=== PATIENT | male | born 1955 | race Caucasian/White ===

== ENCOUNTER 2017-05-12 22:17 | Inpatient (IN) | payer OTHER ==
[2017-05-12] MEDS ORDERED: VANCOMYCIN IV PER PHARMACY 1 EACH MISC MISCELLANE PRN (22:24)
[2017-05-12] MEDS ORDERED: ACETAMINOPHEN TAB 325 MG TAB PO STA (22:25)
[2017-05-12] MEDS: SODIUM CHLORIDE 0.9% 1,000 ML IV SCH (22:32)
[2017-05-12] MEDS ORDERED: NALOXONE 0.4 MG/ML 1 ML VIAL IV PRN (22:40)
[2017-05-12] MEDS ORDERED: ACETAMINOPHEN TAB 325 MG TAB PO PRN (22:40)
--- NOTE | 2017-05-12 22:47 | ED ---
General Adult HPI - General Chief complaint: Extremity Problem,Nontraumatic Stated complaint: Foot ulcer Time Seen by Provider: 05/12/17 22:23 Source: patient, EMS, RN notes reviewed, old records reviewed Mode of arrival: ambulatory Limitations: no limitations - History of Present Illness Initial comments: 61-year-old male with history diabetes presents for evaluation of fever and left foot swelling and erythema. Patient presented to an outside emergency department with these complaints. He was transferred here for further evaluation and treatment. Patient was found to have left lower extremity cellulitis secondary to diabetic wound. He was given a dose of Zosyn prior to transfer. Patient states he had 3 days of fever chills generalized weakness. Noticed that his foot was swollen and erythematous. Patient has no sensation in the lower feet secondary to peripheral neuropathy. He also complained of some lower abdominal pain. No dysuria. No change in bowel habits. Patient did have some nausea without vomiting. No chest pain or shortness of breath. No URI symptoms. - Related Data Home Medications Medication Instructions Recorded Confirmed Aspirin 81 mg PO DAILY 05/08/17 05/12/17 Cholecalciferol [Vitamin D3] 5,000 unit PO DAILY 05/08/17 05/12/17 DULoxetine HCL [Cymbalta] 30 mg PO HS 05/08/17 05/12/17 DULoxetine HCL [Cymbalta] 60 mg PO QAM 05/08/17 05/12/17 Gabapentin [Neurontin] 300 mg PO TID 05/08/17 05/12/17 Insulin Glargine,Hum.rec.anlog 22 unit SQ HS 05/08/17 05/12/17 [Lantus Solostar] Magnesium Oxide [Mag-Ox] 400 mg PO BID 05/08/17 05/12/17 Pioglitazone [Actos] 30 mg PO DAILY 05/08/17 05/12/17 metFORMIN HCL 1,000 mg PO BID 05/08/17 05/12/17 rOPINIRole HCL [Requip] 0.5 mg PO HS 05/08/17 05/12/17 Allergies Allergy/AdvReac Type Severity Reaction Status Date / Time No Known Allergies Allergy Verified 05/12/17 22:39 Review of Systems ROS Statement: Those systems with pertinent positive or pertinent negative responses have been documented in the HPI. ROS Other: All systems not noted in ROS Statement are negative. Past Medical History Past Medical History: Diabetes Mellitus Additional Past Medical History / Comment(s): back and neck pain History of Any Multi-Drug Resistant Organisms: None Reported Additional Past Surgical History / Comment(s): cyst removed back Past Anesthesia/Blood Transfusion Reactions: No Reported Reaction Past Psychological History: Depression Smoking Status: Never smoker - Past Family History Mother Family Medical History: Cancer Father Family Medical History: Myocardial Infarction ([place]) General Exam Limitations: no limitations General appearance: alert, in no apparent distress Head exam: Present: atraumatic, normocephalic Eye exam: Present: normal appearance, PERRL ENT exam: Present: mucous membranes dry Neck exam: Present: normal inspection. Absent: tenderness, meningismus Respiratory exam: Present: normal lung sounds bilaterally. Absent: respiratory distress Cardiovascular Exam: Present: regular rate, normal rhythm GI/Abdominal exam: Present: soft. Absent: distended, tenderness exam: Present: normal inspection. Absent: testicular tenderness, urethral discharge, scrotal swelling Extremities exam: Present: pedal edema, other (Left foot is erythematous, swollen, no fluctuance to suggest focal abscess. No crepitus.). Absent: tenderness Neurological exam: Present: alert, oriented X3, CN II-XII intact. Absent: motor sensory deficit Psychiatric exam: Present: normal affect, normal mood Skin exam: Present: warm, dry, intact Course Vital Signs 05/12/17 22:19 Temperature 102.1 F H Pulse Rate 102 H Respiratory 20 Rate Blood Pressure 113/55 O2 Sat by Pulse 95 Oximetry Medical Decision Making - Medical Decision Making 61-year-old male transferred for evaluation treatment of left foot cellulitis with sepsis. Laboratory studies were obtained, white blood cell count 15.8, hemoglobin 12.8, lactic acid 1.6, creatinine 1.0, there was mild hyponatremia at 129. Blood cultures were obtained at outside institution and are pending. Sedimentation rate was elevated at 72. CT the abdomen was performed and interpreted as inflammation surrounding both the bladder and prostate consistent with cystitis and proctitis. Urinalysis is obtained at this institution as well as urine culture. Patient was given a dose antibiotics prior to this culture being obtained. There was also 11 mm liver lesion. X- ray of the foot shows soft tissue swelling, no subcutaneous gas or osteomyelitis. Patient given Zosyn prior to transfer. He is continued on Zosyn and started on vancomycin. He will be admitted for continued antibiotics. Urinalysis and urine culture pending. Repeat labs will be obtained in the morning. Disposition Clinical Impression: Cellulitis, Cellulitis of left foot, Sepsis Disposition: ADMITTED IP TO THIS HOSP Condition: Stable Referrals: Shashank Kumar MD [Primary Care Provider] - 1-2 days Decision to Admit Reason: Admit from EC Decision Date: 05/12/17 Decision Time: 22:47
[2017-05-12] MEDS ORDERED: VANCOMYCIN 1,500 MG in SODIUM CHLORIDE 0.9% 250 ML IVPB ONE (23:30)
[2017-05-12 23:35] LABS: Glucose,Whole Blood 211 mg/dL (75-99)
[2017-05-13] MEDS: SODIUM CHLORIDE 0.9% 1,000 ML IV SCH (00:17)
[2017-05-13] MEDS: INSULIN DETEMIR 100 UNIT/ML 10 ML VIAL SQ SCH ×2 (00:17→21:57)
[2017-05-13] MEDS: PIPERACILLIN-TAZOBACTAM 3.375 GM in DEXTROSE/WATER 1 50ML.BAG IVPB SCH ×4 (03:06→17:54)
[2017-05-13 07:07] LABS: Glucose,Whole Blood 251 mg/dL (75-99)
[2017-05-13 07:38] LABS: Basophils % (A) 0 %; Eosinophils % (A) 0 %; HCT 36.2 % (39.0-53.0); HGB 11.7 gm/dL (13.0-17.5); Lymphocytes # (A) 1.2 k/uL (1.0-4.8); Lymphocytes % (A) 10 %; MCH 29.8 pg (25.0-35.0); MCHC 32.4 g/dL (31.0-37.0); MCV 92.1 fL (80.0-100.0); Mean Platelet Volume 7.7; Monocytes # (A) 0.7 k/uL (0-1.0); Monocytes % (A) 6 %; Neutrophils # (A) 9.4 k/uL (1.3-7.7); Neutrophils % (A) 81 %; Platelet Count 199 k/uL (150-450); RBC 3.93 m/uL (4.30-5.90); RDW 12.7 % (11.5-15.5); WBC 11.6 k/uL (3.8-10.6)
[2017-05-13 08:01] LABS: ALT 67 U/L (21-72); AST 49 U/L (17-59); Albumin 3.3 g/dL (3.5-5.0); Alkaline Phosphatase 210 U/L (38-126); Anion Gap 9 mmol/L; Blood Urea Nitrogen 18 mg/dL (9-20); Carbon Dioxide 29 mmol/L (22-30); Chloride 97 mmol/L (98-107); Glucose 275 mg/dL (74-99); Magnesium 1.6 mg/dL (1.6-2.3); Potassium 4.5 mmol/L (3.5-5.1); Sodium 135 mmol/L (137-145); Total Bilirubin 0.8 mg/dL (0.2-1.3); Total Protein 5.9 g/dL (6.3-8.2)
[2017-05-13] MEDS: INSULIN ASPART 100 UNIT/ML 1 ML 10 ML VIAL SQ SCH ×4 (08:32→21:57)
[2017-05-13] MEDS: GABAPENTIN 300 MG CAP PO SCH ×3 (08:34→21:57)
[2017-05-13] MEDS: ASPIRIN 81 MG PO SCH (08:34)
[2017-05-13] MEDS: metFORMIN 500 MG TAB PO SCH ×3 (08:34→17:03)
[2017-05-13] MEDS: DULoxetine HCL 60 MG CAPSULE.DR PO SCH (08:34)
[2017-05-13] MEDS: VANCOMYCIN 1,500 MG in SODIUM CHLORIDE 0.9% 250 ML IVPB SCH ×2 (09:52→22:33)
[2017-05-13] MEDS ORDERED: PIPERACILLIN-TAZOBACTAM 3.375 GM in DEXTROSE/WATER 1 50ML.BAG IVPB SCH (11:00)
[2017-05-13 11:46] LABS: Glucose,Whole Blood 257 mg/dL (75-99)
[2017-05-13] MEDS ORDERED: VANCOMYCIN 1,500 MG in SODIUM CHLORIDE 0.9% 250 ML IVPB SCH (12:00)
[2017-05-13 12:23] LABS: Hemoglobin A1C 10.3 % (4.0-6.0)
--- NOTE | 2017-05-13 12:34 | P.HPIM ---
History of Present Illness 61-year-old male with history diabetes presents for evaluation of fever and left foot swelling and erythema. Patient presented to an outside emergency department with these complaints. He was transferred here for further evaluation and treatment. Patient was found to have left lower extremity cellulitis secondary to diabetic wound. He was given a dose of Zosyn prior to transfer. Patient states he had 3 days of fever chills generalized weakness. Noticed that his foot was swollen and erythematous. Patient has no sensation in the lower feet secondary to peripheral neuropathy. He also complained of some lower abdominal pain CAT scan of the abdomen his abdominal pain completely resolved now CAT scan of the abdomen did show proctitis CONTINUE his Zosyn and vancomycin, counseling infectious disease because of multiple antibiotic decisions in for his colitis and cellulitis although his cellulitis is not bad. Patient probably can be discharged tomorrow with antibiotics.. No dysuria. No change in bowel habits. Patient did have some nausea without vomiting. No chest pain or shortness of breath. No URI symptoms. Review of Systems REVIEW OF SYSTEMS: CONSTITUTIONAL: No fever, no malaise, no fatigue. HEENT: No recent visual problems or hearing problems. Denied any sore throat. CARDIOVASCULAR: No chest pain, orthopnea, PND, no palpitations, no syncope. PULMONARY: No shortness of breath, no cough, no hemoptysis. GASTROINTESTINAL: No diarrhea, no nausea, no vomiting, Normoactive bowel sounds. NEUROLOGICAL: No headaches, no weakness, no numbness. HEMATOLOGICAL: Denies any bleeding or petechiae. GENITOURINARY: Denies any burning micturition, frequency, or urgency. MUSCULOSKELETAL/RHEUMATOLOGICAL: Denies any joint pain, swelling, or any muscle pain. ENDOCRINE: Denies any polyuria or polydipsia. The rest of the 14-point review of systems is negative. Past Medical History Past Medical History: Diabetes Mellitus Additional Past Medical History / Comment(s): back and neck pain History of Any Multi-Drug Resistant Organisms: None Reported Additional Past Surgical History / Comment(s): upper back cyst removed Past Anesthesia/Blood Transfusion Reactions: No Reported Reaction Past Psychological History: Depression Smoking Status: Never smoker Past Alcohol Use History: Rare Past Drug Use History: None Reported - Past Family History Mother Family Medical History: Cancer Father Family Medical History: Myocardial Infarction ([place]) Medications and Allergies Home Medications Medication Instructions Recorded Confirmed Type Aspirin 81 mg PO DAILY 05/08/17 05/12/17 History Cholecalciferol [Vitamin D3] 5,000 unit PO DAILY 05/08/17 05/12/17 History DULoxetine HCL [Cymbalta] 30 mg PO HS 05/08/17 05/12/17 History DULoxetine HCL [Cymbalta] 60 mg PO QAM 05/08/17 05/12/17 History Gabapentin [Neurontin] 300 mg PO TID 05/08/17 05/12/17 History Insulin Glargine,Hum.rec.anlog 22 unit SQ HS 05/08/17 05/12/17 History [Lantus Solostar] Magnesium Oxide [Mag-Ox] 400 mg PO BID 05/08/17 05/12/17 History Pioglitazone [Actos] 30 mg PO DAILY 05/08/17 05/12/17 History metFORMIN HCL 1,000 mg PO BID 05/08/17 05/12/17 History rOPINIRole HCL [Requip] 0.5 mg PO HS 05/08/17 05/12/17 History Allergies Allergy/AdvReac Type Severity Reaction Status Date / Time No Known Allergies Allergy Verified 05/12/17 22:39 Physical Exam Vitals: Vital Signs Temp Pulse Pulse Resp BP BP Pulse Ox 05/13/17 07:00 98.9 F 97 16 163/96 94 L 05/12/17 23:37 98.0 F 97 16 117/69 97 05/12/17 22:19 102.1 F H 102 H 20 113/55 95 Intake and Output 05/12/17 05/13/17 05/13/17 22:59 06:59 14:59 Intake Total 50 Balance 50 Intake: Amount of Fluid Infused ( 50 ml) Other: Voiding Method Toilet Urinal # Voids 0 Weight 86.183 kg PHYSICAL EXAMINATION: GENERAL: The patient is alert and oriented x3, not in any acute distress. Well developed, well nourished. HEENT: Pupils are round and equally reacting to light. EOMI. No scleral icterus. No conjunctival pallor. Normocephalic, atraumatic. No pharyngeal erythema. No thyromegaly. CARDIOVASCULAR: S1 and S2 present. No murmurs, rubs, or gallops. PULMONARY: Chest is clear to auscultation, no wheezing or crackles. ABDOMEN: Soft, nontender, nondistended, normoactive bowel sounds. No palpable organomegaly. MUSCULOSKELETAL: No joint swelling or deformity. EXTREMITIES: No cyanosis, clubbing, left leg redness and cellulitis extending Adams meters about the ankle with local is of temperature. NEUROLOGICAL: Gross neurological examination did not reveal any focal deficits. SKIN: No rashes. Results CBC & Chem 7: 05/13/17 07:09 05/13/17 07:09 Labs: Abnormal Lab Results - Last 24 Hours (Table) 05/12/17 05/13/17 05/13/17 Range/Units 23:34 07:05 07:09 WBC 11.6 H (3.8-10.6) k/uL RBC 3.93 L (4.30-5.90) m/uL Hgb 11.7 L (13.0-17.5) gm/dL Hct 36.2 L (39.0-53.0) % Neutrophils # 9.4 H (1.3-7.7) k/uL Sodium (137-145) mmol/L Chloride (98-107) mmol/L Glucose (74-99) mg/dL POC Glucose (mg/dL) 211 H 251 H (75-99) mg/dL Alkaline Phosphatase (38-126) U/L Total Protein (6.3-8.2) g/dL Albumin (3.5-5.0) g/dL 05/13/17 05/13/17 Range/Units 07:09 11:44 WBC (3.8-10.6) k/uL RBC (4.30-5.90) m/uL Hgb (13.0-17.5) gm/dL Hct (39.0-53.0) % Neutrophils # (1.3-7.7) k/uL Sodium 135 L (137-145) mmol/L Chloride 97 L (98-107) mmol/L Glucose 275 H (74-99) mg/dL POC Glucose (mg/dL) 257 H (75-99) mg/dL Alkaline Phosphatase 210 H (38-126) U/L Total Protein 5.9 L (6.3-8.2) g/dL Albumin 3.3 L (3.5-5.0) g/dL Thrombosis Risk Factor Assmnt - Choose All That Apply Any of the Below Risk Factors Present?: Yes Each Factor Represents 1 point: Age 41-60 years, Obesity (BMI >25) Other Risk Factors: No Thrombosis Risk Factor Assessment Total Risk Factor Score: 2 Thrombosis Risk Factor Assessment Level: Low Risk Assessment and Plan Plan: -Left lower limb cellulitis: Continue vancomycin, consult infectious disease. -Possibly of proctitis of diverticulitis: Patient is on Zosyn which will be continued. -Type 2 diabetes mellitus well controlled blood sugars continue his home regimen with sliding scale insulin and titrated as needed -Chronic low back pain -Depression: Continue his home medications for that Plan is to continue Diovan emetics today possibly of discharge tomorrow patient probably can be discharged on Keflex and ciprofloxacin
[2017-05-13 16:26] LABS: Glucose,Whole Blood 198 mg/dL (75-99)
[2017-05-13] MEDS: AMPICILLIN-SULBACTAM 3 GM in SODIUM CHLORIDE 0.9% 100 ML IVPB SCH (17:03)
[2017-05-13 20:01] LABS: Glucose,Whole Blood 297 mg/dL (75-99)
[2017-05-13] MEDS: DULoxetine HCL 30 MG CAPSULE.DR PO SCH (21:57)
[2017-05-13 22:17] LABS: Appearance,Urine Clear (Clear); Bilirubin,Urine Negative (Negative); Blood,Urine Negative (Negative); Color,Urine Yellow; Glucose,Urine (UA) 4+ (Negative); Ketones,Urine Trace (Negative); Leukocyte Esterase,Urine Negative (Negative); Nitrite,Urine Negative (Negative); PH, Urine 5.5 (5.0-8.0); Protein,Urine Trace (Negative); Urobilinogen,Urine <2.0 mg/dL (<2.0)
[2017-05-14] MEDS: AMPICILLIN-SULBACTAM 3 GM in SODIUM CHLORIDE 0.9% 100 ML IVPB SCH ×2 (00:38→05:41)
[2017-05-14 06:59] LABS: HCT 32.3 % (39.0-53.0); MCH 31.2 pg (25.0-35.0); MCHC 34.1 g/dL (31.0-37.0); MCV 91.4 fL (80.0-100.0); Mean Platelet Volume 8.2; Platelet Count 200 k/uL (150-450); RBC 3.54 m/uL (4.30-5.90); RDW 13.5 % (11.5-15.5); WBC 12.5 k/uL (3.8-10.6)
[2017-05-14 07:09] LABS: Glucose,Whole Blood 257 mg/dL (75-99)
[2017-05-14 07:19] LABS: Anion Gap 9 mmol/L; Blood Urea Nitrogen 14 mg/dL (9-20); Calcium 8.9 mg/dL (8.4-10.2); Carbon Dioxide 28 mmol/L (22-30); Chloride 97 mmol/L (98-107); Glucose 239 mg/dL (74-99); Potassium 4.4 mmol/L (3.5-5.1); Sodium 134 mmol/L (137-145)
[2017-05-14] MEDS: INSULIN ASPART 100 UNIT/ML 1 ML 10 ML VIAL SQ SCH ×5 (09:03→21:08)
[2017-05-14] MEDS: GABAPENTIN 300 MG CAP PO SCH ×3 (09:04→21:08)
[2017-05-14] MEDS: PIOGLITAZONE 30 MG TAB PO SCH (09:04)
[2017-05-14] MEDS: DULoxetine HCL 60 MG CAPSULE.DR PO SCH (09:04)
[2017-05-14] MEDS: ASPIRIN 81 MG PO SCH (09:04)
[2017-05-14] MEDS: metFORMIN 500 MG TAB PO SCH ×2 (09:05→17:36)
[2017-05-14] MEDS: VANCOMYCIN 1,500 MG in SODIUM CHLORIDE 0.9% 250 ML IVPB SCH (09:05)
[2017-05-14] MEDS ORDERED: VANCOMYCIN 1,500 MG in SODIUM CHLORIDE 0.9% 250 ML IVPB SCH (10:57)
[2017-05-14 11:03] VITALS: BMI 30.7
[2017-05-14 11:36] LABS: Glucose,Whole Blood 303 mg/dL (75-99)
[2017-05-14] MEDS: SODIUM CHLORIDE 0.9% 1,000 ML IV SCH ×4 (12:50→23:36)
--- NOTE | 2017-05-14 16:24 | CONS ---
CONSULTATION DATE OF SERVICE: 05/14/17 REASON FOR CONSULTATION: Left foot cellulitis. HISTORY OF PRESENT ILLNESS: The patient is a 61-year-old male patient. The patient apparently started having a problem with his left foot mostly with swelling and redness. The patient did have a small superficial wound on the dorsum of the left foot. However, the patient thinks he may have injured it a few days ago. The area did become more swollen and red 2 days. The patient denies any pain as he did have underlying neuropathy. Apparently the patient started having a fever and chills and generalized weakness for which the patient went to an outside facility where the patient was evaluated. He was diagnosed with cellulitis. He did receive a dose of Zosyn and subsequently patient has been transferred to the [facility]. The patient was started on Unasyn and vancomycin and ID was consulted for further recommendations regarding antibiotic therapy. The patient currently denies having any chest pain or shortness of breath or cough. No abdominal pain and no diarrhea. REVIEW OF SYSTEMS: Constitutional: Positive for weakness along with the fever. Eyes: No complaint. ENT no complaint. Respiratory: No complaint. Cardiovascular: No complaint. Genitourinary no complaint. GASTROINTESTINAL: No complaint. Musculoskeletal as per HPI. Integumentary as per HPI. PSYCHOLOGICAL: No complaint. Endocrine no complaint. Neurologic no complaint. PAST MEDICAL HISTORY: Significant for diabetes mellitus, chronic back and neck pain, osteoarthritis, along with depression. PAST SURGICAL HISTORY: Cyst removed from the upper back. SOCIAL HISTORY: No history of smoking. Socially drinks. No drug use. FAMILY HISTORY: Father history of [place]. Mother history of cancer of unknown type. MEDICATION: Medications include the patient currently on Tylenol, aspirin, Cymbalta, Neurontin, NovoLog, Levemir, Glucophage, Narcan, Actos, Requip, Unasyn and vancomycin along with Silvadene cream. EXAMINATION: Blood pressure 117/56, pulse of 98, temperature of 99.1. He did have a fever of 102 on admission. He is 93% on room air. General description is a middle-aged male lying in bed in no distress. No tachypnea or accessory muscles of respiration use. HEENT: Shows slight pallor. No scleral icterus. Oral mucosal membranes dry. No pharyngeal erythema or thrush Neck trachea central. No thyromegaly. Lungs unlabored breathing. Clear to auscultation anteriorly. No wheeze or crackles. Heart S1, S2. Regular rate and rhythm. No murmur ABDOMEN: Soft, no tenderness. No guarding. No rigidity. no Organomegaly Extremities: No edema of the feet. Examination of the left foot with swelling, redness, slightly warm to touch. Did have evidence of athlete's foot. No fluctuation or induration. Neurological: Patient is awake, alert, oriented x3. Mood and affect normal. LABS: Hemoglobin is 11 with white count 12.5, BUN of 14, creatinine 0.84. No cultures done during this admission. DIAGNOSTIC IMPRESSION AND PLAN: Patient with left foot cellulitis with diffuse swelling and redness likely streptococcal disease. The patient also have a evidence of athlete's foot. Both his factor will point towards a streptococcal disease and Clinically doubt abscess or MRSA infection. PLAN: 1. We will switch antibiotic therapy to cefazolin 2 g q.8 hours and discontinue Unasyn and vancomycin. 2. Miconazole cream in between the toes twice a day. 3. Frantz wrap to keep some of the swelling down. 4. We will evaluate the patient tomorrow and if the patient did have overall improvement. He will be able to finish therapy with oral Keflex. Continue supportive care. MMODL / IJN: [id number] / ZEKE
[2017-05-14 17:00] LABS: Glucose,Whole Blood 285 mg/dL (75-99)
--- NOTE | 2017-05-14 17:22 | P.PN ---
Subjective Progress Note Date: 05/14/17 Progress note being dictated for Dr. Camacho. Interval history:61-year-old male with history diabetes presents for evaluation of fever and left foot swelling and erythema. Patient presented to an outside emergency department with these complaints. He was transferred here for further evaluation and treatment. Patient was found to have left lower extremity cellulitis secondary to diabetic wound. He was given a dose of Zosyn prior to transfer. Patient states he had 3 days of fever chills generalized weakness. Noticed that his foot was swollen and erythematous. Patient has no sensation in the lower feet secondary to peripheral neuropathy. He also complained of some lower abdominal pain CAT scan of the abdomen his abdominal pain completely resolved now CAT scan of the abdomen did show proctitis CONTINUE his Zosyn and vancomycin, counseling infectious disease because of multiple antibiotic decisions in for his colitis and cellulitis although his cellulitis is not bad. Patient probably can be discharged tomorrow with antibiotics.. No dysuria. No change in bowel habits. Patient did have some nausea without vomiting. No chest pain or shortness of breath. No URI symptoms. Review of Systems REVIEW OF SYSTEMS: CONSTITUTIONAL: No fever, no malaise, no fatigue. HEENT: No recent visual problems or hearing problems. Denied any sore throat. CARDIOVASCULAR: No chest pain, orthopnea, PND, no palpitations, no syncope. PULMONARY: No shortness of breath, no cough, no hemoptysis. GASTROINTESTINAL: No diarrhea, no nausea, no vomiting, Normoactive bowel sounds. NEUROLOGICAL: No headaches, no weakness, no numbness. HEMATOLOGICAL: Denies any bleeding or petechiae. GENITOURINARY: Denies any burning micturition, frequency, or urgency. MUSCULOSKELETAL/RHEUMATOLOGICAL: Denies any joint pain, swelling, or any muscle pain. ENDOCRINE: Denies any polyuria or polydipsia. The rest of the 14-point review of systems is negative. 05/14/2017. Persistent low-grade fevers, T-max 99.8. Complains of generalized weakness. Evaluated by infectious disease and antibiotics therapy adjusted to ceftezolin with Unasyn and vancomycin discontinued. Good diet intake denies nausea, vomiting, or diarrhea. Denies chest pain, palpitations or increased shortness of breath. Blood sugars elevated. Objective - Vital Signs Vital signs: Vital Signs Temp 99.1 F 05/14/17 14:29 Pulse 95 01/16/18 16:00 Resp 18 05/14/17 16:00 BP 109/56 05/14/17 14:29 Pulse Ox 93 L 05/14/17 14:29 Intake & Output 05/13/17 05/14/17 05/14/17 18:59 06:59 18:59 Intake Total 5579 307 7085 Balance 5536 196 8468 Weight 86.183 kg Intake: Intake, IV Titration 400 750 650 Amount Ampicillin-Sulbactam 3 gm 100 100 100 In Sodium Chloride 0.9% 100 ml @ 100 mls/hr IVPB Q6HR ROXI Rx#:[id number] Piperacillin-Tazobactam 3 50 .375 gm In Dextrose/Water 1 50ml.bag @ 12.5 mls/hr IVPB Q8H ROXI Rx#: [id number] Sodium Chloride 0.9% 1, 400 300 000 ml @ 50 mls/hr IV . Q20H ROXI Rx#:[id number] Vancomycin 1,500 mg In 250 250 Sodium Chloride 0.9% 250 ml @ 125 mls/hr IVPB BID@ 0900,2300 ROXI Rx#: [id number] Vancomycin 1,500 mg In 250 Sodium Chloride 0.9% 250 ml @ 125 mls/hr IVPB Q12HR ROXI Rx#:[id number] Oral [id number] Other: Voiding Method Toilet Toilet Toilet Urinal Urinal Urinal # Voids 3 1 3 - Exam GENERAL: The patient is alert and oriented x3, not in any acute distress. Well developed, well nourished. HEENT: Pupils are round and equally reacting to light. EOMI. No scleral icterus. No conjunctival pallor. Normocephalic, atraumatic. No pharyngeal erythema. No thyromegaly. CARDIOVASCULAR: S1 and S2 present. No murmurs, rubs, or gallops. PULMONARY: Chest is clear to auscultation, no wheezing or crackles. ABDOMEN: Soft, nontender, nondistended, normoactive bowel sounds. No palpable organomegaly. MUSCULOSKELETAL: No joint swelling or deformity. EXTREMITIES: No cyanosis, clubbing, left leg redness and cellulitis with Frantz wrap dressing clean dry and intact NEUROLOGICAL: Gross neurological examination did not reveal any focal deficits. SKIN: No rashes. - Labs CBC & Chem 7: 05/14/17 06:32 05/14/17 06:32 Labs: Abnormal Lab Results - Last 24 Hours (Table) 05/13/17 05/13/17 05/14/17 Range/Units 19:58 22:00 06:32 WBC 12.5 H (3.8-10.6) k/uL RBC 3.54 L (4.30-5.90) m/uL Hgb 11.0 L (13.0-17.5) gm/dL Hct 32.3 L (39.0-53.0) % Sodium (137-145) mmol/L Chloride (98-107) mmol/L Glucose (74-99) mg/dL POC Glucose (mg/dL) 297 H (75-99) mg/dL Urine Protein Trace H (Negative) Urine Glucose (UA) 4+ H (Negative) Urine Ketones Trace H (Negative) 05/14/17 05/14/17 05/14/17 Range/Units 06:32 07:07 11:30 WBC (3.8-10.6) k/uL RBC (4.30-5.90) m/uL Hgb (13.0-17.5) gm/dL Hct (39.0-53.0) % Sodium 134 L (137-145) mmol/L Chloride 97 L (98-107) mmol/L Glucose 239 H (74-99) mg/dL POC Glucose (mg/dL) 257 H 303 H (75-99) mg/dL Urine Protein (Negative) Urine Glucose (UA) (Negative) Urine Ketones (Negative) 05/14/17 Range/Units 16:58 WBC (3.8-10.6) k/uL RBC (4.30-5.90) m/uL Hgb (13.0-17.5) gm/dL Hct (39.0-53.0) % Sodium (137-145) mmol/L Chloride (98-107) mmol/L Glucose (74-99) mg/dL POC Glucose (mg/dL) 285 H (75-99) mg/dL Urine Protein (Negative) Urine Glucose (UA) (Negative) Urine Ketones (Negative) Microbiology - Last 24 Hours (Table) 05/13/17 22:00 Urine Culture - Preliminary Urine,Clean Catch Assessment and Plan Assessment: -Left lower limb cellulitis: Continue vancomycin, consult infectious disease. -Possibly of proctitis of diverticulitis: Patient is on Zosyn which will be continued. -Type 2 diabetes mellitus, HGBA1C 10.3 -Chronic low back pain -Depression: Continue his home medications for that Plan: Continue current medication regime ,monitoring. Antibiotics as per infectious disease. Increase IV fluids to 0.9 100 MLS per hour, persistent fevers. Close monitoring of Accu-Cheks, Levemir increased and pre-meal insulin added to med regime. Hemoglobin A1c 10.3 .informatics educator and dietitian consulted. Patient will also need outpatient diabetes education. Discharge planning in progress for tomorrow. The impression and plan of care has been dictated as directed. : I performed a history and examination of this patient, discussed the same with the dictator. I agree with the dictator's note ,documented as a scribe. Any additional findings or plans will be noted.
[2017-05-14] MEDS: ceFAZolin IN SWFI 2 GM/20 ML SYRINGE IVP SCH ×2 (17:36→23:36)
[2017-05-14 19:51] LABS: Glucose,Whole Blood 251 mg/dL (75-99)
[2017-05-14] MEDS ORDERED: INSULIN DETEMIR 100 UNIT/ML 10 ML VIAL SQ SCH (21:00)
[2017-05-14] MEDS: DULoxetine HCL 30 MG CAPSULE.DR PO SCH (21:08)
[2017-05-15 07:09] LABS: Basophils % (A) 0 %; Eosinophils # (A) 0.1 k/uL (0-0.7); Eosinophils % (A) 1 %; HCT 32.3 % (39.0-53.0); HGB 10.8 gm/dL (13.0-17.5); Lymphocytes # (A) 1.4 k/uL (1.0-4.8); Lymphocytes % (A) 12 %; MCH 30.5 pg (25.0-35.0); MCHC 33.5 g/dL (31.0-37.0); MCV 91.1 fL (80.0-100.0); Mean Platelet Volume 7.9; Monocytes # (A) 0.7 k/uL (0-1.0); Monocytes % (A) 6 %; Neutrophils % (A) 78 %; Platelet Count 230 k/uL (150-450); RBC 3.54 m/uL (4.30-5.90); RDW 13.1 % (11.5-15.5); WBC 11.5 k/uL (3.8-10.6)
[2017-05-15 07:20] LABS: Glucose,Whole Blood 112 mg/dL (75-99)
[2017-05-15] MEDS: INSULIN ASPART 100 UNIT/ML 1 ML 10 ML VIAL SQ SCH ×6 (07:25→20:42)
[2017-05-15] MEDS: ceFAZolin IN SWFI 2 GM/20 ML SYRINGE IVP SCH ×2 (07:25→16:29)
[2017-05-15] MEDS: GABAPENTIN 300 MG CAP PO SCH ×3 (07:26→21:00)
[2017-05-15] MEDS: metFORMIN 500 MG TAB PO SCH ×2 (07:26→18:21)
[2017-05-15] MEDS: DULoxetine HCL 60 MG CAPSULE.DR PO SCH (07:26)
[2017-05-15] MEDS: ASPIRIN 81 MG PO SCH (07:27)
[2017-05-15] MEDS: PIOGLITAZONE 30 MG TAB PO SCH (07:27)
[2017-05-15 07:34] LABS: Anion Gap 9 mmol/L; Blood Urea Nitrogen 14 mg/dL (9-20); Calcium 8.4 mg/dL (8.4-10.2); Carbon Dioxide 29 mmol/L (22-30); Chloride 99 mmol/L (98-107); Glucose 123 mg/dL (74-99); Sodium 137 mmol/L (137-145)
[2017-05-15] MEDS ORDERED: VANCOMYCIN TROUGH DUE 1 EACH MISC MISCELLANE ONE (08:00)
[2017-05-15 11:29] LABS: Glucose,Whole Blood 69 mg/dL (75-99)
[2017-05-15] MEDS: SODIUM CHLORIDE 0.9% 1,000 ML IV SCH ×3 (13:12→20:44)
[2017-05-15] MEDS: MICONAZOLE NITRATE 2% CREAM 14 GM TUBE TOPICAL SCH ×2 (13:12→20:43)
--- NOTE | 2017-05-15 14:25 | PN ---
PROGRESS NOTE DATE OF SERVICE: 05/15/2017 REASON FOR FOLLOWUP: Left foot cellulitis, athlete's foot. INTERVAL HISTORY: The patient is afebrile, has been breathing comfortably. Denies having any significant chest pain. No cough. No abdominal pain. No nausea, vomiting, or any diarrhea. PHYSICAL EXAMINATION: His blood pressure is 123/71 with a pulse of 94, temperature of 98.9. He is 92% on room air. General description is a middle-aged male, up in the chair in no distress. RESPIRATORY SYSTEM: Unlabored breathing, clear to auscultation anteriorly. HEART: S1, S2, regular rate and rhythm. ABDOMEN: Soft, no tenderness. Left foot swelling is slightly improved. LABS: Hemoglobin is 10.1, white count 11.5, BUN of 14, creatinine 0.82. Culture has been negative. DIAGNOSTIC IMPRESSION AND PLAN: 1. Patient with left foot cellulitis. Overall responding to the cefazolin. Recommend finish therapy with oral Keflex 500 mg q.6 for 10 days. Script was sent to the Pharmacy. 2. Athlete's foot in between toes. Also recommend an Frantz wrap to keep some of the swelling down. MMODL / IJN: [id number] /
--- NOTE | 2017-05-15 17:12 | P.PN ---
Subjective Progress Note Date: 05/15/17 Progress note being dictated for Dr. Camacho. Interval history:61-year-old male with history diabetes presents for evaluation of fever and left foot swelling and erythema. Patient presented to an outside emergency department with these complaints. He was transferred here for further evaluation and treatment. Patient was found to have left lower extremity cellulitis secondary to diabetic wound. He was given a dose of Zosyn prior to transfer. Patient states he had 3 days of fever chills generalized weakness. Noticed that his foot was swollen and erythematous. Patient has no sensation in the lower feet secondary to peripheral neuropathy. He also complained of some lower abdominal pain CAT scan of the abdomen his abdominal pain completely resolved now CAT scan of the abdomen did show proctitis CONTINUE his Zosyn and vancomycin, counseling infectious disease because of multiple antibiotic decisions in for his colitis and cellulitis although his cellulitis is not bad. Patient probably can be discharged tomorrow with antibiotics.. No dysuria. No change in bowel habits. Patient did have some nausea without vomiting. No chest pain or shortness of breath. No URI symptoms. Review of Systems REVIEW OF SYSTEMS: CONSTITUTIONAL: No fever, no malaise, no fatigue. HEENT: No recent visual problems or hearing problems. Denied any sore throat. CARDIOVASCULAR: No chest pain, orthopnea, PND, no palpitations, no syncope. PULMONARY: No shortness of breath, no cough, no hemoptysis. GASTROINTESTINAL: No diarrhea, no nausea, no vomiting, Normoactive bowel sounds. NEUROLOGICAL: No headaches, no weakness, no numbness. HEMATOLOGICAL: Denies any bleeding or petechiae. GENITOURINARY: Denies any burning micturition, frequency, or urgency. MUSCULOSKELETAL/RHEUMATOLOGICAL: Denies any joint pain, swelling, or any muscle pain. ENDOCRINE: Denies any polyuria or polydipsia. The rest of the 14-point review of systems is negative. 05/14/2017. Persistent low-grade fevers, T-max 99.8. Complains of generalized weakness. Evaluated by infectious disease and antibiotics therapy adjusted to ceftezolin with Unasyn and vancomycin discontinued. Good diet intake denies nausea, vomiting, or diarrhea. Denies chest pain, palpitations or increased shortness of breath. Blood sugars elevated. 05/15/2017 maintained on cefazolin, afebrile. ambulating in hallway, with walker , generalized weakness. Discussed subacute rehab and patient agreeable to. Consult initiated for PT/OT. Blood sugars running on the lower side today. Denies chest pain palpitations or increasing shortness of breath. Good diet intake. Denies abdominal pain, no nausea vomiting or diarrhea. Objective - Vital Signs Vital signs: Vital Signs Temp 97.9 F 05/15/17 15:00 Pulse 96 05/15/17 16:00 Resp 16 05/15/17 16:00 BP 121/71 05/15/17 15:00 Pulse Ox 97 05/15/17 15:00 Intake & Output 05/14/17 05/15/17 05/15/17 18:59 06:59 18:59 Intake Total 1730 640 800 Balance 1730 640 800 Weight 86.183 kg 86.183 kg 86.183 kg Intake: Intake, IV Titration 650 400 800 Amount Ampicillin-Sulbactam 3 gm 100 In Sodium Chloride 0.9% 100 ml @ 100 mls/hr IVPB Q6HR [facility] Rx#:[id number] Sodium Chloride 0.9% 1, 300 400 800 000 ml @ 100 mls/hr IV . Q10H [facility] Rx#:[id number] Vancomycin 1,500 mg In 250 Sodium Chloride 0.9% 250 ml @ 125 mls/hr IVPB Q12HR [facility] Rx#:[id number] Oral 1080 240 Other: Voiding Method Toilet Toilet Toilet Urinal Urinal Urinal # Voids 3 1 # Bowel Movements 1 - Exam GENERAL: The patient is alert and oriented x3, not in any acute distress. Well developed, well nourished. HEENT: Pupils are round and equally reacting to light. EOMI. No scleral icterus. No conjunctival pallor. Normocephalic, atraumatic. No pharyngeal erythema. No thyromegaly. CARDIOVASCULAR: S1 and S2 present. No murmurs, rubs, or gallops. PULMONARY: Unlabored, Chest is clear to auscultation, no wheezing or crackles. ABDOMEN: Soft, nontender, nondistended, normoactive bowel sounds. No palpable organomegaly. MUSCULOSKELETAL: No joint swelling or deformity. EXTREMITIES: No cyanosis, clubbing, left leg redness and cellulitis with Frantz wrap dressing clean dry and intact NEUROLOGICAL: Gross neurological examination did not reveal any focal deficits. SKIN: No rashes. - Labs CBC & Chem 7: 05/15/17 06:46 05/15/17 06:46 Labs: Abnormal Lab Results - Last 24 Hours (Table) 05/14/17 05/15/17 05/15/17 Range/Units 19:50 06:46 06:46 WBC 11.5 H (3.8-10.6) k/uL RBC 3.54 L (4.30-5.90) m/uL Hgb 10.8 L (13.0-17.5) gm/dL Hct 32.3 L (39.0-53.0) % Neutrophils # 9.0 H (1.3-7.7) k/uL Glucose 123 H (74-99) mg/dL POC Glucose (mg/dL) 251 H (75-99) mg/dL 05/15/17 05/15/17 Range/Units 07:18 11:27 WBC (3.8-10.6) k/uL RBC (4.30-5.90) m/uL Hgb (13.0-17.5) gm/dL Hct (39.0-53.0) % Neutrophils # (1.3-7.7) k/uL Glucose (74-99) mg/dL POC Glucose (mg/dL) 112 H 69 L (75-99) mg/dL Microbiology - Last 24 Hours (Table) 05/13/17 22:00 Urine Culture - Final Urine,Clean Catch Assessment and Plan Assessment: -Left lower limb cellulitis: Continue vancomycin, consult infectious disease. -Possibly of proctitis of diverticulitis: Patient is on Zosyn which will be continued. -Type 2 diabetes mellitus, HGBA1C 10.3 -Chronic low back pain -Depression Plan: Continue current medication regime ,monitoring. Antibiotics as per infectious disease. PT/OT for potential subacute rehab. Close monitoring of Accu-Cheks, Levemir decreased. Discharge planning in progress for tomorrow. Obtain O2 sat on room air after ambulation for discharge planning. The impression and plan of care has been dictated as directed. : I performed a history and examination of this patient, discussed the same with the dictator. I agree with the dictator's note ,documented as a scribe. Any additional findings or plans will be noted.
[2017-05-15 17:15] LABS: Glucose,Whole Blood 134 mg/dL (75-99)
[2017-05-15 20:22] LABS: Glucose,Whole Blood 168 mg/dL (75-99)
[2017-05-15] MEDS: DULoxetine HCL 30 MG CAPSULE.DR PO SCH (20:42)
[2017-05-15] MEDS: INSULIN DETEMIR 100 UNIT/ML 10 ML VIAL SQ SCH (20:43)
[2017-05-16] MEDS: ceFAZolin IN SWFI 2 GM/20 ML SYRINGE IVP SCH ×3 (00:26→17:27)
[2017-05-16 07:09] LABS: Glucose,Whole Blood 69 mg/dL (75-99)
[2017-05-16 07:30] LABS: Glucose,Whole Blood 87 mg/dL (75-99)
[2017-05-16] MEDS: metFORMIN 500 MG TAB PO SCH (08:41)
[2017-05-16] MEDS: GABAPENTIN 300 MG CAP PO SCH ×3 (08:41→22:18)
[2017-05-16] MEDS: DULoxetine HCL 60 MG CAPSULE.DR PO SCH (08:41)
[2017-05-16] MEDS: MICONAZOLE NITRATE 2% CREAM 14 GM TUBE TOPICAL SCH ×2 (08:42→22:17)
[2017-05-16] MEDS: ASPIRIN 81 MG PO SCH (08:42)
[2017-05-16] MEDS: PIOGLITAZONE 30 MG TAB PO SCH (08:42)
[2017-05-16] MEDS: INSULIN ASPART 100 UNIT/ML 1 ML 10 ML VIAL SQ SCH ×5 (08:51→23:47)
--- NOTE | 2017-05-16 10:36 | XR ---
EXAMINATION TYPE: XR chest 2V DATE OF EXAM: 05/16/2017 COMPARISON: NONE HISTORY: Shortness of breath TECHNIQUE: Frontal and lateral views of the chest are obtained. FINDINGS: Scattered senescent parenchymal changes noted. Elevation right hemidiaphragm. Patchy density right medial lung base may reflect chronic parenchymal scarring from diaphragmatic chino vation. Underlying infiltrate is difficult to exclude. Heart size is stable. Mediastinal structures are stable and grossly unremarkable. No evidence for hilar prominence. Degenerative changes dorsal spine. IMPRESSION: 1. Patchy density right medial lung base may reflect chronic parenchymal scarring from diaphragmatic elevation. Underlying infiltrate is difficult to exclude.
[2017-05-16] MEDS ORDERED: RX INFO: IV CONTRAST WAS GIVEN 1 EACH MISC MISCELLANE PRN (11:39)
[2017-05-16 11:45] LABS: Glucose,Whole Blood 161 mg/dL (75-99)
[2017-05-16] MEDS: SODIUM CHLORIDE 0.9% 1,000 ML IV SCH (13:08)
[2017-05-16] MEDS ORDERED: LIDOCAINE 1% INJ 10MG/ML (20 ML MDV) SQ ONE (13:20)
--- NOTE | 2017-05-16 16:49 | P.PN ---
Subjective Progress Note Date: 05/16/17 Progress note being dictated for Dr. Camacho. Interval history:61-year-old male with history diabetes presents for evaluation of fever and left foot swelling and erythema. Patient presented to an outside emergency department with these complaints. He was transferred here for further evaluation and treatment. Patient was found to have left lower extremity cellulitis secondary to diabetic wound. He was given a dose of Zosyn prior to transfer. Patient states he had 3 days of fever chills generalized weakness. Noticed that his foot was swollen and erythematous. Patient has no sensation in the lower feet secondary to peripheral neuropathy. He also complained of some lower abdominal pain CAT scan of the abdomen his abdominal pain completely resolved now CAT scan of the abdomen did show proctitis CONTINUE his Zosyn and vancomycin, counseling infectious disease because of multiple antibiotic decisions in for his colitis and cellulitis although his cellulitis is not bad. Patient probably can be discharged tomorrow with antibiotics.. No dysuria. No change in bowel habits. Patient did have some nausea without vomiting. No chest pain or shortness of breath. No URI symptoms. Review of Systems REVIEW OF SYSTEMS: CONSTITUTIONAL: No fever, no malaise, no fatigue. HEENT: No recent visual problems or hearing problems. Denied any sore throat. CARDIOVASCULAR: No chest pain, orthopnea, PND, no palpitations, no syncope. PULMONARY: No shortness of breath, no cough, no hemoptysis. GASTROINTESTINAL: No diarrhea, no nausea, no vomiting, Normoactive bowel sounds. NEUROLOGICAL: No headaches, no weakness, no numbness. HEMATOLOGICAL: Denies any bleeding or petechiae. GENITOURINARY: Denies any burning micturition, frequency, or urgency. MUSCULOSKELETAL/RHEUMATOLOGICAL: Denies any joint pain, swelling, or any muscle pain. ENDOCRINE: Denies any polyuria or polydipsia. The rest of the 14-point review of systems is negative. 05/14/2017. Persistent low-grade fevers, T-max 99.8. Complains of generalized weakness. Evaluated by infectious disease and antibiotics therapy adjusted to ceftezolin with Unasyn and vancomycin discontinued. Good diet intake denies nausea, vomiting, or diarrhea. Denies chest pain, palpitations or increased shortness of breath. Blood sugars elevated. 05/15/2017 maintained on cefazolin, afebrile. ambulating in hallway, with walker , generalized weakness. Discussed subacute rehab and patient agreeable to. Consult initiated for PT/OT. Blood sugars running on the lower side today. Denies chest pain palpitations or increasing shortness of breath. Good diet intake. Denies abdominal pain, no nausea vomiting or diarrhea. 05/16/2017 ambulated in hallway on room air with O2 sat after ambulation 88%. Chest x-ray ,D-DImer ordered. Afected foot with abscess appearing on sole, Dr. Sen consulted. PT/OT consult in place with recommendations pending. Afebrile. Objective - Vital Signs Vital signs: Vital Signs Temp 97.9 F 05/16/17 10:44 Pulse 95 05/16/17 10:44 Resp 16 05/16/17 15:20 BP 113/61 05/16/17 10:44 Pulse Ox 93 L 05/16/17 10:44 Intake & Output 05/15/17 05/16/17 05/16/17 18:59 06:59 18:59 Intake Total 800 1600 800 Balance 800 1600 800 Weight 86.183 kg Intake: IV 800 Sodium Chloride 0.9% 1, 800 000 ml @ 100 mls/hr IV . Q10H [facility] Rx#:[id number] Intake, IV Titration 800 1600 Amount Sodium Chloride 0.9% 1, 800 1600 000 ml @ 100 mls/hr IV . Q10H [facility] Rx#:[id number] Other: Voiding Method Toilet Toilet Toilet Urinal Urinal Urinal # Voids 2 - Exam GENERAL: The patient is alert and oriented x3, not in any acute distress. Well developed, well nourished. HEENT: Pupils are round and equally reacting to light. EOMI. No scleral icterus. No conjunctival pallor. Normocephalic, atraumatic. No pharyngeal erythema. No thyromegaly. CARDIOVASCULAR: S1 and S2 present. No murmurs, rubs, or gallops. PULMONARY: Unlabored, Chest is clear to auscultation, no wheezing or crackles. ABDOMEN: Soft, nontender, nondistended, normoactive bowel sounds. No palpable organomegaly. MUSCULOSKELETAL: No joint swelling or deformity. EXTREMITIES: No cyanosis, clubbing, left leg redness and cellulitis with Frantz wrap dressing clean dry and intact. Bottom of foot with possible abscess appearance. NEUROLOGICAL: Gross neurological examination did not reveal any focal deficits. SKIN: No rashes. - Labs CBC & Chem 7: 05/15/17 06:46 05/15/17 06:46 Labs: Abnormal Lab Results - Last 24 Hours (Table) 05/15/17 05/15/17 05/16/17 Range/Units 17:13 20:20 07:04 D-Dimer (<0.60) mg/L FEU POC Glucose (mg/dL) 134 H 168 H 69 L (75-99) mg/dL 05/16/17 05/16/17 Range/Units 10:03 11:33 D-Dimer 1.62 H (<0.60) mg/L FEU POC Glucose (mg/dL) 161 H (75-99) mg/dL Assessment and Plan Assessment: -Left lower limb cellulitis with possible abscess on bottom of foot -Possibly of proctitis of diverticulitis -Type 2 diabetes mellitus, HGBA1C 10.3 -Chronic low back pain -Depression -Acute hypoxic respiratory failure, workup in progress Plan: Continue current medication regime ,monitoring. Antibiotics as per infectious disease. Chest x-ray and d-dimer ordered. If d-dimer elevated will proceed with chest CTA. PT/OT for potential subacute rehab-recommendations pending. Close monitoring of Accu-Cheks. Vascular surgery consulted regarding potential foot abscess. The impression and plan of care has been dictated as directed. : I performed a history and examination of this patient, discussed the same with the dictator. I agree with the dictator's note ,documented as a scribe. Any additional findings or plans will be noted.
--- NOTE | 2017-05-16 16:55 | PN ---
PROGRESS NOTE DATE OF SERVICE: 05/16/2017. REASON FOR FOLLOWUP: Right foot abscess and cellulitis. INTERVAL HISTORY: The patient is afebrile, has been breathing comfortably. Denies significant chest pain. No cough. No abdominal pain or any worsening pain in the right foot area. EXAMINATION: Blood pressure is 120/59 with a pulse of 103, temperature of 98.6. He is 93% on room air. General description is a middle-aged male lying in bed in no distress. RESPIRATORY SYSTEM: Unlabored breathing. Clear to auscultation anteriorly. HEART: S1, S2. Regular rate and rhythm. ABDOMEN: Soft, no tenderness. RIGHT FOOT: Currently the dorsum swelling and redness improved, however, did have a fluctuant mass on the plantar aspect likely an abscess. LABS: Hemoglobin is 10.8, white count 11.5. DIAGNOSTIC IMPRESSION AND PLAN: Patient with right foot abscess and cellulitis, now with more prominent abscess on the plantar aspect of the right foot. Vascular Surgery will be consulted for I and D of this area and deep cultures. Keep the patient on cefazolin at this point. Continue supportive care. MMODL / IJN: [id number] /
[2017-05-16 17:25] LABS: Glucose,Whole Blood 152 mg/dL (75-99)
--- NOTE | 2017-05-16 18:19 | XR ---
EXAMINATION TYPE: XR foot complete LT DATE OF EXAM: 05/16/2017 COMPARISON: 05/12/2017 HISTORY: Possible foreign body TECHNIQUE: 3 views FINDINGS: On the lateral view there is a 4 x 2 mm linear density near the skin surface at the plantar aspect of the forefoot. This is probably at the first MP joint. I see no fracture. There is vascular calcification. There is plantar and Achilles calcaneal spurring. There is soft tissue swelling of th e forefoot. IMPRESSION: Small foreign body at the plantar aspect of the first MP joint without change in position compared to last exam. There is soft tissue swelling. No fracture seen.
--- NOTE | 2017-05-16 18:32 | PCN ---
PROCEDURE NOTE PREOP DIAGNOSIS: Cellulitis versus abscess, left foot plantar aspect. PROCEDURE: I and D under local anesthesia. This patient was seen in his room. Left foot has marked tenderness and redness noted on the plantar and dorsum aspect of the foot. There is some skin color changes noted on the plantar aspect. 1% lidocaine infiltrate after foot was prepped with the ChloraPrep. Drapes applied in usual manner. 1% lidocaine infiltrated into the plantar aspect of the left foot and a small incision was made and deepened through skin, fat, and some fluid came out but no active pus was noted. Pressure was intact. We used hemostats to spread the incision. Wound culture was taken and the wound was irrigated with saline and dressing applied. Patient tolerated the procedure well. MMODL / IJN: [id number] /
--- NOTE | 2017-05-16 18:33 | CT ---
EXAMINATION TYPE: CT angio chest DATE OF EXAM: 05/16/2017 5:00 PM COMPARISON: NONE HISTORY: R/O PE. CT DLP: 417.1 mGycm Automated exposure control for dose reduction was used. CONTRAST: CTA scan of the thorax is performed with IV Contrast, patient injected with 65 mL of Omnipaque 300, p ulmonary embolism protocol. There are 3-D post processed images.. FINDINGS: There are bilateral pleural effusions. There is some patchy mild infiltrate and atelectasis at the keegan ng bases and more on the right side. Thoracic aorta is atheromatous. There is no evidence of dissection or aneurysm. There is no mediastinal adenopathy. There are no hilar masses. I see no filling defects in the pulmon jeffrey arteries. Heart size is normal. There is no pericardial effusion. I see no bony destructive proce ss. IMPRESSION: NO EVIDENCE OF PULMONARY EMBOLISM. PLEURAL EFFUSIONS WITH BILATERAL LOWER LOBE PNEUMONIA AND ATELECTA SIS. THIS IS WORSE ON THE RIGHT SIDE.
[2017-05-16] MEDS ORDERED: HYDROcodone/APAP 5-325MG 1 EACH TAB PO PRN (19:36)
[2017-05-16 20:35] LABS: Glucose,Whole Blood 177 mg/dL (75-99)
[2017-05-16] MEDS: DULoxetine HCL 30 MG CAPSULE.DR PO SCH (22:09)
[2017-05-16] MEDS: INSULIN DETEMIR 100 UNIT/ML 10 ML VIAL SQ SCH (22:10)
[2017-05-17] MEDS: SODIUM CHLORIDE 0.9% 1,000 ML IV SCH ×2 (00:31→04:39)
[2017-05-17] MEDS: ceFAZolin IN SWFI 2 GM/20 ML SYRINGE IVP SCH ×4 (00:31→23:56)
[2017-05-17] MEDS: INSULIN ASPART 100 UNIT/ML 1 ML 10 ML VIAL SQ SCH ×7 (07:27→21:17)
[2017-05-17] MEDS ORDERED: FUROSEMIDE 10 MG/ML 4 ML VIAL IV STA (07:45)
[2017-05-17 07:50] LABS: Glucose,Whole Blood 75 mg/dL (75-99)
--- NOTE | 2017-05-17 07:51 | P.PN ---
Subjective Patient was admitted for cellulitis of the left leg patient is found to have a foreign body Dr. Jonse was consulted. Patient is on Keflex patient is also was also treated for colitis and patient has desaturations does have bilateral pleural effusions rule out pulmonary embolism and will obtain echocardiogram BNP we'll give a dose of Lasix IV fluids will be discontinued. Patient is still having significant pain in the left leg and foot Constitutional: Denied any fatigue denied any fever. Cardio vascular: denied any chest pain, palpitations Gastrointestinal denied any nausea vomiting Pulmonary: Denied any shortness of breath cough Neurologic denied any new focal deficits Objective - Vital Signs Vital signs: Vital Signs Temp 98.8 F 05/16/17 23:00 Pulse 98 05/16/17 23:00 Resp 16 05/16/17 23:00 BP 147/77 05/16/17 23:00 Pulse Ox 94 L 05/16/17 23:00 Intake & Output 05/16/17 05/17/17 05/17/17 18:59 06:59 18:59 Intake Total 800 1040 Balance 800 1040 Intake: IV 800 Sodium Chloride 0.9% 1, 800 000 ml @ 100 mls/hr IV . Q10H [facility] Rx#:[id number] Oral 1040 Other: Voiding Method Toilet Toilet Urinal Urinal # Voids 2 - Exam GENERAL: The patient is alert and oriented x3, not in any acute distress. Well developed, well nourished. HEENT: Pupils are round and equally reacting to light. EOMI. No scleral icterus. No conjunctival pallor. Normocephalic, atraumatic. No pharyngeal erythema. No thyromegaly. CARDIOVASCULAR: S1 and S2 present. No murmurs, rubs, or gallops. PULMONARY: Unlabored, Chest is clear to auscultation, no wheezing or crackles. ABDOMEN: Soft, nontender, nondistended, normoactive bowel sounds. No palpable organomegaly. MUSCULOSKELETAL: No joint swelling or deformity. EXTREMITIES: No cyanosis, clubbing, left leg redness and cellulitis with Frantz wrap dressing clean dry and intact. Bottom of foot with possible abscess appearance. NEUROLOGICAL: Gross neurological examination did not reveal any focal deficits. SKIN: No rashes. - Labs CBC & Chem 7: 05/15/17 06:46 05/15/17 06:46 Labs: Abnormal Lab Results - Last 24 Hours (Table) 05/16/17 05/16/17 05/16/17 Range/Units 10:03 11:33 17:18 D-Dimer 1.62 H (<0.60) mg/L FEU POC Glucose (mg/dL) 161 H 152 H (75-99) mg/dL 05/16/17 Range/Units 20:31 D-Dimer (<0.60) mg/L FEU POC Glucose (mg/dL) 177 H (75-99) mg/dL Microbiology - Last 24 Hours (Table) 05/16/17 16:37 Gram Stain - Preliminary Foot - Left Wound Culture - Preliminary Assessment and Plan Plan: Assessment and Plan Assessment: -Left lower limb cellulitis with possible foreign body and vitamin the left foot , Dr. Sen is evaluating the patient -Possibly of proctitis of diverticulitis -Type 2 diabetes mellitus, HGBA1C 10.3 -Chronic low back pain -Depression -Acute hypoxic respiratory failure, patient hypoxemia secondary to bilateral pleural effusions IV fluids will be discontinued echocardiogram will be obtained patient will be started on Lasix Rule out pulmonary embolism Plan: Continue current medication regime ,monitoring. Antibiotics as per infectious disease. Chest x-ray and d-dimer ordered. If d-dimer elevated will proceed with chest CTA. PT/OT for potential subacute rehab-recommendations pending. Close monitoring of Accu-Cheks.
[2017-05-17] MEDS: MICONAZOLE NITRATE 2% CREAM 14 GM TUBE TOPICAL SCH ×2 (07:59→21:17)
[2017-05-17] MEDS: GABAPENTIN 300 MG CAP PO SCH ×3 (08:00→21:17)
[2017-05-17] MEDS: ASPIRIN 81 MG PO SCH (08:00)
[2017-05-17] MEDS: PIOGLITAZONE 30 MG TAB PO SCH (08:00)
[2017-05-17] MEDS: DULoxetine HCL 60 MG CAPSULE.DR PO SCH (08:01)
--- NOTE | 2017-05-17 08:45 | CONS ---
CONSULTATION This is a 61-year-old gentleman who has been admitted to [facility]. I was consulted by Infectious Disease to follow up for left foot marked cellulitis and tenderness. The patient had this for the last 5 days. Then he decided to come to the hospital. Patient has no history of trauma. Patient has a long-standing history of neuropathy and he has no feeling on his left foot. The patient also has been diagnosed with possible diverticulitis and patient is on IV antibiotic. MEDICAL HISTORY: History of diabetes, peripheral neuropathy. PHYSICAL EXAMINATION: Patient was seen in his room. Neck is supple, trachea central. Chest is clear to auscultation. Abdomen is soft. Femoral pulses are present. Patient has marked tenderness and redness noted to the dorsum distal aspect of the foot and also plantar aspect of the foot. There are some skin changes noted on the plantar aspect of foot with some fluctuation. Patient's foot is very tender on palpation. IMPRESSION: Cellulitis with possible abscess, possible foreign body. We will make a small incision and drainage to take some culture. MMODL / IJN: [id number] /
--- NOTE | 2017-05-17 10:32 | ECHOF ---
Referral Reason:Possible CHF MEASUREMENTS -------- HEIGHT: 165.1 cm WEIGHT: 86.2 kg BP: RVIDd: 2.3 cm (< 3.3) IVSd: 1.0 cm (0.6 - 1.1) LVIDd: 4.1 cm (3.9 - 5.3) LVPWd: 1.4 cm (0.6 - 1.1) IVSs: 1.6 cm LVIDs: 2.4 cm LVPWs: 1.4 cm LA Diam: 3.4 cm (2.7 - 3.8) Ao Diam: 2.7 cm (2.0 - 3.7) AV Cusp: 1.8 cm (1.5 - 2.6) LA Diam: 3.6 cm (2.7 - 3.8) MV EXCURSION: 17.007 mm (> 18.000) MV EF SLOPE: 68 mm/s (70 - 150) EPSS: 0.5 cm MV E Tristen: 0.56 m/s MV DecT: 249 ms MV A Tristen: 0.74 m/s MV E/A Ratio: 0.76 RAP: 5.00 mmHg RVSP: 10.09 mmHg FINDINGS -------- Sinus rhythm. This was a technically good study. LV size, wall thickness and systolic function are normal, with an EF greater than 55%. The right ventricle is normal in size. The left atrial size is normal. The right atrial size is normal. The aortic valve is trileaflet, and appears structurally normal. No aortic stenosis or regurgitation. Mild mitral regurgitation is present. Mild tricuspid regurgitation present. There is no evidence of pulmonary hypertension. The right v entricular systolic pressure, as measured by Doppler, is 10.09mmHg. There is no pulmonic regurgitation present. The aortic root size is normal. There is a trivial pericardial effusion present. CONCLUSIONS -------- 1. LV size, wall thickness and systolic function are normal, with an EF greater than 55%. 2. The aortic valve is trileaflet, and appears structurally normal. No aortic stenosis or regurgitati on. 3. Mild mitral regurgitation is present. 4. Mild tricuspid regurgitation present. 5. There is no evidence of pulmonary hypertension. 6. The right ventricular systolic pressure, as measured by Doppler, is 10.09mmHg. 7. There is no pulmonic regurgitation present. 8. The aortic root size is normal. 9. There is a trivial pericardial effusion present. SPECIAL INVESTIGATOR: Мария Abdullahi RDCS
[2017-05-17 11:29] LABS: Glucose,Whole Blood 135 mg/dL (75-99)
--- NOTE | 2017-05-17 16:48 | PN ---
PROGRESS NOTE DATE OF SERVICE: 05/17/2017. REASON FOR FOLLOWUP: Left foot abscess and cellulitis. INTERVAL HISTORY: The patient is afebrile. The patient did have a bedside incision of the left foot, some serous fluid. No significant redness was noted. The patient denies any worsening pain to the left foot area. Denies having any chest pain or shortness of breath or cough. No abdominal pain or any diarrhea. EXAMINATION: Blood pressure is 102/59 with a pulse of 94, temperature of 98.8. He is 92% on room air. General description is a middle-aged male lying in bed in no distress. RESPIRATORY SYSTEM: Unlabored breathing. Clear to auscultation anteriorly. HEART: S1, S2. Regular rate and rhythm. ABDOMEN: Soft, no tenderness. Left foot did have a blister on the plantar aspect: No drainage was noticed. LABS: White count of 11.5. Cultures obtained yesterday are currently pending. DIAGNOSTIC IMPRESSION AND PLAN: Patient with left foot abscess and cellulitis, status post bedside I and D. Plan at this time is to wait for the culture to finalize, keep the patient on cefazolin this point. Continue supportive care. MMODL / IJN: [id number] /
[2017-05-17 17:28] LABS: Glucose,Whole Blood 164 mg/dL (75-99)
[2017-05-17 19:55] LABS: Glucose,Whole Blood 156 mg/dL (75-99)
[2017-05-17] MEDS: DULoxetine HCL 30 MG CAPSULE.DR PO SCH (21:17)
[2017-05-17] MEDS: INSULIN DETEMIR 100 UNIT/ML 10 ML VIAL SQ SCH (21:18)
[2017-05-18 07:24] LABS: Glucose,Whole Blood 77 mg/dL (75-99)
[2017-05-18 07:36] LABS: MCHC 33.3 g/dL (31.0-37.0); Mean Platelet Volume 7.7; Platelet Count 315 k/uL (150-450); RBC 3.66 m/uL (4.30-5.90); WBC 11.2 k/uL (3.8-10.6)
[2017-05-18] MEDS: INSULIN ASPART 100 UNIT/ML 1 ML 10 ML VIAL SQ SCH ×7 (07:58→20:26)
[2017-05-18 08:00] LABS: Anion Gap 9 mmol/L; Blood Urea Nitrogen 11 mg/dL (9-20); Calcium 9.2 mg/dL (8.4-10.2); Carbon Dioxide 33 mmol/L (22-30); Chloride 96 mmol/L (98-107); Glucose 84 mg/dL (74-99); Sodium 138 mmol/L (137-145)
[2017-05-18] MEDS: ceFAZolin IN SWFI 2 GM/20 ML SYRINGE IVP SCH ×2 (08:04→17:53)
[2017-05-18] MEDS: ASPIRIN 81 MG PO SCH (08:05)
[2017-05-18] MEDS: PIOGLITAZONE 30 MG TAB PO SCH (08:05)
[2017-05-18] MEDS: DULoxetine HCL 60 MG CAPSULE.DR PO SCH (08:05)
[2017-05-18] MEDS: GABAPENTIN 300 MG CAP PO SCH ×3 (08:05→20:27)
[2017-05-18] MEDS: MICONAZOLE NITRATE 2% CREAM 14 GM TUBE TOPICAL SCH ×2 (08:06→20:27)
[2017-05-18 11:15] LABS: Glucose,Whole Blood 70 mg/dL (75-99)
--- NOTE | 2017-05-18 12:12 | XR ---
EXAMINATION TYPE: XR foot complete LT , 3 VIEWS DATE OF EXAM ORDERED: 05/18/2017 there is some soft tissue swelling over the dorsum of the foot. No os seous lesion is seen. HISTORY: foreign body. COMPARISON: Previous study dated 05/16/2017. FINDINGS: Tiny, 4.5 mm sliver of radiopaque material projects over the left first MTP joint, unchang ed from previous. IMPRESSION: TINY, FOREIGN BODY ADJACENT TO THE LEFT FIRST MTP JOINT, UNCHANGED FROM PREVIOUS.
--- NOTE | 2017-05-18 13:28 | PN ---
PROGRESS NOTE This is a 61-year-old gentleman. He came with marked cellulitis of the left foot, plantar dorsum aspect. Patient had an I&D, we took some cultures. We also ordered x-ray of the foot and found to have a 4.5 mm radiopaque material projecting over the left metatarsophalangeal joint. The culture report is pending. I have asked Orthopedic to look into this foreign body for removal. Discussed with Dr. Desir. MMODL / IJN: [id number] /
[2017-05-18 16:58] LABS: Glucose,Whole Blood 135 mg/dL (75-99)
--- NOTE | 2017-05-18 18:27 | PN ---
PROGRESS NOTE DATE OF SERVICE: 05/18/2017. INTERVAL HISTORY: This 61-year-old gentleman admitted with left foot cellulitis also had possibly a foreign body also in the joint. Infectious Disease and Vascular Surgery following the patient closely. Orthopedic evaluation in progress. No chest pain. No palpitations. No fever. EXAM: Alert and oriented times three. Pulse 99, blood pressure 130/72, respiration 18, temperature 98.2, pulse ox 98% on room air. HEENT: Conjunctivae normal. Neck: No jugular venous distention. Cardiovascular: S1, S2 muffled. Respiratory: Breath sounds diminished in the bases. No rhonchi and no crackles. Abdomen is soft, nontender. Legs: Status post the left leg wound present. Nervous system: No focal deficits. LAB STUDIES: WBC 11.1, hemoglobin 10. ASSESSMENT: 1. Left foot abscess and cellulitis with possible foreign body. 2. Possible diverticulitis. 3. Diabetes type 2. 4. Uncontrol in the outpatient setting. 5. Chronic low back pain, degenerative joint disease. 6. Depression. 7. Acute hypoxic respiratory failure with bilateral pleural effusion. 8. Increased WBC. RECOMMENDATIONS AND DISCUSSION: In this 61-year-old gentleman who presented with multiple complex medical issues , we will monitor the patient closely. Continue the symptomatic treatment, current broad- spectrum IV antibiotics. Cultures are growing no significant organisms so far. Otherwise continue to monitor. Prognosis guarded. Further recommendations to follow. MMODL / IJN: [id number] / MTDD
[2017-05-18 19:46] LABS: Glucose,Whole Blood 224 mg/dL (75-99)
[2017-05-18] MEDS: INSULIN DETEMIR 100 UNIT/ML 10 ML VIAL SQ SCH (20:26)
[2017-05-18] MEDS: DULoxetine HCL 30 MG CAPSULE.DR PO SCH (20:27)
--- NOTE | 2017-05-18 23:01 | PN ---
PROGRESS NOTE DATE OF SERVICE: 05/18/2017 REASON FOR FOLLOWUP: Left foot abscess and cellulitis. INTERVAL HISTORY: The patient is afebrile, has been breathing comfortably. Denies having any significant chest pain or cough. No abdominal pain or any worsening pain in the left foot area. EXAMINATION: Blood pressure 131/72 with a pulse of 99, temperature of 98.2. He is 92% on room air. General description is a middle-aged male, lying in bed in no distress. RESPIRATORY SYSTEM: Unlabored breathing. Clear to auscultation anteriorly. HEART: S1, S2. Regular rate and rhythm. ABDOMEN: Soft. No tenderness. Left foot swelling and redness improved on the plantar aspect, did have a blister that has been opened up. No purulence was expressed out. LABS: Hemoglobin is 11, white count of 11.2. Culture has been negative so far. DIAGNOSTIC IMPRESSION AND PLAN: Patient with left foot abscess and cellulitis with a foreign body for which the patient did have surgery at bedside. The patient to continue with cefazolin, hopefully finish therapy with oral antibiotics. Continue with supportive care. MMODL / IJN: [id number] /
[2017-05-19] MEDS: ceFAZolin IN SWFI 2 GM/20 ML SYRINGE IVP SCH ×4 (01:02→23:52)
[2017-05-19 06:59] LABS: Glucose,Whole Blood 105 mg/dL (75-99)
[2017-05-19 07:52] VITALS: RESP 18
[2017-05-19] MEDS: INSULIN ASPART 100 UNIT/ML 1 ML 10 ML VIAL SQ SCH ×7 (08:35→21:20)
[2017-05-19] MEDS: ASPIRIN 81 MG PO SCH (08:40)
[2017-05-19] MEDS: GABAPENTIN 300 MG CAP PO SCH ×3 (08:40→21:20)
[2017-05-19] MEDS: DULoxetine HCL 60 MG CAPSULE.DR PO SCH (08:40)
[2017-05-19] MEDS: PIOGLITAZONE 30 MG TAB PO SCH (08:40)
[2017-05-19] MEDS: MICONAZOLE NITRATE 2% CREAM 14 GM TUBE TOPICAL SCH ×2 (08:40→21:20)
--- NOTE | 2017-05-19 10:26 | P.CNOR ---
History of Present Illness - [facility] Consult date: 05/19/17 Requesting physician: Denton Sen History of present illness: 61-year-old patient who presented to [facility] on with complaint of left foot pain and cellulitis. He subsequently was admitted. He has a history of insulin-dependent diabetes and peripheral neuropathy. He was appropriately treated by infectious disease for his cellulitis. He was seen by vascular and underwent incision of a probable plantar sided abscess on 05/16/17. Orthopedic consultation was request regarding a radiopaque foreign body which was seen on radiographs. Overall his symptoms have significantly improved during his hospital course. Review of Systems Constitutional: Reports as per [facility] Past Medical History Past Medical History: Diabetes Mellitus Additional Past Medical History / Comment(s): back and neck pain History of Any Multi-Drug Resistant Organisms: None Reported Additional Past Surgical History / Comment(s): upper back cyst removed Past Anesthesia/Blood Transfusion Reactions: No Reported Reaction Past Psychological History: Depression Smoking Status: Never smoker Past Alcohol Use History: Rare Past Drug Use History: None Reported - Past Family History Mother Family Medical History: Cancer Father Family Medical History: Myocardial Infarction ([place]) Medications and Allergies Home Medications Medication Instructions Recorded Confirmed Type Aspirin 81 mg PO DAILY 05/08/17 05/12/17 History Cholecalciferol [Vitamin D3] 5,000 unit PO DAILY 05/08/17 05/12/17 History DULoxetine HCL [Cymbalta] 30 mg PO HS 05/08/17 05/12/17 History DULoxetine HCL [Cymbalta] 60 mg PO QAM 05/08/17 05/12/17 History Gabapentin [Neurontin] 300 mg PO TID 05/08/17 05/12/17 History Insulin Glargine,Hum.rec.anlog 22 unit SQ HS 05/08/17 05/12/17 History [Lantus Solostar] Magnesium Oxide [Mag-Ox] 400 mg PO BID 05/08/17 05/12/17 History Pioglitazone [Actos] 30 mg PO DAILY 05/08/17 05/12/17 History metFORMIN HCL 1,000 mg PO BID 05/08/17 05/12/17 History rOPINIRole HCL [Requip] 0.5 mg PO HS 05/08/17 05/12/17 History Cephalexin [Keflex] 500 mg PO Q6HR #40 cap 05/15/17 Rx Nystatin 100,000Unit/gm Cream 1 applic TOPICAL BID #30 gm 05/15/17 Rx [Mycostatin Cream] Allergies Allergy/AdvReac Type Severity Reaction Status Date / Time No Known Allergies Allergy Verified 05/12/17 22:39 Physical Examination Osteopathic Statement: *. No significant issues noted on an osteopathic structural exam other than those noted in the History and Physical/Consult. There appears to be some residual callus along the plantar aspect of the left foot. There is evidence for previous incision along the plantar aspect of his foot where he had his incision and drainage performed. He has diffuse decreased sensation about the foot. He is able to move his toes with no pain. There is no obvious erythema present on examination today. There is no obvious drainage present on examination today. He seems to have good perfusion of the toes. Results - Labs Labs: Abnormal Lab Results - Last 24 Hours (Table) 05/18/17 05/18/17 05/18/17 Range/Units 11:08 16:56 19:45 POC Glucose (mg/dL) 70 L 135 H 224 H (75-99) mg/dL 05/19/17 Range/Units 06:57 POC Glucose (mg/dL) 105 H (75-99) mg/dL Microbiology - Last 24 Hours (Table) 05/16/17 16:37 Gram Stain - Final Foot - Left Wound Culture - Final H & H 05/13/17 05/14/17 05/15/17 Range/Units 07:09 06:32 06:46 Hgb 11.7 L 11.0 L 10.8 L (13.0-17.5) gm/dL Hct 36.2 L 32.3 L 32.3 L (39.0-53.0) % 05/18/17 Range/Units 06:52 Hgb 11.0 L (13.0-17.5) gm/dL Hct 33.0 L (39.0-53.0) % Result Diagrams: 05/18/17 06:52 05/18/17 06:52 - Diagnostic results Ankle/Foot x-ray: report reviewed, image reviewed (There appears to be a tiny radiopaque foreign body very superficial plantar aspect area great toe MTP joint ) Assessment and Plan Assessment: 1. Resolving left foot cellulitis 2. Tiny radiopaque foreign body plantar aspect left foot seen on plain radiographs 3. History of insulin-dependent diabetes Plan: I discussed his resolving cellulitis with essentially no obvious erythema on exam today. I reviewed that tiny radiopaque foreign body which seems very superficial and reviewed attempted exploration of the area to see if I can visualize it and remove it. He was agreeable. I will proceed with that exploration of the superficial plantar aspect of the foot today. Time with Patient: Less than 30
--- NOTE | 2017-05-19 10:30 | P.OP ---
Date of Procedure: 05/19/17 Preoperative Diagnosis: Resolving left foot cellulitis with possible foreign body plantar aspect left foot Postoperative Diagnosis: Same Procedure(s) Performed: Exploration superficial soft tissues plantar aspect left foot with removal of callus tissue Anesthesia: none Surgeon: Khurram Greene Estimated Blood Loss (ml): 0 Pathology: none sent Condition: stable Disposition: PACU Indications for Procedure: 61-year-old patient seen with resolving cellulitis of the left foot and possible radiopaque foreign body. I recommended exploration of the superficial plantar aspect of the foot with possible removal of foreign body. Patient was agreeable and verbal consent was given. Description of Procedure: The plantar aspect of the left foot was prepped and draped in the normal sterile fashion. I removed some residual callus tissue in the area. I explored the subcutaneous tissue of the MTP joint great toe for any evidence of foreign body. I do not appreciate any obvious foreign body. I could not visualize any foreign body. After spending an abundant amount of time exploring the area no obvious foreign body could be identified. Sterile dressings were then applied and patient tolerated the procedure well. From my perspective no additional orthopedic intervention is indicated. If the patient would have persistent issues down the road I would recommend referral to a foot and ankle specialist.
[2017-05-19 11:39] LABS: Glucose,Whole Blood 113 mg/dL (75-99)
[2017-05-19 17:19] LABS: Glucose,Whole Blood 151 mg/dL (75-99)
--- NOTE | 2017-05-19 17:57 | XR ---
EXAMINATION TYPE: XR chest 1V portable DATE OF EXAM: 05/19/2017 COMPARISON: May 16, 1999 HISTORY: Shortness of breath TECHNIQUE: Single frontal view of the chest is obtained. FINDINGS: There is no focal air space opacity, pleural effusion, or pneumothorax seen. The cardiac silhouette size is within normal limits. The osseous structures are intact. Right hemidiaphragm is elevated, stable. IMPRESSION: No acute process.
--- NOTE | 2017-05-19 18:44 | PN ---
PROGRESS NOTE DATE OF SERVICE: 05/19/2017. INTERVAL HISTORY: This 61-year-old gentleman who was admitted with left foot abscess and cellulitis, suspected of foreign body which is not evident in Dr. Greene' surgery done today. No chest pain. No palpitations. No fever. Wound care and outpatient antibiotics recommended at this time. No chest pain. No palpitations. No shortness of breath. PHYSICAL EXAM: Alert and oriented x3. Pulse 98, blood pressure 139/82, respiration 18, temperature 97.2, pulse ox 94% on room air. HEENT: Conjunctivae normal. Oral mucosa moist. Neck is no jugular venous distention. No carotid bruit. No lymph node enlargement. Cardiovascular: S1, S2 muffled. Respirations: Breath sounds diminished at the bases. A few scattered rhonchi. No crackles. ABDOMEN: Soft. Legs: Left leg status post surgery. Nervous system: No focal deficits. LAB STUDIES: At this time, show WBC 11.9, hemoglobin 11 and Accu-Cheks noted. ASSESSMENT: 1. Left foot abscess and cellulitis status post debridement with no evidence of foreign body. 2. Possible diverticulitis. 3. Diabetes type 2 uncontrolled in the outpatient setting. 4. History of chronic low back pain, degenerative joint disease. 5. Depression. 6. Acute hypoxic respiratory failure with bilateral pleural effusion. 7. Increased WBC. RECOMMENDATIONS AND DISCUSSION: In this 61-year-old gentleman who presented with multiple complex medical issues, we will monitor the patient closely, continue the current medications and management and symptomatic treatment. A chest CTA was done 4 days ago which showed bilateral pleural effusion and atelectasis. Recommend to continue the current management and treatment for the symptomatic treatment. Continue the antibiotics. Wound care to be arranged as well as outpatient antibiotics if necessary. Otherwise, prognosis guarded and I would order repeat chest x-ray as well. Further recommendations to follow. MMODL / IJN: [id number] /
[2017-05-19 20:08] LABS: Glucose,Whole Blood 221 mg/dL (75-99)
[2017-05-19] MEDS: INSULIN DETEMIR 100 UNIT/ML 10 ML VIAL SQ SCH (21:20)
[2017-05-19] MEDS: DULoxetine HCL 30 MG CAPSULE.DR PO SCH (21:20)
[2017-05-19] MEDS: MAGNESIUM OXIDE 400 MG TAB PO SCH (21:30)
--- NOTE | 2017-05-20 06:51 | PN ---
PROGRESS NOTE DATE OF SERVICE: 05/19/2017 REASON FOR FOLLOWUP: Left foot abscess and cellulitis. INTERVAL HISTORY: The patient is afebrile. The patient did have further debridement of the callus on the left foot. No evidence of any foreign body. The surgery was done by Orthopedics. The patient denies any pain in the foot area. Denies any chest pain or shortness of breath or cough. No abdominal pain or diarrhea. PHYSICAL EXAMINATION: On examination, blood pressure 133/90 with a pulse of 98, temperature of 97.9. He is 94% on room air. General description is a middle-aged male lying in bed in no distress. RESPIRATORY SYSTEM: Unlabored breathing, clear to auscultation anteriorly. HEART: S1, S2. Regular rate and rhythm. ABDOMEN: Soft, no tenderness. Left foot wound over the plantar aspect no slough tissue. Wound culture has been negative. DIAGNOSTIC IMPRESSION AND PLAN: Patient with left foot cellulitis and abscess, infected callus, status post debridement. Culture has been negative for resistant pathogen. Overall improvement on cefazolin. Plan to finish therapy with p.o. Keflex 500 mg q.6 for 10 days. Script has been sent to the pharmacy. Local wound care with Aquacel Silver packing, offloading and follow up in the office in one week. MMODL / IJN: [id number] /
[2017-05-20 07:16] LABS: Glucose,Whole Blood 269 mg/dL (75-99)
[2017-05-20] MEDS: ceFAZolin IN SWFI 2 GM/20 ML SYRINGE IVP SCH (07:45)
[2017-05-20] MEDS: INSULIN ASPART 100 UNIT/ML 1 ML 10 ML VIAL SQ SCH ×4 (07:46→12:21)
[2017-05-20] MEDS: MAGNESIUM OXIDE 400 MG TAB PO SCH (07:47)
[2017-05-20] MEDS: PIOGLITAZONE 30 MG TAB PO SCH (07:48)
[2017-05-20] MEDS: GABAPENTIN 300 MG CAP PO SCH (07:48)
[2017-05-20] MEDS: MICONAZOLE NITRATE 2% CREAM 14 GM TUBE TOPICAL SCH (07:48)
[2017-05-20] MEDS: ASPIRIN 81 MG PO SCH (07:49)
[2017-05-20] MEDS: DULoxetine HCL 60 MG CAPSULE.DR PO SCH (07:49)
[2017-05-20 08:44] VITALS: BP 133/80; PULSE 91; TEMP 98.1
[2017-05-20] MEDS ORDERED: CHOLECALCIFEROL 1,000 UNIT TAB PO SCH (09:00)
[2017-05-20 11:22] LABS: Glucose,Whole Blood 242 mg/dL (75-99)
--- NOTE | 2017-05-20 15:12 | PN ---
PROGRESS NOTE DATE OF SERVICE: 05/20/2017. REASON FOR FOLLOWUP: Left foot cellulitis and wound. INTERVAL HISTORY: The patient is afebrile, breathing comfortably. Denies having any cough. No abdominal pain or any pain in left foot area. PHYSICAL EXAMINATION: Blood pressure 133/81, temperature 98.1. He is 91% on room air. General description is a middle aged male lying in bed in no distress. Respiratory system: Unlabored breathing. Clear to auscultation anteriorly. HEART: S1, S2. Regular rate and rhythm. Abdomen soft, no tenderness. The left foot overall swelling and redness is improved. No drainage. LABS: No new labs have been obtained today. Culture has been negative. DIAGNOSTIC IMPRESSION AND PLAN: Patient with left foot blister, infected ulcer with cellulitis. Culture remains to be negative for any resistant pathogen. Patient did overall improvement on the cefazolin with a plan to finish therapy with oral Keflex with close outpatient followup. MMODL / IJN: [id number] /
--- NOTE | 2017-05-21 10:50 | DS ---
DISCHARGE SUMMARY FINAL DIAGNOSES: 1. Left foot abscess cellulitis status post debridement with no evidence of foreign body. 2. Possible diverticulitis. 3. Diabetes type 2, uncontrolled in the outpatient setting. 4. History of chronic low back pain/degenerative joint disease. 5. Depression. 6. Acute hypoxic respiratory failure and bilateral pleural effusion. DISCHARGE DISPOSITION: The patient is being discharged in stable condition with guarded prognosis. HISTORY OF PRESENT ILLNESS: This 61-year-old gentleman with past medical history of multiple medical problems, admitted with left foot abscess and cellulitis. Foreign body could not be found despite extensive search by vascular surgery and orthopedic surgery. Patient improved significantly. On exam, vitals are stable. Cardiovascular is S1, S2. Abdomen is soft. Nervous system: No focal deficits. Examination of the right foot status post wound. The patient is being discharged in stable condition. DISCHARGE ADVICE AND MEDICATIONS: 1. Diet is cardiac diet. 2. Activity limited until followup. 3. Follow up with Dr. Kumar as advised. 4. Follow up with Dr. Sen and Dr. Knox as advised. MEDICATIONS ARE: Prior to admission include: 1. Tylenol 650 q.6h p.r.n. 2. Aspirin 81 mg daily. 3. Keflex 500 mg q.6h for 10 days. 4. Vitamin D3 500 mg p.o. daily. 5. Cymbalta 30 mg p.o. q.h.s. 6. Cymbalta 60 mg p.o. q.a.m. 7. Neurontin 300 mg t.i.d. 8. Lantus 22 subcu q.h.s. 9. Magnesium oxide 400 mg b.i.d. 10.Metformin 1000 mg b.i.d. 11.Nystatin one application topically. 12.Actos 30 mg p.o. daily. 13.Requip 0.5 mg q.h.s. 14. MMODL / IJN: [id number] /
== END 2017-05-20 13:45 | disposition home or self-care (01) | DRG 987 ==
LOC: EC 22:17 → 5MS5E 22:47
PROVIDERS: ADMIT Hospitalist; ATTEND Hospitalist
PROC: 0J9R0ZZ Drainage of Left Foot Subcutaneous Tissue and Fascia, Open Approach (ICD-10-PCS; principal; 2017-05-16)
PROC: 0HBNXZZ Excision of Left Foot Skin, External Approach (ICD-10-PCS; 2017-05-19)
DX: E11.621 Type 2 diabetes mellitus with foot ulcer (principal); J96.01 Acute respiratory failure with hypoxia; L97.529 Non-pressure chronic ulcer of other part of left foot with unspecified severity; E11.42 Type 2 diabetes mellitus with diabetic polyneuropathy; E87.1 Hypo-osmolality and hyponatremia; E11.65 Type 2 diabetes mellitus with hyperglycemia; B35.3 Tinea pedis; L03.116 Cellulitis of left lower limb; L02.612 Cutaneous abscess of left foot; E11.628 Type 2 diabetes mellitus with other skin complications; M54.2 Cervicalgia; F32.9 Major depressive disorder, single episode, unspecified; M54.5 Low back pain; S90.822A Blister (nonthermal), left foot, initial encounter; G89.29 Other chronic pain; Z79.4 Long term (current) use of insulin; Z79.82 Long term (current) use of aspirin; Z79.899 Other long term (current) drug therapy; Z82.49 Family history of ischemic heart disease and other diseases of the circulatory system
CPT/HCPCS: 71045; 71046; 71275; 80048; 80053; 81003; 83036; 83735; 83880; 85025; 85027; 85379; 87070; 87086; 87205; 93306; 94760; 99285

== ENCOUNTER → 2018-09-18 | Outpatient (CLI) | payer OTHER ==
[~2018-09-18] MED LIST: IODINE/POTASS IOD (LUGOLS) 8 ML BTL TOPICAL ONE
--- NOTE | 2018-09-20 13:59 | NM ---
EXAMINATION TYPE: NM DatScan Brain SPECT DATE OF EXAM: 09/18/2018 COMPARISON: NONE HISTORY: Tremors TECHNIQUE: 10 drops of Lugol's solution was administered 1 hour prior to injection as a thyroid bloc clifton agent. After the administration of 4.44 mCi I-123 Ioflupane DaTscan. Images obtained 3 hours p ost injection. SPECT images of the brain were acquired with axial and coronal reconstructions. FINDINGS: The striata shows a normal appearance, symmetric comma-shape uptake is noted. IMPRESSION: Normal PATRICA scan
== END | disposition home or self-care (01) ==
LOC: RADNMMAIN 11:07
PROVIDERS: ATTEND Psychiatry & Neurology Neurology
DX: G25.0 Essential tremor (principal)
CPT/HCPCS: 78607; A9584

== ENCOUNTER 2019-08-22 14:55 | Inpatient (IN) | payer OTHER ==
--- NOTE | 2019-08-22 15:09 | ED ---
General Adult HPI - General Chief complaint: Chest Pain Stated complaint: STEMI/Rule out COVID Time Seen by Provider: 08/22/19 15:07 Source: patient, EMS Mode of arrival: EMS Limitations: no limitations - History of Present Illness Initial comments: Patient presents the ED by ambulance from an outside hospital emergency department where he was initially evaluated. Patient had an EKG, labs and CT imaging done there. These results were all reviewed myself. Per outside hospital emergency department physician, the patient was noted to have inferior lead ST elevations on his initial EKG and his troponin was elevated. Patient's head CT was negative. Patient's CT angiogram chest was negative for pulmonary emboli, but did show a possible multilobar interstitial process per report. Patient reports to me that he has had diffuse chest pain and bilateral upper leg pain for the past 4 days or so. Patient also states that he fell twice today. Patient denies head injury or LOC/syncope. Patient denies sustaining any injury from his falls. Patient admits to currently having 7/10 chest pain. Patient also admits to having a cough for the past 2 days. Patient denies fever or chills, headache, focal neuro deficit, neck/arm/jaw/back pain, pleuritic pain, hemoptysis, dyspnea, palpitations, dizziness, abdominal pain, nausea/vomiting/diarrhea, urinary symptoms, leg swelling, or any other symptoms or complaints. Patient was given IV heparin, aspirin and nitroglycerin at the outside hospital. No Covid-19 test was performed at the outside hospital. - Related Data Home Medications Medication Instructions Recorded Confirmed Aspirin 81 mg PO DAILY 05/08/17 08/12/17 Cholecalciferol [Vitamin D3 (25 5,000 unit PO DAILY 05/08/17 08/12/17 Mcg = 1000 Iu)] DULoxetine HCL [Cymbalta] 30 mg PO HS 05/08/17 08/12/17 DULoxetine HCL [Cymbalta] 60 mg PO QAM 05/08/17 08/12/17 Gabapentin [Neurontin] 300 mg PO TID 05/08/17 08/12/17 Insulin Glargine,Hum.rec.anlog 22 unit SQ HS 05/08/17 08/12/17 [Lantus Solostar] Magnesium Oxide [Mag-Ox] 400 mg PO BID 05/08/17 08/12/17 Pioglitazone [Actos] 30 mg PO DAILY 05/08/17 08/12/17 metFORMIN HCL 1,000 mg PO BID 05/08/17 08/12/17 rOPINIRole HCL [Requip] 0.5 mg PO HS 05/08/17 08/12/17 Previous Rx's Medication Instructions Recorded Nystatin 100,000Unit/gm Cream 1 applic TOPICAL BID #30 gm 05/15/17 [Mycostatin Cream] Acetaminophen Tab [Tylenol] 650 mg PO Q6HR PRN tab 05/20/17 Allergies Allergy/AdvReac Type Severity Reaction Status Date / Time No Known Allergies Allergy Verified 08/12/17 14:25 Review of Systems ROS Statement: Those systems with pertinent positive or pertinent negative responses have been documented in the HPI. ROS Other: All systems not noted in ROS Statement are negative. Past Medical History Past Medical History: Diabetes Mellitus Additional Past Medical History / Comment(s): back and neck pain History of Any Multi-Drug Resistant Organisms: None Reported Additional Past Surgical History / Comment(s): upper back cyst removed Past Anesthesia/Blood Transfusion Reactions: No Reported Reaction Past Psychological History: Depression Smoking Status: Never smoker Past Alcohol Use History: Rare Past Drug Use History: None Reported - Past Family History Mother Family Medical History: Cancer Father Family Medical History: Myocardial Infarction ([place]) General Exam Limitations: no limitations General appearance: alert, in no apparent distress Head exam: Present: atraumatic, normocephalic Eye exam: Present: normal appearance, PERRL, EOMI ENT exam: Present: mucous membranes moist Neck exam: Present: normal inspection, other (Trachea is in midline). Absent: tenderness, meningismus Respiratory exam: Present: normal lung sounds bilaterally. Absent: respiratory distress, wheezes, rales, rhonchi, chest wall tenderness Cardiovascular Exam: Present: regular rate, normal rhythm, normal heart sounds, other (Normal radial pulses bilaterally) GI/Abdominal exam: Present: soft. Absent: distended, tenderness, guarding Extremities exam: Present: full ROM, other (Negative Homans sign bilaterally). Absent: tenderness, pedal edema, calf tenderness Back exam: Present: normal inspection. Absent: tenderness Neurological exam: Present: alert, oriented X3. Absent: motor sensory deficit Psychiatric exam: Present: normal affect, normal mood Skin exam: Present: warm, dry, intact, normal color Course Vital Signs 08/22/19 15:00 Temperature 97.9 F Pulse Rate 92 Respiratory 18 Rate Blood Pressure 116/83 O2 Sat by Pulse 99 Oximetry - Reevaluation(s) Reevaluation #1: 08/22/19 15:20 Case, H&P, test results from outside hospital, and pending ED workup were discussed with Dr. Romeo (cardiology). He recommends sending him a copy of the patient's outside hospital EKG and outside hospital lab results. He states that he will then call me back. 08/22/19 15:33 Dr. Romeo called me back after reviewing the patient's EKG. He states that he will be in to the ED shortly to see the patient. He recommends giving the patient a dose of atorvastatin 80 mg by mouth, as well as metoprolol 25 mg by mouth twice a day. He has no further recommendations at this time. 08/22/19 16:26 Dr. Romeo is currently in the ED. He states that the patient has Q waves on his EKG, and he does not feel that the patient is having an acute NM. He has also brought to my attention that although the patient's outside hospital ED note mentions that the patient's CT angiogram chest is negative for pulmonary emboli, the patient's CT report mentions subsegmental pulmonary emboli are present. Will attempt to have the patient's CT images read by our radiologist. He recommends heparin anticoagulation and medical management at this time. He does not feel that the patient needs to go to the [facility] at this time. He has no further recommendations at this time. 08/22/19 16:35 Case, H&P, test results, my discussions with Dr. Romeo as above and prehospital/ED management thus far were discussed with Dr. Robledo (hospitalist). He accepts hospital admission. He has no further recommendations at this time. 08/22/19 16:53 Patient remains alert and breathing comfortably with a normal room air oxygen saturation. Patient denies development of any new symptoms while in the ED. Patient is aware of his test results, and he agrees with hospital admission at this time. EKG Findings - EKG Comments: EKG Findings:: Normal sinus rhythm, no ectopy, ventricular rate of 87 bpm, normal MO and QRS intervals, QTc interval of 519 ms, normal axis, LVH, inferior ST elevations with lateral lead reciprocal changes Medical Decision Making - Medical Decision Making Patient has tested positive for Covid, and given his CT angiogram findings, patient was given IV antibiotics and was continued on IV heparin in the ED. Cardiology was consulted, and Dr. Romeo has seen the patient in the ED. He has recommended medical management only at this time. He does not feel that the patient needs to go to the [facility] at this time. Dr. Robledo has accepted hospital admission. - Lab Data Result diagrams: 08/22/19 15:36 08/22/19 15:36 Lab Results 08/22/19 08/22/19 08/22/19 Range/Units 15:20 15:36 15:36 WBC 7.1 (3.8-10.6) k/uL RBC 3.99 L (4.30-5.90) m/uL Hgb 12.1 L (13.0-17.5) gm/dL Hct 36.1 L (39.0-53.0) % MCV 90.4 (80.0-100.0) fL MCH 30.3 (25.0-35.0) pg MCHC 33.6 (31.0-37.0) g/dL RDW 13.0 (11.5-15.5) % Plt Count 361 (150-450) k/uL Neutrophils % 74 % Lymphocytes % 12 % Monocytes % 10 % Eosinophils % 1 % Basophils % 0 % Neutrophils # 5.2 (1.3-7.7) k/uL Lymphocytes # 0.9 L (1.0-4.8) k/uL Monocytes # 0.7 (0-1.0) k/uL Eosinophils # 0.1 (0-0.7) k/uL Basophils # 0.0 (0-0.2) k/uL PT 11.9 (9.0-12.0) sec INR 1.2 H (<1.2) APTT 105.1 H* (22.0-30.0) sec Sodium (137-145) mmol/L Potassium (3.5-5.1) mmol/L Chloride (98-107) mmol/L Carbon Dioxide (22-30) mmol/L Anion Gap mmol/L BUN (9-20) mg/dL Creatinine (0.66-1.25) mg/dL Est GFR (CKD-EPI)AfAm (>60 ml/min/1.73 sqM) Est GFR (CKD-EPI)NonAf (>60 ml/min/1.73 sqM) Glucose (74-99) mg/dL Calcium (8.4-10.2) mg/dL Magnesium (1.6-2.3) mg/dL Total Bilirubin (0.2-1.3) mg/dL AST (17-59) U/L ALT (4-49) U/L Alkaline Phosphatase (38-126) U/L Troponin I (0.000-0.034) ng/mL NT-Pro-B Natriuret Pep pg/mL Total Protein (6.3-8.2) g/dL Albumin (3.5-5.0) g/dL Coronavirus (PCR) Detected A (Not Detectd) 08/22/19 08/22/19 08/22/19 Range/Units 15:36 15:36 15:36 WBC (3.8-10.6) k/uL RBC (4.30-5.90) m/uL Hgb (13.0-17.5) gm/dL Hct (39.0-53.0) % MCV (80.0-100.0) fL MCH (25.0-35.0) pg MCHC (31.0-37.0) g/dL RDW (11.5-15.5) % Plt Count (150-450) k/uL Neutrophils % % Lymphocytes % % Monocytes % % Eosinophils % % Basophils % % Neutrophils # (1.3-7.7) k/uL Lymphocytes # (1.0-4.8) k/uL Monocytes # (0-1.0) k/uL Eosinophils # (0-0.7) k/uL Basophils # (0-0.2) k/uL PT (9.0-12.0) sec INR (<1.2) APTT (22.0-30.0) sec Sodium 134 L (137-145) mmol/L Potassium 3.3 L (3.5-5.1) mmol/L Chloride 100 (98-107) mmol/L Carbon Dioxide 23 (22-30) mmol/L Anion Gap 11 mmol/L BUN 24 H (9-20) mg/dL Creatinine 0.87 (0.66-1.25) mg/dL Est GFR (CKD-EPI)AfAm >90 (>60 ml/min/1.73 sqM) Est GFR (CKD-EPI)NonAf >90 (>60 ml/min/1.73 sqM) Glucose 180 H (74-99) mg/dL Calcium 7.5 L (8.4-10.2) mg/dL Magnesium 1.2 L (1.6-2.3) mg/dL Total Bilirubin 0.6 (0.2-1.3) mg/dL AST 101 H (17-59) U/L ALT 22 (4-49) U/L Alkaline Phosphatase 84 (38-126) U/L Troponin I 15.200 H* (0.000-0.034) ng/mL NT-Pro-B Natriuret Pep 1830 pg/mL Total Protein 5.5 L (6.3-8.2) g/dL Albumin 2.6 L (3.5-5.0) g/dL Coronavirus (PCR) (Not Detectd) Critical Care Time Critical Care Time: Yes (Elevated troponin, pneumonia, Covid-19) Total Critical Care Time: 60 Disposition Clinical Impression: Elevated troponin, Chest pain, COVID-19 Narrative: Suspected inferior STEMI Disposition: ADMITTED IP TO THIS [facility] Condition: Stable Is patient prescribed a controlled substance at d/c from ED?: No Referrals: Nonstaff,Physician [Primary Care Provider] - 1-2 days Time of Disposition: 16:42
[2019-08-22] MEDS ORDERED: HEPARIN SOD,PORK IN 0.45% NACL 25,000 UNIT in 0.45% NACL 1 250ML.BAG IV SCH (15:15)
[2019-08-22] MEDS ORDERED: ATORVASTATIN 80 MG TAB PO STA (15:34)
[2019-08-22] MEDS ORDERED: METOPROLOL TARTRATE 25 MG TAB PO STA (15:47)
[2019-08-22 15:48] LABS: Basophils % (A) 0 %; Eosinophils # (A) 0.1 k/uL (0-0.7); Eosinophils % (A) 1 %; HCT 36.1 % (39.0-53.0); HGB 12.1 gm/dL (13.0-17.5); Lymphocytes # (A) 0.9 k/uL (1.0-4.8); Lymphocytes % (A) 12 %; MCH 30.3 pg (25.0-35.0); MCHC 33.6 g/dL (31.0-37.0); MCV 90.4 fL (80.0-100.0); Mean Platelet Volume 7.8; Monocytes # (A) 0.7 k/uL (0-1.0); Monocytes % (A) 10 %; Neutrophils # (A) 5.2 k/uL (1.3-7.7); Neutrophils % (A) 74 %; Platelet Count 361 k/uL (150-450); RBC 3.99 m/uL (4.30-5.90); WBC 7.1 k/uL (3.8-10.6)
[2019-08-22 16:05] LABS: ALT 22 U/L (4-49); AST 101 U/L (17-59); African American GFR (CKD) >90 (>60 ml/min/1.73 sqM); Albumin 2.6 g/dL (3.5-5.0); Alkaline Phosphatase 84 U/L (38-126); Anion Gap 11 mmol/L; Blood Urea Nitrogen 24 mg/dL (9-20); Calcium 7.5 mg/dL (8.4-10.2); Carbon Dioxide 23 mmol/L (22-30); Chloride 100 mmol/L (98-107); Glucose 180 mg/dL (74-99); Magnesium 1.2 mg/dL (1.6-2.3); Non-African American GFR(CKD) >90 (>60 ml/min/1.73 sqM); Potassium 3.3 mmol/L (3.5-5.1); Sodium 134 mmol/L (137-145); Total Bilirubin 0.6 mg/dL (0.2-1.3); Total Protein 5.5 g/dL (6.3-8.2)
[2019-08-22 16:15] LABS: INR 1.2 (<1.2); Prothrombin Time 11.9 sec (9.0-12.0)
[2019-08-22 16:19] LABS: Partial Thromboplastin Time 105.1 sec (22.0-30.0)
[2019-08-22] MEDS ORDERED: AZITHROMYCIN 500 MG in SODIUM CHLORIDE 0.9% 250 ML IVPB STA (16:37)
--- NOTE | 2019-08-22 16:59 | P.CRDCN ---
History of Present Illness History of present illness: This is Dr. Romeo dictating a consult on this patient The patient was interviewed and examined by me IMPRESSION / ASSESSMENT: Acute myocardial injury with ST elevation in the inferior leads with Q waves Martha R waves with ST depression and T-wave inversion in V1 His symptoms of discomfort began earlier this week and is been going on for at least 3 days Covid positive with bilateral pneumonitis Question of pulmonary embolism. The computed tomography scan will be reevaluated by radiology here PLAN: Continue IV heparin Continue low-dose beta blockers Continue aspirin Continue statins Avoid nitroglycerin This patient is not being taken to the [facility] at this time is being treated medically. Discussed with ER attending Dr. Warren informed HPI 64-year-old male patient who was transferred from [facility] I spoke to the physician there who stated that the patient initially came in with a fall. The EKG showed new ST elevations in the inferior leads as compared to his ECG from March 2019 The twelve-lead EKG showed Q waves in the inferior leads with ST elevation with ST depression with poor R waves in V1 as well as ST depression in the lateral leads Upon questioning the patient did complain of chest discomfort When he arrived here he was complaining of chest discomfort. When I asked him where the discomfort was he pointed to the lower half of the belly. S pecifically I pointed to the mid chest right-sided chest left-sided chest and shoulders and he did not have discomfort there he did not have discomfort in the epigastric region he pointed to the lower half of the abdomen His computed tomography scan shows bilateral pneumonitis and there is a question of pulmonary embolism. One report states that the pulmonary emboli and the other report states that an independent review was performed and no pulmonary was was noted This is being clarified and the disc is being sent to radiology here by the ER physician The patient is already on IV heparin. His blood pressure did drop here upon giving nitroglycerin and oral beta blockers Patient looks stable. He denied any fever or chills He is covid positive The computed tomography scan of the abdomen showed thickening of the wall of the rectum and the bladder ROS: No fever chills or rigors, no cough, phlegm or expectoration, no nausea, vomiting or diarrhea, he points to his abdomen when he states he is having discomfort no hematuria, dysuria, no musculoskeletal complaints, no strokes or seizures, no skin lesions. EXAMINATION: Initially his blood pressure was 120s. 80 mmHg after sublingual nitroglycerin Heart rates are normal No arrhythmias Afebrile 97.9F initial blood pressure was 116/83 mmHg 99% O2 sat on room air REVIEW OF LABS, ECG & MEDICAL DATA Hemoglobin 12, white count 7.1, lymphocytes 0.9, creatinine 0.87 potassium 3.3 sodium 134 Troponin 15 NT-pro-BNP 1830 AST 101 Past Medical History Past Medical History: Diabetes Mellitus Additional Past Medical History / Comment(s): back and neck pain History of Any Multi-Drug Resistant Organisms: None Reported Additional Past Surgical History / Comment(s): upper back cyst removed Past Anesthesia/Blood Transfusion Reactions: No Reported Reaction Past Psychological History: Depression Smoking Status: Never smoker Past Alcohol Use History: Rare Past Drug Use History: None Reported - Past Family History Mother Family Medical History: Cancer Father Family Medical History: Myocardial Infarction ([place]) Medications and Allergies Home Medications Medication Instructions Recorded Confirmed Type Aspirin 81 mg PO DAILY 05/08/17 08/12/17 History Cholecalciferol [Vitamin D3 (25 5,000 unit PO DAILY 05/08/17 08/12/17 History Mcg = 1000 Iu)] DULoxetine HCL [Cymbalta] 30 mg PO HS 05/08/17 08/12/17 History DULoxetine HCL [Cymbalta] 60 mg PO QAM 05/08/17 08/12/17 History Gabapentin [Neurontin] 300 mg PO TID 05/08/17 08/12/17 History Insulin Glargine,Hum.rec.anlog 22 unit SQ HS 05/08/17 08/12/17 History [Lantus Solostar] Magnesium Oxide [Mag-Ox] 400 mg PO BID 05/08/17 08/12/17 History Pioglitazone [Actos] 30 mg PO DAILY 05/08/17 08/12/17 History metFORMIN HCL 1,000 mg PO BID 05/08/17 08/12/17 History rOPINIRole HCL [Requip] 0.5 mg PO HS 05/08/17 08/12/17 History Nystatin 100,000Unit/gm Cream 1 applic TOPICAL BID #30 gm 05/15/17 08/12/17 Rx [Mycostatin Cream] Acetaminophen Tab [Tylenol] 650 mg PO Q6HR PRN tab 05/20/17 08/12/17 Rx Allergies Allergy/AdvReac Type Severity Reaction Status Date / Time No Known Allergies Allergy Verified 08/12/17 14:25 Physical Exam Vitals: Vital Signs Temp Pulse Resp BP Pulse Ox 08/22/19 15:00 97.9 F 92 18 116/83 99 Intake and Output 08/22/19 08/22/19 08/22/19 06:59 14:59 22:59 Other: Weight 74.843 kg Results 08/22/19 15:36 08/22/19 15:36 Cardiac Enzymes 08/22/19 08/22/19 Range/Units 15:36 15:36 AST 101 H (17-59) U/L Troponin I 15.200 H* (0.000-0.034) ng/mL Coagulation 08/22/19 Range/Units 15:36 PT 11.9 (9.0-12.0) sec APTT 105.1 H* (22.0-30.0) sec CBC 08/22/19 Range/Units 15:36 WBC 7.1 (3.8-10.6) k/uL RBC 3.99 L (4.30-5.90) m/uL Hgb 12.1 L (13.0-17.5) gm/dL Hct 36.1 L (39.0-53.0) % Plt Count 361 (150-450) k/uL Comprehensive Metabolic Panel 08/22/19 Range/Units 15:36 Sodium 134 L (137-145) mmol/L Potassium 3.3 L (3.5-5.1) mmol/L Chloride 100 (98-107) mmol/L Carbon Dioxide 23 (22-30) mmol/L BUN 24 H (9-20) mg/dL Creatinine 0.87 (0.66-1.25) mg/dL Glucose 180 H (74-99) mg/dL Calcium 7.5 L (8.4-10.2) mg/dL AST 101 H (17-59) U/L ALT 22 (4-49) U/L Alkaline Phosphatase 84 (38-126) U/L Total Protein 5.5 L (6.3-8.2) g/dL Albumin 2.6 L (3.5-5.0) g/dL Current Medications Generic Name Dose Route Start Last Admin Trade Name Freq PRN Reason Stop Dose Admin Heparin Sodium/Sodium Chloride 250 mls @ 8.981 mls/hr 08/22/19 15:15 08/22/19 15:39 25,000 unit/ Sodium Chloride IV 12 units/kg/hr .Q24H ROXI 8.981 mls/hr Administration Protocol 12 UNITS/KG/HR Azithromycin 500 mg/ Sodium 250 mls @ 250 mls/hr 08/22/19 16:37 Chloride IVPB 08/22/19 17:36 ONCE STA Ceftriaxone Sodium 1 gm/ 50 mls @ 100 mls/hr 08/22/19 16:38 Sodium Chloride IVPB 08/22/19 17:07 ONCE STA Sodium Chloride 1,000 mls @ 80 mls/hr 08/22/19 16:45 Saline 0.9% IV .[id number] ROXI Metoprolol Tartrate 25 mg 08/22/19 21:00 Lopressor PO BID ROXI Intake and Output 08/22/19 08/22/19 08/22/19 06:59 14:59 22:59 Other: Weight 74.843 kg Patient Weight 08/23/19 06:59 Weight 74.843 kg 08/22/19 15:36 08/22/19 15:36
[2019-08-22] MEDS: SODIUM CHLORIDE 0.9% 1,000 ML IV SCH (17:09)
[2019-08-22 17:10] LABS: INR 1.1 (<1.2); Partial Thromboplastin Time 39.4 sec (22.0-30.0); Prothrombin Time 11.3 sec (9.0-12.0)
[2019-08-22] MEDS ORDERED: NALOXONE 0.4 MG/ML 1 ML VIAL IV PRN (17:46)
[2019-08-22] MEDS ORDERED: ACETAMINOPHEN TAB 325 MG TAB PO PRN (17:46)
[2019-08-22] MEDS ORDERED: MORPHINE SULFATE 4 MG/ML SYRINGE IV PRN (17:46)
[2019-08-22] MEDS ORDERED: MORPHINE SULFATE 2 MG/ML SYRINGE IV PRN (17:48)
[2019-08-22] MEDS ORDERED: Potassium Replacement Protocol 1 EACH MISC MISCELLANE PRN (18:45)
--- NOTE | 2019-08-22 18:48 | P.HPIM ---
History of Present Illness H&P Date: 08/22/19 Chief Complaint: Chest pain 63-year-old male with PMH of diabetes mellitus presents the ED as a transfer from [facility] for chest pain. Patient reports chest pain that started on Saturday as he was changing the litter box. He described his chest pain is substernal, 9 out of 10 in severity, stabbing in nature. His chest pain progressed and continued to get worse into this morning which prompted the patient to go to the ED. Patient also reports a dry cough over the past 2 weeks. He reports bilateral lower extremity pain just above the knees and myalgias over the past 2 weeks. Patient states that he fell twice today. Patient states that he was sitting on his worker and was unsure of the events that led to his fall. He states that he may have lost consciousness. Patient complains of intermittent lower extremity edema. The chest pain was also as sociated with nausea, dizziness and some shortness of breath. He denies any headache, vomiting, fever or chills, palpitations come and changes in urination or bowel habits. No changes in appetite or weight. He denies any numbness/weakness/tingling of the extremities. Patient reports living by [facility]. He does not smoke cigarettes. CTA chest was performed at [place] which showed possible subsegmental PE and showed possible multilobar interstitial process. EKG did show some Q waves. Coronavirus testing was positive. Patient was evaluated by cardiology and recommended heparin drip, aspirin, Lipitor and beta hal. Patient is admitted for chest pain, ST elevation AL, rule out PE, treatment for coronavirus and pneumonia. Review of Systems Pertinent positives and negatives as discussed in HPI, a complete review of systems was performed and all other systems are negative. Past Medical History Past Medical History: Diabetes Mellitus Additional Past Medical History / Comment(s): back and neck pain History of Any Multi-Drug Resistant Organisms: None Reported Additional Past Surgical History / Comment(s): upper back cyst removed Past Anesthesia/Blood Transfusion Reactions: No Reported Reaction Past Psychological History: Depression Smoking Status: Never smoker Past Alcohol Use History: Rare Past Drug Use History: None Reported - Past Family History Mother Family Medical History: Cancer Father Family Medical History: Myocardial Infarction ([place]) Medications and Allergies Home Medications Medication Instructions Recorded Confirmed Type DULoxetine HCL [Cymbalta] 60 mg PO QAM 05/08/17 08/12/17 History Gabapentin [Neurontin] 300 mg PO TID 05/08/17 08/12/17 History Magnesium Oxide [Mag-Ox] 400 mg PO BID 05/08/17 08/12/17 History metFORMIN HCL 1,000 mg PO BID 05/08/17 08/12/17 History rOPINIRole HCL [Requip] 0.5 mg PO HS 05/08/17 08/12/17 History Alogliptin Benzoate [Alogliptin] 12.5 mg PO DAILY 08/22/19 08/22/19 History Aspirin EC [Ecotrin Low Dose] 81 mg PO DAILY 08/22/19 08/22/19 History Atropine Ophth Soln 1% 5Ml [Isopto 1 drops LEFT EYE BID 08/22/19 08/22/19 History Atropine 1% 5Ml] Brinzolamide/Brimonidine Tart 1 drop RIGHT EYE BID 08/22/19 08/22/19 History [Simbrinza 1%-0.2% Eye Drops] Cholecalciferol (Vitamin D3) 2,000 unit PO DAILY 08/22/19 08/22/19 History [Vitamin D3] Insulin Glargine,Hum.rec.anlog 60 unit SQ DAILY 08/22/19 08/22/19 History [Basaglar Kwikpen U-100] Naproxen 500 mg PO BID PRN 08/22/19 08/22/19 History Travoprost 1 drop BOTH EYES HS 08/22/19 08/22/19 History glipiZIDE [Glucotrol] 10 mg PO DAILY 08/22/19 08/22/19 History Allergies Allergy/AdvReac Type Severity Reaction Status Date / Time No Known Allergies Allergy Verified 08/12/17 14:25 Physical Exam Vitals: Vital Signs Temp Pulse Resp BP Pulse Ox 08/22/19 17:21 77 18 96/57 98 08/22/19 15:00 97.9 F 92 18 116/83 99 Intake and Output 08/22/19 08/22/19 08/22/19 06:59 14:59 22:59 Other: Weight 74.843 kg General: [non toxic], [no distress], [appears at stated age] Derm: [warm], [dry] Head: [atraumatic], [normocephalic], [symmetric] Eyes: [EOMI], [no lid lag], [anicteric sclera] Mouth: [no lip lesion], [mucus membranes moist] Cardiovascular: [S1S2 reg], [no murmur], [positive DP pulse bilateral], Lungs: [Decreased breath sounds bilateral], [no rhonchi, no rales] , [no accessory muscle use] Abdominal: [soft], [ nontender to palpation], [no guarding], [no appreciable organomegaly] Ext: [no gross muscle atrophy], [no edema], [no contractures] Neuro: [ CN II-XI grossly intact], [no focal neuro deficits] Psych: [Alert], [oriented], [appropriate affect] Results CBC & Chem 7: 08/22/19 15:36 08/22/19 15:36 Labs: Abnormal Lab Results - Last 24 Hours (Table) 08/22/19 08/22/19 08/22/19 Range/Units 15:20 15:36 15:36 RBC 3.99 L (4.30-5.90) m/uL Hgb 12.1 L (13.0-17.5) gm/dL Hct 36.1 L (39.0-53.0) % Lymphocytes # 0.9 L (1.0-4.8) k/uL INR 1.2 H (<1.2) APTT 105.1 H* (22.0-30.0) sec Sodium (137-145) mmol/L Potassium (3.5-5.1) mmol/L BUN (9-20) mg/dL Glucose (74-99) mg/dL Calcium (8.4-10.2) mg/dL Magnesium (1.6-2.3) mg/dL AST (17-59) U/L Troponin I (0.000-0.034) ng/mL Total Protein (6.3-8.2) g/dL Albumin (3.5-5.0) g/dL Coronavirus (PCR) Detected A (Not Detectd) 08/22/19 08/22/19 08/22/19 Range/Units 15:36 15:36 16:30 RBC (4.30-5.90) m/uL Hgb (13.0-17.5) gm/dL Hct (39.0-53.0) % Lymphocytes # (1.0-4.8) k/uL INR (<1.2) APTT 39.4 H (22.0-30.0) sec Sodium 134 L (137-145) mmol/L Potassium 3.3 L (3.5-5.1) mmol/L BUN 24 H (9-20) mg/dL Glucose 180 H (74-99) mg/dL Calcium 7.5 L (8.4-10.2) mg/dL Magnesium 1.2 L (1.6-2.3) mg/dL AST 101 H (17-59) U/L Troponin I 15.200 H* (0.000-0.034) ng/mL Total Protein 5.5 L (6.3-8.2) g/dL Albumin 2.6 L (3.5-5.0) g/dL Coronavirus (PCR) (Not Detectd) Assessment and Plan Assessment: ST elevation [place] COVID pneumonia Bilateral lower extremity pain Hypokalemia Diabetes mellitus with hyperglycemia Troponin was 15.[address] elevation with Q waves. Patient was evaluated by cardiology in the ED. Plans for medical treatment. Plans: Continue heparin drip. Continue aspirin. Continue Lipitor. Continue metoprolol. Telemetry monitoring. Follow-up echocardiogram. Follow cardiology consultation. Coronavirus testing positive. Plans: O2 per NC to maintain O2 saturation greater than 92%. Will check pro-calcitonin prior to continuation of antibiotics. Tylenol as needed for fever. Tenderness to palpation of the quadriceps. Plans: Follow creatine kinase. Continue normal saline at 80 mL/h. Pain control with Tylenol, morphine as needed. Restart home medication of gabapentin and Cymbalta. Potassium 3.3. Plans: Replacement protocol. Repeat BMP tomorrow morning. [id number] glucose 180. Plans: Insulin sliding scale. Regular Accu-Cheks. Hypoglycemic precautions. DVT prophylaxis: [Heparin drip] Discussed with: [Patient] Anticipated discharge: [2-3 days] Anticipated discharge place: [Home] A total of [45] minutes was spent on the care of this complex patient more than 50% of the time was spent in counseling and care coordination. Patient names his sister Pat decision maker if he can't make decisions for himself. Patient would like to be full code.
[2019-08-22 18:58] LABS: Glucose,Whole Blood 183 mg/dL (75-99)
[2019-08-22] MEDS ORDERED: SODIUM CHLORIDE 0.9% 500 ML 500 ML IV ONE (20:02)
[2019-08-22 20:23] LABS: Glucose,Whole Blood 245 mg/dL (75-99)
[2019-08-22] MEDS: MAGNESIUM SULFATE-D5W PMX 1 GM in DEXTROSE/WATER 1 100ML.BAG IVPB SCH ×3 (20:27→22:57)
[2019-08-22] MEDS ORDERED: HEPARIN SODIUM,PORCINE 10,000 UNIT/ML 1 ML VIAL IV ONE (20:49)
[2019-08-22] MEDS ORDERED: HEPARIN SODIUM,PORCINE 5,000 UNIT/ML 1 ML VIAL IV PRN (20:49)
[2019-08-22] MEDS ORDERED: POTASSIUM CHLORIDE ER 20 MEQ TAB.ER PO STA (21:08)
[2019-08-22] MEDS: METOPROLOL TARTRATE 25 MG TAB PO SCH (21:29)
[2019-08-22 21:32] LABS: INR 1.1 (<1.2); Partial Thromboplastin Time 28.6 sec (22.0-30.0); Prothrombin Time 11.3 sec (9.0-12.0)
[2019-08-22] MEDS: DULoxetine HCL 30 MG CAPSULE.DR PO SCH (21:35)
[2019-08-22] MEDS: GABAPENTIN 300 MG CAP PO SCH (21:35)
[2019-08-22] MEDS: INSULIN ASPART (NovoLOG) 100 UNIT/ML VIAL SQ SCH (21:35)
[2019-08-22] MEDS: ZINC SULFATE 220 MG CAP PO SCH (21:35)
--- NOTE | 2019-08-22 21:42 | P.PN ---
Progress Note - Text Progress Note Date: 08/22/19 Notified by the RN regarding the patient's hypotension and on-going chest pain. The patient was seen and evaluated at the bedside at 2100. He reports continued epigastric and hypogastric abdominal pain, sharp in nature, nonradiating, with no alleviating or exacerbating features. The patient's EKGs reviewed. The CT chest with contrast from [place] also reviewed, showing pulmonary emboli. The case discussed in detail with Dr. Romeo. He noted that the patient is not a candidate for cardiac catheterization, and will be undergoing continued medical management. He recommended IV fluids if patient continues to be hypertensive. Advised to hold off on further Nitrates or Beta-blockers. Will switch the patient to high intensity heparin infusion. The patient's blood pressure did improve to 110/61 following 500 mL bolus of normal saline. He continues to saturate 98% on room air with pulse of 80. If the patient's clinical condition changes, will transfer him to MICU.
[2019-08-22] MEDS: BRIMONIDINE TARTRATE 0.2% DROPS 5 ML BTL RIGHT EYE SCH (21:45)
[2019-08-22] MEDS: ATROPINE OPHTH SOLN 1% 5ML BTL LEFT EYE SCH (21:45)
[2019-08-22] MEDS: DORZOLAMIDE HCL 2% DROPS 10 ML BTL RIGHT EYE SCH (21:45)
[2019-08-22] MEDS: LATANOPROST 0.005% OPHTH DROPS 2.5 ML BTL BOTH EYES SCH (21:45)
[2019-08-22] MEDS: HEPARIN SOD,PORK IN 0.45% NACL 25,000 UNIT in 0.45% NACL 1 250ML.BAG IV SCH (21:46)
[2019-08-23 04:13] LABS: ALT 25 U/L (4-49); AST 121 U/L (17-59); African American GFR (CKD) >90 (>60 ml/min/1.73 sqM); Albumin 2.6 g/dL (3.5-5.0); Alkaline Phosphatase 88 U/L (38-126); Anion Gap 4 mmol/L; Blood Urea Nitrogen 23 mg/dL (9-20); Calcium 8.2 mg/dL (8.4-10.2); Carbon Dioxide 23 mmol/L (22-30); Chloride 102 mmol/L (98-107); Creatine Kinase 669 U/L (55-170); Glucose 218 mg/dL (74-99); Magnesium 2.1 mg/dL (1.6-2.3); Non-African American GFR(CKD) >90 (>60 ml/min/1.73 sqM); Sodium 129 mmol/L (137-145); Total Bilirubin 0.5 mg/dL (0.2-1.3); Total Protein 5.3 g/dL (6.3-8.2)
[2019-08-23 04:27] LABS: Basophils % (A) 0 %; Eosinophils # (A) 0.1 k/uL (0-0.7); Eosinophils % (A) 1 %; HCT 33.8 % (39.0-53.0); HGB 11.2 gm/dL (13.0-17.5); Lymphocytes # (A) 0.9 k/uL (1.0-4.8); Lymphocytes % (A) 10 %; MCH 29.5 pg (25.0-35.0); MCV 89.6 fL (80.0-100.0); Mean Platelet Volume 8.6; Monocytes % (A) 12 %; Neutrophils # (A) 6.5 k/uL (1.3-7.7); Neutrophils % (A) 75 %; Platelet Count 363 k/uL (150-450); RBC 3.78 m/uL (4.30-5.90); RDW 13.1 % (11.5-15.5); WBC 8.7 k/uL (3.8-10.6)
[2019-08-23 06:06] LABS: Glucose,Whole Blood 214 mg/dL (75-99)
[2019-08-23] MEDS: INSULIN ASPART (NovoLOG) 100 UNIT/ML VIAL SQ SCH ×4 (06:44→20:58)
[2019-08-23] MEDS: SODIUM CHLORIDE 0.9% 1,000 ML IV SCH ×2 (06:44→18:12)
[2019-08-23] MEDS: ATROPINE OPHTH SOLN 1% 5ML BTL LEFT EYE SCH ×2 (09:49→20:57)
[2019-08-23] MEDS: BRIMONIDINE TARTRATE 0.2% DROPS 5 ML BTL RIGHT EYE SCH ×2 (09:50→20:57)
[2019-08-23] MEDS: ASPIRIN 81 MG PO SCH (09:51)
[2019-08-23] MEDS: GABAPENTIN 300 MG CAP PO SCH ×3 (09:52→20:59)
[2019-08-23] MEDS: ATORVASTATIN 80 MG TAB PO SCH (09:52)
[2019-08-23] MEDS: DULoxetine HCL 60 MG CAPSULE.DR PO SCH (09:52)
[2019-08-23] MEDS: ZINC SULFATE 220 MG CAP PO SCH (09:52)
[2019-08-23] MEDS: DORZOLAMIDE HCL 2% DROPS 10 ML BTL RIGHT EYE SCH ×2 (09:58→20:57)
[2019-08-23 11:49] LABS: Glucose,Whole Blood 167 mg/dL (75-99)
[2019-08-23] MEDS: METOPROLOL TARTRATE 25 MG TAB PO SCH ×2 (12:43→20:53)
--- NOTE | 2019-08-23 15:54 | P.PN ---
Subjective Patient is resting comfortably He denies any discomfort in his chest Asked him whether he was having any discomfort at all and he pointed to his mid abdomen His blood pressure is improved. 110/62 mmHg and 110/62 mmHg Impression : Positive Covid Bilateral pneumonitis Pulmonary embolism Inferior wall injury, ST elevation with Q waves upon admission, with troponins between 15 and 17 Abdominal pain with thickening of the rectal wall and bladder wall on CT scan. 11.2 hemoglobin Sodium 120 time, potassium 4.0, BUN 23, creatinine 0.7 Suggest Continue aspirin, continue statins, continue IV heparin Continue medical management for myocardial injury with ST elevation This is consistent with severe Covid infection with bilateral pneumonitis evide nce of thrombotic event in the pulmonary arteries and in the coronary arteries and now with diarrhea associated with changes along the rectal wall Management upon the embolism per primary team Objective - Vital Signs Vital signs: Vital Signs Temp 97.6 F 08/23/19 08:00 Pulse 86 08/23/19 08:00 Resp 20 08/23/19 08:00 BP 84/51 08/23/19 08:00 Pulse Ox 95 08/23/19 08:00 Intake & Output 08/22/19 08/23/19 08/23/19 18:59 06:59 18:59 Intake Total 91.385 240 Balance 91.385 240 Weight 74.843 kg 66 kg Intake: Intake, IV Titration 91.385 Amount Heparin Sod,Pork in 0.45% 91.385 NaCl 25,000 unit In 0.45 % NaCl 1 250ml.bag @ 18 UNITS/KG/HR 13.472 mls/hr IV .[id number] [facility] Rx#: [id number] Oral 240 Other: Voiding Method Diaper # Voids 1 - Labs CBC & Chem 7: 08/23/19 03:31 08/23/19 03:31 Labs: Abnormal Lab Results - Last 24 Hours (Table) 08/22/19 08/22/19 08/22/19 Range/Units 15:36 15:36 15:36 RBC (4.30-5.90) m/uL Hgb (13.0-17.5) gm/dL Hct (39.0-53.0) % Lymphocytes # (1.0-4.8) k/uL INR 1.2 H (<1.2) APTT 105.1 H* (22.0-30.0) sec Sodium 134 L (137-145) mmol/L Potassium 3.3 L (3.5-5.1) mmol/L BUN 24 H (9-20) mg/dL Glucose 180 H (74-99) mg/dL POC Glucose (mg/dL) (75-99) mg/dL Calcium 7.5 L (8.4-10.2) mg/dL Magnesium 1.2 L (1.6-2.3) mg/dL AST 101 H (17-59) U/L Creatine Kinase (55-170) U/L Troponin I 15.200 H* (0.000-0.034) ng/mL Total Protein 5.5 L (6.3-8.2) g/dL Albumin 2.6 L (3.5-5.0) g/dL 08/22/19 08/22/19 08/22/19 Range/Units 16:30 18:57 20:22 RBC (4.30-5.90) m/uL Hgb (13.0-17.5) gm/dL Hct (39.0-53.0) % Lymphocytes # (1.0-4.8) k/uL INR (<1.2) APTT 39.4 H (22.0-30.0) sec Sodium (137-145) mmol/L Potassium (3.5-5.1) mmol/L BUN (9-20) mg/dL Glucose (74-99) mg/dL POC Glucose (mg/dL) 183 H 245 H (75-99) mg/dL Calcium (8.4-10.2) mg/dL Magnesium (1.6-2.3) mg/dL AST (17-59) U/L Creatine Kinase (55-170) U/L Troponin I (0.000-0.034) ng/mL Total Protein (6.3-8.2) g/dL Albumin (3.5-5.0) g/dL 08/22/19 08/23/19 08/23/19 Range/Units 20:58 03:31 03:31 RBC 3.78 L (4.30-5.90) m/uL Hgb 11.2 L (13.0-17.5) gm/dL Hct 33.8 L (39.0-53.0) % Lymphocytes # 0.9 L (1.0-4.8) k/uL INR (<1.2) APTT (22.0-30.0) sec Sodium (137-145) mmol/L Potassium (3.5-5.1) mmol/L BUN (9-20) mg/dL Glucose (74-99) mg/dL POC Glucose (mg/dL) (75-99) mg/dL Calcium (8.4-10.2) mg/dL Magnesium (1.6-2.3) mg/dL AST (17-59) U/L Creatine Kinase (55-170) U/L Troponin I 16.500 H* 17.800 H* (0.000-0.034) ng/mL Total Protein (6.3-8.2) g/dL Albumin (3.5-5.0) g/dL 08/23/19 08/23/19 08/23/19 Range/Units 03:31 03:31 06:05 RBC (4.30-5.90) m/uL Hgb (13.0-17.5) gm/dL Hct (39.0-53.0) % Lymphocytes # (1.0-4.8) k/uL INR (<1.2) APTT 116.0 H* (22.0-30.0) sec Sodium 129 L (137-145) mmol/L Potassium (3.5-5.1) mmol/L BUN 23 H (9-20) mg/dL Glucose 218 H (74-99) mg/dL POC Glucose (mg/dL) 214 H (75-99) mg/dL Calcium 8.2 L (8.4-10.2) mg/dL Magnesium (1.6-2.3) mg/dL AST 121 H (17-59) U/L Creatine Kinase 669 H (55-170) U/L Troponin I (0.000-0.034) ng/mL Total Protein 5.3 L (6.3-8.2) g/dL Albumin 2.6 L (3.5-5.0) g/dL 08/23/19 08/23/19 Range/Units 11:43 11:48 RBC (4.30-5.90) m/uL Hgb (13.0-17.5) gm/dL Hct (39.0-53.0) % Lymphocytes # (1.0-4.8) k/uL INR (<1.2) APTT 54.2 H (22.0-30.0) sec Sodium (137-145) mmol/L Potassium (3.5-5.1) mmol/L BUN (9-20) mg/dL Glucose (74-99) mg/dL POC Glucose (mg/dL) 167 H (75-99) mg/dL Calcium (8.4-10.2) mg/dL Magnesium (1.6-2.3) mg/dL AST (17-59) U/L Creatine Kinase (55-170) U/L Troponin I (0.000-0.034) ng/mL Total Protein (6.3-8.2) g/dL Albumin (3.5-5.0) g/dL
[2019-08-23 16:44] LABS: Glucose,Whole Blood 233 mg/dL (75-99)
--- NOTE | 2019-08-23 16:46 | P.PN ---
Subjective Progress Note Date: 08/23/19 Principal diagnosis: Covid, ST elevation [place] Patient was seen and examined. No acute events overnight. Patient reports significant improvement in his chest pain but his chest pain continues to linger. He denies any shortness of breath. He continues to complain of dry cough and one episode of diarrhea. He continues to complain of leg pain, 7 out of 10 in severity. Objective - Vital Signs Vital signs: Vital Signs Temp 97.6 F 08/23/19 08:00 Pulse 86 08/23/19 08:00 Resp 20 08/23/19 08:00 BP 84/51 08/23/19 08:00 Pulse Ox 95 08/23/19 08:00 Intake & Output 08/22/19 08/23/19 08/23/19 18:59 06:59 18:59 Intake Total 91.385 240 Balance 91.385 240 Weight 74.843 kg 66 kg Intake: Intake, IV Titration 91.385 Amount Heparin Sod,Pork in 0.45% 91.385 NaCl 25,000 unit In 0.45 % NaCl 1 250ml.bag @ 18 UNITS/KG/HR 13.472 mls/hr IV .[id number] [facility] Rx#: [id number] Oral 240 Other: Voiding Method Diaper # Voids 1 - Exam General: [non toxic], [no distress], [appears at stated age] Derm: [warm], [dry] Head: [atraumatic], [normocephalic], [symmetric] Eyes: [EOMI], [no lid lag], [anicteric sclera] Mouth: [no lip lesion], [mucus membranes moist] Cardiovascular: [S1S2 reg], [no murmur], [positive DP pulse bilateral], Lungs: [Decreased breath sounds bilateral], [no rhonchi, no rales] , [no accessory muscle use] Abdominal: [soft], [ nontender to palpation], [no guarding], [no appreciable organomegaly] Ext: [no gross muscle atrophy], [no edema], [no contractures] Neuro: [no focal neuro deficits] Psych: [Alert], [oriented], [appropriate affect] - Labs CBC & Chem 7: 08/23/19 03:31 08/23/19 03:31 Labs: Abnormal Lab Results - Last 24 Hours (Table) 04/25/20 04/25/20 04/25/20 Range/Units 15:36 16:30 18:57 RBC (4.30-5.90) m/uL Hgb (13.0-17.5) gm/dL Hct (39.0-53.0) % Lymphocytes # (1.0-4.8) k/uL APTT 39.4 H (22.0-30.0) sec Sodium (137-145) mmol/L BUN (9-20) mg/dL Glucose (74-99) mg/dL POC Glucose (mg/dL) 183 H (75-99) mg/dL Calcium (8.4-10.2) mg/dL AST (17-59) U/L Creatine Kinase (55-170) U/L Troponin I 15.200 H* (0.000-0.034) ng/mL Total Protein (6.3-8.2) g/dL Albumin (3.5-5.0) g/dL 08/22/19 08/22/19 08/23/19 Range/Units 20:22 20:58 03:31 RBC (4.30-5.90) m/uL Hgb (13.0-17.5) gm/dL Hct (39.0-53.0) % Lymphocytes # (1.0-4.8) k/uL APTT (22.0-30.0) sec Sodium (137-145) mmol/L BUN (9-20) mg/dL Glucose (74-99) mg/dL POC Glucose (mg/dL) 245 H (75-99) mg/dL Calcium (8.4-10.2) mg/dL AST (17-59) U/L Creatine Kinase (55-170) U/L Troponin I 16.500 H* 17.800 H* (0.000-0.034) ng/mL Total Protein (6.3-8.2) g/dL Albumin (3.5-5.0) g/dL 08/23/19 08/23/19 08/23/19 Range/Units 03:31 03:31 03:31 RBC 3.78 L (4.30-5.90) m/uL Hgb 11.2 L (13.0-17.5) gm/dL Hct 33.8 L (39.0-53.0) % Lymphocytes # 0.9 L (1.0-4.8) k/uL APTT 116.0 H* (22.0-30.0) sec Sodium 129 L (137-145) mmol/L BUN 23 H (9-20) mg/dL Glucose 218 H (74-99) mg/dL POC Glucose (mg/dL) (75-99) mg/dL Calcium 8.2 L (8.4-10.2) mg/dL AST 121 H (17-59) U/L Creatine Kinase 669 H (55-170) U/L Troponin I (0.000-0.034) ng/mL Total Protein 5.3 L (6.3-8.2) g/dL Albumin 2.6 L (3.5-5.0) g/dL 08/23/19 08/23/19 08/23/19 Range/Units 06:05 11:43 11:48 RBC (4.30-5.90) m/uL Hgb (13.0-17.5) gm/dL Hct (39.0-53.0) % Lymphocytes # (1.0-4.8) k/uL APTT 54.2 H (22.0-30.0) sec Sodium (137-145) mmol/L BUN (9-20) mg/dL Glucose (74-99) mg/dL POC Glucose (mg/dL) 214 H 167 H (75-99) mg/dL Calcium (8.4-10.2) mg/dL AST (17-59) U/L Creatine Kinase (55-170) U/L Troponin I (0.000-0.034) ng/mL Total Protein (6.3-8.2) g/dL Albumin (3.5-5.0) g/dL Assessment and Plan Assessment: ST elevation [place] Bilateral pulmonary embolus COVID pneumonia Hyponatremia Bilateral lower extremity pain Diabetes mellitus with hyperglycemia Troponin was 15.2,16.5,17.[address] elevation with Q waves. Patient was evaluated by cardiology in the ED. Plans for medical treatment. Plans: Continue heparin drip. Continue aspirin. Continue Lipitor. Continue metoprolol. Telemetry monitoring. Follow-up echocardiogram. Follow cardiology consultation. As seen on chest CTA chest. Plans: Heparin drip as above. Coronavirus testing positive. Plans: O2 per NC to maintain O2 saturation greater than 92%. Will check pro-calcitonin prior to continuation of antibiotics. Tylenol as needed for fever. Sodium 129. Plans: Likely prerenal also with elevation of BUN. Continue IVF as below. Repeat BMP tomorrow. Tenderness to palpation of the quadriceps. CPK 669. Plans: Continue normal saline at 80 mL/h. Pain control with Tylenol, morphine as needed. Restart home medication of gabapentin and Cymbalta. Vkoze-sh-itvs glucose 167. Plans: Insulin sliding scale. Regular Accu-Cheks. Hypoglycemic precautions. [Patient admitted for ST elevation [place]. Also has bilateral PE. Covid positive. He is pending clinical improvement. Likely DC in 2-3 days.]
[2019-08-23 17:07] LABS: Glucose,Whole Blood 229 mg/dL (75-99)
[2019-08-23] MEDS: HEPARIN SOD,PORK IN 0.45% NACL 25,000 UNIT in 0.45% NACL 1 250ML.BAG IV SCH (18:08)
[2019-08-23 20:39] LABS: Glucose,Whole Blood 236 mg/dL (75-99)
[2019-08-23] MEDS: DULoxetine HCL 30 MG CAPSULE.DR PO SCH (20:56)
[2019-08-23] MEDS: LATANOPROST 0.005% OPHTH DROPS 2.5 ML BTL BOTH EYES SCH (20:57)
[2019-08-24 06:28] LABS: Glucose,Whole Blood 154 mg/dL (75-99)
[2019-08-24] MEDS: INSULIN ASPART (NovoLOG) 100 UNIT/ML VIAL SQ SCH ×4 (07:03→20:48)
[2019-08-24] MEDS: SODIUM CHLORIDE 0.9% 1,000 ML IV SCH ×3 (07:04→20:35)
[2019-08-24] MEDS: ATORVASTATIN 80 MG TAB PO SCH (09:13)
[2019-08-24] MEDS: ASPIRIN 81 MG PO SCH (09:13)
[2019-08-24] MEDS: ATROPINE OPHTH SOLN 1% 5ML BTL LEFT EYE SCH ×2 (09:13→20:37)
[2019-08-24] MEDS: BRIMONIDINE TARTRATE 0.2% DROPS 5 ML BTL RIGHT EYE SCH ×2 (09:13→20:37)
[2019-08-24] MEDS: DORZOLAMIDE HCL 2% DROPS 10 ML BTL RIGHT EYE SCH ×2 (09:14→20:37)
[2019-08-24] MEDS: DULoxetine HCL 60 MG CAPSULE.DR PO SCH (09:14)
[2019-08-24] MEDS: GABAPENTIN 300 MG CAP PO SCH ×3 (09:14→20:36)
[2019-08-24] MEDS: METOPROLOL TARTRATE 25 MG TAB PO SCH (09:14)
[2019-08-24] MEDS: ZINC SULFATE 220 MG CAP PO SCH (09:14)
--- NOTE | 2019-08-24 10:00 | ECHOF ---
Referral Reason:STEMi MEASUREMENTS -------- HEIGHT: 170.2 cm WEIGHT: 76.2 kg BP: 87/56 RVIDd: 3.1 cm (< 3.3) IVSd: 1.0 cm (0.6 - 1.1) LVIDd: 3.4 cm (3.9 - 5.3) LVPWd: 1.2 cm (0.6 - 1.1) IVSs: 1.4 cm LVIDs: 3.4 cm LVPWs: 1.5 cm LA Diam: 3.1 cm (2.7 - 3.8) LAESV Index (A-L): 26.67 ml/m Ao Diam: 2.7 cm (2.0 - 3.7) AV Cusp: 2.1 cm (1.5 - 2.6) MV EXCURSION: 10.629 mm (> 18.000) MV EF SLOPE: 75 mm/s (70 - 150) EPSS: 0.6 cm MV E Tristen: 0.97 m/s MV DecT: 139 ms MV A Tristen: 1.05 m/s MV E/A Ratio: 0.92 RAP: 5.00 mmHg RVSP: 30.35 mmHg FINDINGS -------- Sinus rhythm. This was a technically good study. The left ventricular size is normal. There is borderline concentric left ventricular hypertrophy. Overall left ventricular systolic function is mildly impaired with, an EF between 45 - 50 %. Basal inferior LV wall motion is hypokinetic. Basal inferoseptal LV wall motion is hypokinetic. The right ventricle is normal in size. Normal LA size by volume 22+/-6 ml/m2. The right atrium is normal in size. Interatrial and interventricular septum intact. The aortic valve is trileaflet and appears structurally normal. Mild mitral regurgitation is present. Mild tricuspid regurgitation present. Right ventricular systolic pressure is normal at < 35 mmHg. Trace/mild (physiologic) pulmonic regurgitation. The aortic root size is normal. Normal inferior vena cava with normal inspiratory collapse consistent with estimated right atrial pre ssure of 5 mmHg. There is no pericardial effusion. CONCLUSIONS -------- 1. Sinus rhythm. 2. This was a technically good study. 3. The left ventricular size is normal. 4. There is borderline concentric left ventricular hypertrophy. 5. Overall left ventricular systolic function is mildly impaired with, an EF between 45 - 50 %. 6. Basal inferior LV wall motion is hypokinetic. 7. Basal inferoseptal LV wall motion is hypokinetic. 8. The right ventricle is normal in size. 9. Normal LA size by volume 22+/-6 ml/m2. 10. The right atrium is normal in size. 11. Interatrial and interventricular septum intact. 12. The aortic valve is trileaflet and appears structurally normal. 13. Mild mitral regurgitation is present. 14. Mild tricuspid regurgitation present. 15. Right ventricular systolic pressure is normal at < 35 mmHg. 16. Trace/mild (physiologic) pulmonic regurgitation. 17. The aortic root size is normal. 18. Normal inferior vena cava with normal inspiratory collapse consistent with estimated right atrial pressure of 5 mmHg. 19. There is no pericardial effusion. [employer] DEPUTY: Dorothy Goldsmith RDCS
[2019-08-24 11:13] LABS: Glucose,Whole Blood 197 mg/dL (75-99)
[2019-08-24] MEDS: HEPARIN SOD,PORK IN 0.45% NACL 25,000 UNIT in 0.45% NACL 1 250ML.BAG IV SCH (11:23)
--- NOTE | 2019-08-24 11:46 | P.PN ---
Subjective Progress Note Date: 08/24/19 This is a 64-year-old gentleman who was initially transferred here from [facility]. He presented there with a fall. His EKG showed some ST elevation in the inferior leads as compared with an old EKG this reason the patient was transferred to [facility] for further evaluation and treatment. Patient denied having any chest discomfort but was having discomfort in his lower abdominal region. Patient also had suspicion for possible pulmonary embolism. He is currently positive with bilateral pneumonitis. The decision at this point and time is to continue to treat the patient with maximal medical therapy. He is comfortable this morning, we need to continue anticoagulation, his blood pressure is running on the low side, orders have been given to hold his blood pressure medication for a systolic of less than 100. An echocardiogram with Doppler study was performed which revealed basal inferior and basal inferior septal wall hypokinesia with an ejection fraction of 45-50%. Blood pressure this morning 108/60 with a heart rate of 90, 99% on 2 L of oxygen. Troponin peaked at 17.8. We will continue the patient on a baby aspirin daily, Lipitor 80, metoprolol 12-1/2 mg one tablet by mouth twice a day. We will discontinue the IV heparin and start the patient on Eliquis per PE protocol. Objective - Vital Signs Vital signs: Vital Signs Temp 97.8 F 08/24/19 08:00 Pulse 100 08/24/19 08:00 Resp 18 08/24/19 08:00 BP 107/59 08/24/19 08:00 Pulse Ox 99 08/24/19 08:00 Intake & Output 08/23/19 08/24/19 08/24/19 18:59 06:59 18:59 Intake Total 480 553.718 Output Total 1100 Balance 480 -1100 553.718 Weight 76.5 kg Intake: Intake, IV Titration 0 193.718 Amount Heparin Sod,Pork in 0.45% 0 193.718 NaCl 25,000 unit In 0.45 % NaCl 1 250ml.bag @ 18 UNITS/KG/HR 13.472 mls/hr IV .[id number] [facility] Rx#: [id number] Oral 480 360 Output: Urine 1100 Straight 1100 Other: Voiding Method Diaper Diaper # Voids 1 # Bowel Movements 1 - Exam PHYSICAL EXAMINATION: GENERAL:64 year old man, in no acute distress at the time of my exam HEENT: Head is atraumatic, normocephalic. Pupils equal, round. Sclera anicteric. Conjunctiva are clear. Mucous membranes of the mouth are moist. Neck is supple. There is no elevated jugular venous pressure.No carotid bruit is heard. HEART EXAMINATION: Heart S1, S2 normal. No murmur or gallop heard. CHEST EXAMINATION: Lungs reveal diinished a/e bilaterally. ABDOMEN: Soft, nontender. Bowel sounds are heard. No organomegaly noted. EXTREMITIES: 2+ peripheral pulses with no evidence of peripheral edema and no calf tenderness noted. NEUROLOGIC patient is awake, alert and oriented X3. . - Labs CBC & Chem 7: 08/23/19 03:31 08/23/19 03:31 Labs: Abnormal Lab Results - Last 24 Hours (Table) 08/23/19 08/23/19 08/23/19 Range/Units 11:43 11:48 16:40 APTT 54.2 H (22.0-30.0) sec POC Glucose (mg/dL) 167 H 233 H (75-99) mg/dL 08/23/19 08/23/19 08/24/19 Range/Units 16:56 20:37 06:01 APTT 58.9 H (22.0-30.0) sec POC Glucose (mg/dL) 229 H 236 H (75-99) mg/dL 08/24/19 08/24/19 Range/Units 06:26 11:11 APTT (22.0-30.0) sec POC Glucose (mg/dL) 154 H 197 H (75-99) mg/dL Microbiology - Last 24 Hours (Table) 08/22/19 17:00 Blood Culture - Preliminary Blood No Growth after 24 hours Assessment and Plan Plan: Assessment and plan #1 inferior wall IL, maximal medical therapy advised #2 positive carotid #3 bilateral pneumonitis #4 possible pulmonary embolism #5 hyperlipidemia #6 abdominal pain with thickening of the rectal wall and bladder wall on CAT scan Plan Echocardiogram with Doppler study revealed inferior and inferior septal hypokinesia with an ejection fraction of 45-50%. We will continue current medications. Discontinue IV heparin and start the patient on Eliquis per PE protocol. We will add Plavix as well. Patient was continued triple therapy for one month, at which time the aspirin will be discontinued. Antihypertensives will also be held for systolic less than 100. DNP note has been reviewed, I agree with a documented findings and plan of care. Patient was seen and examined.
[2019-08-24] MEDS: CLOPIDOGREL 75 MG TAB PO SCH (11:56)
[2019-08-24] MEDS: APIXABAN 5 MG TAB PO SCH ×2 (11:56→20:36)
[2019-08-24 16:14] LABS: Glucose,Whole Blood 308 mg/dL (75-99)
--- NOTE | 2019-08-24 16:30 | P.PN ---
Subjective Progress Note Date: 08/24/19 Principal diagnosis: Covid, ST elevation [place] Patient was seen and examined. No acute events overnight. Patient reports significant improvement in his chest pain but his chest pain continues to linger. He denies any shortness of breath. He continues to complain of a wet cough. He continues to complain of leg pain, bilateral, described as myalgias, 6 out of 10 in severity. Objective - Vital Signs Vital signs: Vital Signs Temp 97.6 F 08/24/19 15:47 Pulse 103 H 08/24/19 15:47 Resp 18 08/24/19 15:47 BP 121/73 08/24/19 15:47 Pulse Ox 97 08/24/19 15:47 Intake & Output 08/23/19 08/24/19 08/24/19 18:59 06:59 18:59 Intake Total 480 913.718 Output Total 1100 Balance 480 -1100 913.718 Weight 76.5 kg Intake: Intake, IV Titration 0 193.718 Amount Heparin Sod,Pork in 0.45% 0 193.718 NaCl 25,000 unit In 0.45 % NaCl 1 250ml.bag @ 18 UNITS/KG/HR 13.472 mls/hr IV .[id number] [facility] Rx#: [id number] Oral 480 720 Output: Urine 1100 Straight 1100 Other: Voiding Method Diaper Diaper # Voids 1 # Bowel Movements 1 - Exam General: [non toxic], [no distress], [appears at stated age] Derm: [warm], [dry] Head: [atraumatic], [normocephalic], [symmetric] Eyes: [EOMI], [no lid lag], [anicteric sclera] Mouth: [no lip lesion], [mucus membranes moist] Cardiovascular: [S1S2 reg], [no murmur], [positive DP pulse bilateral], Lungs: [Decreased breath sounds bilateral], [no rhonchi, no rales] , [no accessory muscle use] Abdominal: [soft], [ nontender to palpation], [no guarding], [no appreciable organomegaly] Ext: [no gross muscle atrophy], [no edema], [no contractures] Neuro: [no focal neuro deficits] Psych: [Alert], [oriented], [appropriate affect] - Labs CBC & Chem 7: 04/26/20 03:31 08/23/19 03:31 Labs: Abnormal Lab Results - Last 24 Hours (Table) 08/23/19 08/23/19 08/23/19 Range/Units 16:40 16:56 20:37 APTT (22.0-30.0) sec POC Glucose (mg/dL) 233 H 229 H 236 H (75-99) mg/dL 08/24/19 08/24/19 08/24/19 Range/Units 06:01 06:26 11:11 APTT 58.9 H (22.0-30.0) sec POC Glucose (mg/dL) 154 H 197 H (75-99) mg/dL 08/24/19 Range/Units 16:13 APTT (22.0-30.0) sec POC Glucose (mg/dL) 308 H (75-99) mg/dL Microbiology - Last 24 Hours (Table) 08/22/19 17:00 Blood Culture - Preliminary Blood No Growth after 24 hours Assessment and Plan Assessment: ST elevation [place] Chronic systolic CHF Bilateral pulmonary embolus COVID pneumonia Hyponatremia Bilateral lower extremity pain Diabetes mellitus with hyperglycemia Troponin was 15.2,16.5,17.[address] elevation with Q waves. Patient was evaluated by cardiology in the ED. Plans for medical treatment. Plans: Heparin drip discontinued by cardiology. Continue aspirin. Started on Plavix. Continue Lipitor. Continue metoprolol. Telemetry monitoring. Follow cardiology consultation. Echocardiogram shows EF 45-50% with hypokinetic wall motion. Plans: Continue beta hal. Would likely benefit from ESTRELLITA inhibitor prior to discharge. Cardiology on board. As seen on chest CTA chest. Plan Discontinue heparin drip and start Eliquis. Coronavirus testing positive. pro-calcitonin negative. Plans: O2 per NC to maintain O2 saturation greater than 92%. Tylenol as needed for fever. Sodium 129. Plans: Likely prerenal also with elevation of BUN. Continue IVF as below. Repeat BMP tomorrow. Tenderness to palpation of the quadriceps. CPK 669. Plans: Continue normal saline at 80 mL/h. Pain control with Tylenol, morphine as needed. Restart home medication of gabapentin and Cymbalta. Ipqae-[id number] glucose 308. Plans: Insulin sliding scale. Regular Accu-Cheks. Hypoglycemic precautions. [Patient admitted for ST elevation [place]. Also has bilateral PE. COVID positive. Cardiology following. He is pending clinical improvement. Likely DC in 2-3 days.]
[2019-08-24] MEDS: METOPROLOL TARTRATE 12.5 MG TAB PO SCH (20:36)
[2019-08-24] MEDS: LATANOPROST 0.005% OPHTH DROPS 2.5 ML BTL BOTH EYES SCH (20:37)
[2019-08-24] MEDS: DULoxetine HCL 30 MG CAPSULE.DR PO SCH (20:37)
[2019-08-24 20:39] LABS: Glucose,Whole Blood 301 mg/dL (75-99)
[2019-08-25 02:04] LABS: Glucose,Whole Blood 267 mg/dL (75-99)
[2019-08-25 06:19] LABS: Glucose,Whole Blood 204 mg/dL (75-99)
[2019-08-25] MEDS: INSULIN ASPART (NovoLOG) 100 UNIT/ML VIAL SQ SCH ×4 (06:40→21:24)
[2019-08-25 08:55] LABS: Basophils % (A) 0 %; Eosinophils % (A) 1 %; HCT 30.9 % (39.0-53.0); Hypochromasia Slight; Lymphocytes # (A) 0.8 k/uL (1.0-4.8); Lymphocytes % (A) 10 %; MCH 30.1 pg (25.0-35.0); MCHC 32.2 g/dL (31.0-37.0); MCV 93.4 fL (80.0-100.0); Mean Platelet Volume 7.9; Monocytes # (A) 0.7 k/uL (0-1.0); Monocytes % (A) 9 %; Neutrophils # (A) 6.1 k/uL (1.3-7.7); Neutrophils % (A) 79 %; Platelet Count 268 k/uL (150-450); RBC 3.31 m/uL (4.30-5.90); RDW 13.6 % (11.5-15.5); WBC 7.7 k/uL (3.8-10.6)
[2019-08-25] MEDS: ATORVASTATIN 80 MG TAB PO SCH (08:58)
[2019-08-25] MEDS: APIXABAN 5 MG TAB PO SCH ×2 (08:58→21:23)
[2019-08-25] MEDS: ZINC SULFATE 220 MG CAP PO SCH (08:58)
[2019-08-25] MEDS: CLOPIDOGREL 75 MG TAB PO SCH (08:58)
[2019-08-25] MEDS: METOPROLOL TARTRATE 12.5 MG TAB PO SCH ×3 (08:58→21:24)
[2019-08-25] MEDS: ASPIRIN 81 MG PO SCH (08:58)
[2019-08-25] MEDS: DULoxetine HCL 60 MG CAPSULE.DR PO SCH (08:58)
[2019-08-25] MEDS: GABAPENTIN 300 MG CAP PO SCH ×3 (08:58→21:24)
[2019-08-25] MEDS: ATROPINE OPHTH SOLN 1% 5ML BTL LEFT EYE SCH (09:01)
[2019-08-25] MEDS: DORZOLAMIDE HCL 2% DROPS 10 ML BTL RIGHT EYE SCH (09:01)
[2019-08-25] MEDS: BRIMONIDINE TARTRATE 0.2% DROPS 5 ML BTL RIGHT EYE SCH (09:02)
[2019-08-25 09:13] LABS: ALT 23 U/L (4-49); AST 51 U/L (17-59); African American GFR (CKD) >90 (>60 ml/min/1.73 sqM); Albumin 2.4 g/dL (3.5-5.0); Alkaline Phosphatase 127 U/L (38-126); Anion Gap 5 mmol/L; Blood Urea Nitrogen 13 mg/dL (9-20); Calcium 7.8 mg/dL (8.4-10.2); Carbon Dioxide 28 mmol/L (22-30); Chloride 101 mmol/L (98-107); Glucose 186 mg/dL (74-99); Magnesium 1.4 mg/dL (1.6-2.3); Non-African American GFR(CKD) >90 (>60 ml/min/1.73 sqM); Phosphorus 2.7 mg/dL (2.5-4.5); Potassium 4.2 mmol/L (3.5-5.1); Sodium 134 mmol/L (137-145); Total Bilirubin 0.4 mg/dL (0.2-1.3); Total Protein 5.1 g/dL (6.3-8.2)
[2019-08-25] MEDS ORDERED: Magnesium Replacement Protocol 1 EACH MISC MISCELLANE PRN (11:31)
[2019-08-25 11:58] LABS: Glucose,Whole Blood 178 mg/dL (75-99)
[2019-08-25] MEDS: MAGNESIUM SULFATE-D5W PMX 1 GM in DEXTROSE/WATER 1 100ML.BAG IVPB SCH ×3 (12:26→15:40)
[2019-08-25] MEDS: SODIUM CHLORIDE 0.9% 1,000 ML IV SCH (12:27)
--- NOTE | 2019-08-25 14:07 | P.PN ---
Subjective Progress Note Date: 08/25/19 Principal diagnosis: Chest pain Patient still having chest pain and shortness of breath. He also complained of leg pain. He is feeling generally weak. Telemetry was showing possible AV block, EKG done and that revealed second-degree block. Objective - Vital Signs Vital signs: Vital Signs Temp 97.9 F 08/25/19 12:00 Pulse 63 08/25/19 12:00 Resp 18 08/25/19 12:00 BP 98/52 08/25/19 12:00 Pulse Ox 98 08/25/19 12:00 Intake & Output 08/24/19 08/25/19 08/25/19 18:59 06:59 18:59 Intake Total 1153.718 640 360 Output Total 1800 350 201 Balance -646.282 290 159 Weight 77 kg Intake: Intake, IV Titration 193.718 320 Amount Heparin Sod,Pork in 0.45% 193.718 NaCl 25,000 unit In 0.45 % NaCl 1 250ml.bag @ 18 UNITS/KG/HR 13.472 mls/hr IV .[id number] ROXI Rx#: [id number] Sodium Chloride 0.9% 1, 320 000 ml @ 80 mls/hr IV . [id number] RXOI Rx#:[id number] Oral 960 320 360 Output: Urine 1800 350 200 Straight 1100 Stool 1 Other: Voiding Method Indwelling Catheter Indwelling Catheter # Voids 0 # Bowel Movements 0 - Exam General: [non toxic], [no distress], [appears at stated age] Derm: [warm], [dry] Head: [atraumatic], [normocephalic], [symmetric] Eyes: [EOMI], [no lid lag], [anicteric sclera] Mouth: [no lip lesion], [mucus membranes moist] Cardiovascular: [S1S2 reg], [no murmur], [positive DP pulse bilateral], Lungs: [Decreased breath sounds bilateral], [no rhonchi, no rales] , [no acces opal muscle use] Abdominal: [soft], [ nontender to palpation], [no guarding], [no appreciable organomegaly] Ext: [no gross muscle atrophy], [no edema], [no contractures] Neuro: [no focal neuro deficits] Psych: [Alert], [oriented], [appropriate affect] - Labs CBC & Chem 7: 08/25/19 08:43 08/25/19 08:43 Labs: Abnormal Lab Results - Last 24 Hours (Table) 08/24/19 08/24/19 08/25/19 Range/Units 16:13 20:38 02:03 RBC (4.30-5.90) m/uL Hgb (13.0-17.5) gm/dL Hct (39.0-53.0) % Lymphocytes # (1.0-4.8) k/uL Sodium (137-145) mmol/L Glucose (74-99) mg/dL POC Glucose (mg/dL) 308 H 301 H 267 H (75-99) mg/dL Calcium (8.4-10.2) mg/dL Magnesium (1.6-2.3) mg/dL Alkaline Phosphatase (38-126) U/L Total Protein (6.3-8.2) g/dL Albumin (3.5-5.0) g/dL 08/25/19 08/25/19 08/25/19 Range/Units 06:17 08:43 08:43 RBC 3.31 L (4.30-5.90) m/uL Hgb 10.0 L (13.0-17.5) gm/dL Hct 30.9 L (39.0-53.0) % Lymphocytes # 0.8 L (1.0-4.8) k/uL Sodium 134 L (137-145) mmol/L Glucose 186 H (74-99) mg/dL POC Glucose (mg/dL) 204 H (75-99) mg/dL Calcium 7.8 L (8.4-10.2) mg/dL Magnesium 1.4 L (1.6-2.3) mg/dL Alkaline Phosphatase 127 H (38-126) U/L Total Protein 5.1 L (6.3-8.2) g/dL Albumin 2.4 L (3.5-5.0) g/dL 08/25/19 Range/Units 11:56 RBC (4.30-5.90) m/uL Hgb (13.0-17.5) gm/dL Hct (39.0-53.0) % Lymphocytes # (1.0-4.8) k/uL Sodium (137-145) mmol/L Glucose (74-99) mg/dL POC Glucose (mg/dL) 178 H (75-99) mg/dL Calcium (8.4-10.2) mg/dL Magnesium (1.6-2.3) mg/dL Alkaline Phosphatase (38-126) U/L Total Protein (6.3-8.2) g/dL Albumin (3.5-5.0) g/dL Microbiology - Last 24 Hours (Table) 08/22/19 17:00 Blood Culture - Preliminary Blood No Growth after 48 hours Assessment and Plan Plan: ST elevation [place] High degree AV block Chronic systolic CHF Bilateral pulmonary emboli COVID pneumonia Hyponatremia Bilateral lower extremity pain Diabetes mellitus with hyperglycemia General weakness According to cardiology patient will be managed medically for the NC He will need to be on triple anti-coagulation therapy with aspirin, Plavix as well as eliquis. EKG findings discussed with cardiology according to the nurse Continue Lipitor. Continue metoprolol. Telemetry monitoring. Follow cardiology consultation. Echocardiogram shows EF 45-50% with hypokinetic wall motion. Plans: Continue beta hal. Would likely benefit from ESTRELLITA inhibitor prior to discharge. O2 per NC to maintain O2 saturation greater than 92%. Tylenol as needed for fever. Sodium improved Pain control with Tylenol, morphine as needed. Restart home medication of gabapentin and Cymbalta. PT and OT
[2019-08-25 17:15] LABS: Glucose,Whole Blood 337 mg/dL (75-99)
[2019-08-25 21:11] LABS: Glucose,Whole Blood 368 mg/dL (75-99)
[2019-08-25] MEDS: DULoxetine HCL 30 MG CAPSULE.DR PO SCH (21:24)
[2019-08-26 02:02] LABS: Glucose,Whole Blood 235 mg/dL (75-99)
[2019-08-26 03:37] LABS: Glucose,Whole Blood 238 mg/dL (75-99)
[2019-08-26 04:03] LABS: Glucose,Whole Blood 229 mg/dL (75-99)
--- NOTE | 2019-08-26 04:09 | XR ---
EXAMINATION TYPE: XR chest 1V portable DATE OF EXAM: 08/26/2019 COMPARISON: 05/19/2017 HISTORY: Respiratory distress TECHNIQUE: 2 views FINDINGS: There is bilateral patchy pulmonary airspace infiltrates and atelectasis. There is poor ins piration. There is elevated right diaphragm. Pulmonary vascularity is difficult to evaluate because o f the lung disease. There are chest leads. IMPRESSION: Bilateral pneumonia and atelectasis that is essentially new compared to last exam.
[2019-08-26 04:12] LABS: ABG HCO3 25 mmol/L (21-25); ABG Oxygen Saturation 99.2 % (94-97); ABG PCO2 44 mmHg (35-45); ABG PH 7.36 (7.35-7.45); ABG PO2 149 mmHg (83-108); ABG TCO2 26 mmol/L (19-24); Allen Test Performed? Yes
[2019-08-26] MEDS: DORZOLAMIDE HCL 2% DROPS 10 ML BTL RIGHT EYE SCH ×3 (04:19→20:52)
[2019-08-26] MEDS: LATANOPROST 0.005% OPHTH DROPS 2.5 ML BTL BOTH EYES SCH ×2 (04:19→20:52)
[2019-08-26] MEDS: BRIMONIDINE TARTRATE 0.2% DROPS 5 ML BTL RIGHT EYE SCH ×3 (04:21→20:52)
[2019-08-26] MEDS: ATROPINE OPHTH SOLN 1% 5ML BTL LEFT EYE SCH ×3 (04:23→20:52)
[2019-08-26 04:38] LABS: Basophils % (A) 0 %; Eosinophils # (A) 0.1 k/uL (0-0.7); Eosinophils % (A) 1 %; HCT 31.9 % (39.0-53.0); HGB 9.8 gm/dL (13.0-17.5); Hypochromasia Slight; Lymphocytes # (A) 0.7 k/uL (1.0-4.8); Lymphocytes % (A) 8 %; MCH 29.2 pg (25.0-35.0); MCHC 30.8 g/dL (31.0-37.0); MCV 95.1 fL (80.0-100.0); Mean Platelet Volume 8.1; Monocytes % (A) 12 %; Neutrophils # (A) 6.6 k/uL (1.3-7.7); Neutrophils % (A) 77 %; Platelet Count 234 k/uL (150-450); RBC 3.36 m/uL (4.30-5.90); RDW 13.4 % (11.5-15.5); WBC 8.5 k/uL (3.8-10.6)
[2019-08-26] MEDS: SODIUM CHLORIDE 0.9% 1,000 ML IV SCH ×3 (04:39→23:33)
[2019-08-26 04:49] LABS: African American GFR (CKD) >90 (>60 ml/min/1.73 sqM); Anion Gap 5 mmol/L; Blood Urea Nitrogen 16 mg/dL (9-20); Calcium 8.4 mg/dL (8.4-10.2); Carbon Dioxide 26 mmol/L (22-30); Chloride 102 mmol/L (98-107); Glucose 236 mg/dL (74-99); Magnesium 1.7 mg/dL (1.6-2.3); Non-African American GFR(CKD) >90 (>60 ml/min/1.73 sqM); Potassium 4.8 mmol/L (3.5-5.1); Sodium 133 mmol/L (137-145)
--- NOTE | 2019-08-26 05:48 | P.EN ---
notified by RN , to evaluate patient due to sudden change in his clinical status. patient currently being treated for CAD (STEMI) , Covid Pneumonia ,and acute PE. He had sudden onset hypoxemia, and became hypotensive and unresponsive very briefly.. patient currently more stable, with SBP 112, on non rebreather 15 L. following simple commands. patient xray reviewed, no acute process. patient will be moved to the ICU for close monitoring overnight due to increase oxygen requirement and brief period of hypotension and unresponsiveness. Dr. Branham notified through perfect serve (left a voice message), [employer] notified 35 minutes spent in critical care time spent delivering care for this patient and coordinating care.
[2019-08-26] MEDS: MAGNESIUM SULFATE-D5W PMX 1 GM in DEXTROSE/WATER 1 100ML.BAG IVPB SCH ×2 (05:52→07:07)
[2019-08-26 07:45] LABS: Glucose,Whole Blood 272 mg/dL (75-99)
[2019-08-26] MEDS: INSULIN ASPART (NovoLOG) 100 UNIT/ML VIAL SQ SCH ×4 (08:12→20:43)
[2019-08-26] MEDS: GABAPENTIN 300 MG CAP PO SCH ×3 (08:14→20:53)
[2019-08-26] MEDS: DULoxetine HCL 60 MG CAPSULE.DR PO SCH (08:14)
[2019-08-26] MEDS: ZINC SULFATE 220 MG CAP PO SCH (08:14)
[2019-08-26] MEDS: ATORVASTATIN 80 MG TAB PO SCH (08:14)
[2019-08-26] MEDS: ASPIRIN 81 MG PO SCH (08:14)
[2019-08-26] MEDS: CLOPIDOGREL 75 MG TAB PO SCH (08:14)
[2019-08-26] MEDS: METOPROLOL TARTRATE 12.5 MG TAB PO SCH (08:14)
[2019-08-26] MEDS: APIXABAN 5 MG TAB PO SCH ×2 (08:14→20:45)
[2019-08-26] MEDS: FUROSEMIDE 10 MG/ML 4 ML VIAL IV STA ×2 (09:30→10:09)
[2019-08-26] MEDS: AZITHROMYCIN 500 MG TAB PO SCH (09:30)
[2019-08-26 09:40] LABS: C Reactive Protein 166.9 mg/L (<10.0)
[2019-08-26] MEDS ORDERED: SODIUM CHLORIDE 0.9% 500 ML 500 ML IV ONE ×2 (10:10→11:17)
--- NOTE | 2019-08-26 10:26 | P.PN ---
Subjective Progress Note Date: 08/26/19 Principal diagnosis: Chest pain Patient became hypoxic last night, was transferred to ICU, placed on oxygen. He is currently on 8 L of oxygen, heart rate occasionally dropping into the 40s. When asked to point where his chest pain was patient pointed to his abdomen. He continues to complain of shortness of breath. Objective - Vital Signs Vital signs: Vital Signs Temp 98.0 F 08/26/19 08:00 Pulse 48 L 08/26/19 10:00 Resp 19 08/26/19 10:00 BP 78/53 08/26/19 10:00 Pulse Ox 96 08/26/19 10:00 Intake & Output 08/25/19 08/26/19 08/26/19 18:59 06:59 18:59 Intake Total 360 200 300 Output Total 761 75 95 Balance -401 125 205 Intake: IV 80 300 Sodium Chloride 0.9% 1, 80 200 000 ml @ 20 mls/hr IV . Q24H ROXI Rx#:[id number] cefTRIAXone 1 gm In 100 Sodium Chloride 0.9% 50 ml @ 100 mls/hr IVPB Q24HR ROXI Rx#:[id number] Oral 360 120 Output: Urine 760 75 95 Stool 1 Other: Voiding Method Indwelling Catheter Indwelling Catheter # Voids 0 1 # Bowel Movements 0 - Exam General: [non toxic], [no distress], [appears at stated age] Derm: [warm], [dry] Head: [atraumatic], [normocephalic], [symmetric] Eyes: [EOMI], [no lid lag], [anicteric sclera] Mouth: [no lip lesion], [mucus membranes moist] Cardiovascular: [S1S2 reg], [no murmur], [positive DP pulse bilateral], Lungs: [Decreased breath sounds bilateral], [no rhonchi, no rales] , [no accessory muscle use] Abdominal: [soft], [ nontender to palpation], [no guarding], [no appreciable organomegaly] Ext: [no gross muscle atrophy], [no edema], [no contractures] Neuro: [no focal neuro deficits] Psych: [Alert], [oriented], [appropriate affect] - Labs CBC & Chem 7: 08/26/19 04:20 08/26/19 04:20 Labs: Abnormal Lab Results - Last 24 Hours (Table) 08/25/19 08/25/19 08/25/19 Range/Units 11:56 17:14 21:08 RBC (4.30-5.90) m/uL Hgb (13.0-17.5) gm/dL Hct (39.0-53.0) % MCHC (31.0-37.0) g/dL Lymphocytes # (1.0-4.8) k/uL D-Dimer (<0.60) mg/L FEU ABG pO2 (83-108) mmHg ABG Total CO2 (19-24) mmol/L ABG O2 Saturation (94-97) % Sodium (137-145) mmol/L Glucose (74-99) mg/dL POC Glucose (mg/dL) 178 H 337 H 368 H (75-99) mg/dL Lactate Dehydrogenase (313-618) U/L C-Reactive Protein (<10.0) mg/L 08/26/19 08/26/19 08/26/19 Range/Units 02:01 03:35 04:02 RBC (4.30-5.90) m/uL Hgb (13.0-17.5) gm/dL Hct (39.0-53.0) % MCHC (31.0-37.0) g/dL Lymphocytes # (1.0-4.8) k/uL D-Dimer (<0.60) mg/L FEU ABG pO2 (83-108) mmHg ABG Total CO2 (19-24) mmol/L ABG O2 Saturation (94-97) % Sodium (137-145) mmol/L Glucose (74-99) mg/dL POC Glucose (mg/dL) 235 H 238 H 229 H (75-99) mg/dL Lactate Dehydrogenase (313-618) U/L C-Reactive Protein (<10.0) mg/L 08/26/19 08/26/19 08/26/19 Range/Units 04:05 : 04:20 RBC 3.36 L (4.30-5.90) m/uL Hgb 9.8 L (13.0-17.5) gm/dL Hct 31.9 L (39.0-53.0) % MCHC 30.8 L (31.0-37.0) g/dL Lymphocytes # 0.7 L (1.0-4.8) k/uL D-Dimer (<0.60) mg/L FEU ABG pO2 149 H (83-108) mmHg ABG Total CO2 26 H (19-24) mmol/L ABG O2 Saturation 99.2 H (94-97) % Sodium 133 L (137-145) mmol/L Glucose 236 H (74-99) mg/dL POC Glucose (mg/dL) (75-99) mg/dL Lactate Dehydrogenase (313-618) U/L C-Reactive Protein (<10.0) mg/L 08/26/19 08/26/19 08/26/19 Range/Units 04: 07:43 09:21 RBC (4.30-5.90) m/uL Hgb (13.0-17.5) gm/dL Hct (39.0-53.0) % MCHC (31.0-37.0) g/dL Lymphocytes # (1.0-4.8) k/uL D-Dimer 1.03 H (<0.60) mg/L FEU ABG pO2 (83-108) mmHg ABG Total CO2 (19-24) mmol/L ABG O2 Saturation (94-97) % Sodium (137-145) mmol/L Glucose (74-99) mg/dL POC Glucose (mg/dL) 272 H (75-99) mg/dL Lactate Dehydrogenase 1067 H (313-618) U/L C-Reactive Protein 166.9 H (<10.0) mg/L Microbiology - Last 24 Hours (Table) 08/22/19 17:00 Blood Culture - Preliminary Blood No Growth after 72 hours Assessment and Plan Plan: ST elevation [place] High degree AV block Chronic systolic CHF Bilateral pulmonary emboli COVID pneumonia Hyponatremia Bilateral lower extremity pain Diabetes mellitus with hyperglycemia General weakness Ceftriaxone and azithromycin added by pulmonary Discussed with Dr. Romeo, no indication for pacemaker placement at this point. No indication for heart cath. He will need to be on triple anti-coagulation therapy with aspirin, Plavix as well as eliquis. Continue Lipitor. Hold metoprolol due to bradycardia. Echocardiogram shows EF 45-50% with hypokinetic wall motion. Would likely benefit from ESTRELLITA inhibitor prior to discharge. O2 per NC to maintain O2 saturation greater than 92%. Currently on 8 L Tylenol as needed for fever. Pain control with Tylenol, morphine as needed. Continue home medication of gabapentin and Cymbalta. PT and OT
--- NOTE | 2019-08-26 10:33 | US ---
EXAMINATION TYPE: US venous doppler duplex LE DATE OF EXAM: 08/26/2019 10:04 AM COMPARISON: NONE CLINICAL HISTORY: acute PE. PE, patient on blood thinner, pain bilateral legs SIDE PERFORMED: bilateral TECHNIQUE: The lower extremity deep venous system is examined utilizing real time linear array sonog iglesia with graded compression, doppler sonography and color-flow sonography. VESSELS IMAGED: External Iliac Vein (EIV) Common Femoral Vein Deep Femoral Vein Greater Saphenous Vein * Femoral Vein Popliteal Vein Small Saphenous Vein * Proximal Calf Veins (* superficial vessels) Right Leg: No evidence of DVT Left Leg: No evidence of DVT IMPRESSION: 1. Bilateral lower extremity ultrasound negative for deep venous thrombosis.
[2019-08-26 12:14] LABS: Glucose,Whole Blood 243 mg/dL (75-99)
--- NOTE | 2019-08-26 12:43 | P.CNPUL ---
History of Present Illness Consult date: 08/26/19 Reason for consult: hypoxemia, pneumonia, pulmonary embolism Chief complaint: Chest pain and lower extremities pain History of present illness: This is a 63-year-old white male with history of multiple medical problems i ncluding diabetes, diabetic neuropathy, degenerative joint disease, patient was transferred on 08/22/19 from [facility] were in he presented with chest pain. He was also complaining of lower extremities pain with symptoms of myalgia. Pain was described as substernal, severe and 9 out of 10 in severity. It was stabbing in nature. He was also complaining of 2 weeks history of dry cough. Also voiced concern that he had intermittent episodes of falling prior to presentation. Never lost his consciousness. His pain was described as associated with diaphoresis. At any rate patient was evaluated at [facility], and his CTA of the chest showed bilateral subsegmental pulmonary embolism and some multilobar interstitial process. Patient was tested for covid 19, and the test was positive. Arrangements were made to transfer patient to [facility], and this was done on 08/21. Patient was seen upon presentation by cardiology and he was felt to have ST elevation myocardial infarction however medical therapy was advised and set of primary angioplasty. Patient was placed on anticoagulation therapy and he was eventually transitioned to Eliquis. It was felt that his symptoms of discomfort have been going on for 3 days prior to presentation to [facility]. Patient was continued on heparin initially, he was also placed on low dose beta blockers, continued on aspirin and nitroglycerin. Patient denied any fever or chills, denied any hemoptysis. Denied any neurological symptoms upon presentation. Last night, the patient had an episode of hypoxia, and his heart rate was dropping down to the 40s. Patient was noted to turn blue and he was very pale and diaphoretic. Hence arrangements were made for the patient to be transferred to the ICU, placed on high flow nasal cannula, and I was asked to see him on consultation. Reviewed all the workup done including his chest x-ray which is clearly consistent with pneumonitis. Reviewed his CT of the chest, suggestive of pulmonary embolism. And reviewed his cardiac workup since admission consistent with acute ST elevation myocardial infarction. Echocardiogram showed ejection fraction of 45%. Labs this morning were unremarkable. ABG this morning on 100% FiO2 showed a pO2 of 149 pCO2 of 44 pH of 7.36. His d-dimer is 1.03. Renal profile is normal. C-reactive protein is 167 and LDH is 1067 blood sugar is 272 Review of Systems Constitutional: Weakness, fatigue, aches and pains. No fever no chills. HEENT: Negative. Pulmonary: As noted in HPI. Cardiac: As noted in HPI. GI: No nausea vomiting abdominal pain melena or hematemesis. Genitourinary: Denies any dysuria frequency urgency or hematuria. Musculoskeletal mostly aches and pains in the lower extremities/myalgia symptoms. Skin: Denies any rashes. Hematologic: Denies any history of clotting bleeding or bruising Psychiatric: Denies any symptoms of active depression. Neurologic: Didn't any headaches or seizures denies any diplopia Past Medical History Past Medical History: Diabetes Mellitus Additional Past Medical History / Comment(s): back and neck pain History of Any Multi-Drug Resistant Organisms: None Reported Additional Past Surgical History / Comment(s): upper back cyst removed Past Anesthesia/Blood Transfusion Reactions: No Reported Reaction Past Psychological History: Depression Smoking Status: Never smoker Past Alcohol Use History: Rare Past Drug Use History: None Reported - Past Family History Mother Family Medical History: Cancer Father Family Medical History: Myocardial Infarction ([place]) Medications and Allergies Home Medications Medication Instructions Recorded Confirmed Type DULoxetine HCL [Cymbalta] 60 mg PO BID 05/08/17 08/22/19 History Gabapentin [Neurontin] 300 mg PO BID 05/08/17 08/22/19 History Magnesium Oxide [Mag-Ox] 400 mg PO TID 05/08/17 08/22/19 History metFORMIN HCL 1,000 mg PO BID 05/08/17 08/22/19 History rOPINIRole HCL [Requip] 1 mg PO HS 05/08/17 08/22/19 History Alogliptin Benzoate [Alogliptin] 12.5 mg PO DAILY 08/22/19 08/22/19 History Aspirin EC [Ecotrin Low Dose] 81 mg PO DAILY 08/22/19 08/22/19 History Atropine Ophth Soln 1% 5Ml [Isopto 1 drops LEFT EYE BID 08/22/19 08/22/19 History Atropine 1% 5Ml] Brinzolamide/Brimonidine Tart 1 drop RIGHT EYE BID 08/22/19 08/22/19 History [Simbrinza 1%-0.2% Eye Drops] Cholecalciferol (Vitamin D3) 2,000 unit PO DAILY 08/22/19 08/22/19 History [Vitamin D3] Insulin Glargine,Hum.rec.anlog 60 unit SQ DAILY 08/22/19 08/22/19 History [Basaglar Kwikpen U-100] Naproxen 500 mg PO BID PRN 08/22/19 08/22/19 History Travoprost 1 drop BOTH EYES HS 08/22/19 08/22/19 History glipiZIDE [Glucotrol] 10 mg PO DAILY 08/22/19 08/22/19 History Allergies Allergy/AdvReac Type Severity Reaction Status Date / Time No Known Allergies Allergy Verified 08/12/17 14:25 Physical Exam Vitals: Vital Signs Temp Pulse Pulse Resp BP BP Pulse Ox 08/26/19 12:00 98.9 F 80 14 99/67 95 08/26/19 11:45 80 19 100/67 95 08/26/19 11:30 75 19 100/67 97 08/26/19 11:15 70 24 102/70 97 08/26/19 11:00 65 24 93/60 08/26/19 10:45 64 22 92/60 08/26/19 10:30 56 L 20 82/52 08/26/19 10:15 53 L 16 08/26/19 10:00 48 L 19 78/53 96 08/26/19 09:45 55 L 17 98 08/26/19 09:00 68 15 91/52 99 08/26/19 08:00 98.0 F 81 20 101/65 98 08/26/19 07:00 74 23 104/70 99 08/26/19 06:00 104 H 21 113/72 98 08/26/19 05:56 99 08/26/19 05:00 98.4 F 108 H 27 H 105/79 100 08/26/19 04:04 25 H 99 08/25/19 23:56 97.9 F 73 18 101/56 94 L 08/25/19 21:32 98.2 F 89 16 107/87 93 L 08/25/19 16:00 98.5 F 100 16 113/69 94 L Intake and Output 08/25/19 08/26/19 08/26/19 22:59 06:59 14:59 Intake Total 157 85 4543 Output Total 560 75 125 Balance -440 5 1275 Intake: IV 80 1400 Sodium Chloride 0.9% 1, 80 300 000 ml @ 80 mls/hr IV . [id number] [facility] Rx#:[id number] Sodium Chloride 0.9% 500 500 ml 500 ml @ 999 mls/hr IV .Q31M ONE Rx#:[id number] Sodium Chloride 0.9% 500 500 ml 500 ml @ 999 mls/hr IV .Q31M ONE Rx#:[id number] cefTRIAXone 1 gm In 100 Sodium Chloride 0.9% 50 ml @ 100 mls/hr IVPB Q24HR [facility] Rx#:[id number] Oral 120 Output: Urine 560 75 125 Other: Voiding Method Indwelling Catheter Indwelling Catheter Indwelling Catheter # Voids 1 Physical Exam: Gen.: Reveals 64-year-old white male in no distress. On high flow nasal cannula at present. Head: Atraumatic, normocephalic. HEENT:[Neck is supple.] [No neck masses.] [No thyromegaly.] [No JVD.] PERRLA, EOMI, no icterus. Chest: Symmetrical chest expansion, crackles at the bases bilaterally. No accessory muscles use. Cardiac Exam: [Normal S1 and S2, no S3 gallop, no murmur.] Abdomen: [Soft, nontender, no megaly, no rebound, no guarding, normal bowel sounds.] Extremities: [No clubbing, no edema, no cyanosis.] Good pulses bilaterally. Psychiatric: Normal mood affect and normal mental status examination. Neurological Exam: [No focal neurologic deficit.] Alert and oriented 3. Skin: No rashes. Results - Laboratory Findings CBC and BMP: 08/26/19 04:20 08/26/19 04:20 ABG ABG pH 7.36 (7.35-7.45) 08/26/19 04:05 ABG pCO2 44 mmHg (35-45) 08/26/19 04:05 ABG pO2 149 mmHg (83-108) H 08/26/19 04:05 ABG O2 Saturation 99.2 % (94-97) H 08/26/19 04:05 PT/INR, D-dimer PT 11.3 sec (9.0-12.0) 08/22/19 20:58 INR 1.1 (<1.2) 08/22/19 20:58 D-Dimer 1.03 mg/L FEU (<0.60) H 08/26/19 09:21 Abnormal lab findings: Abnormal Labs 08/22/19 08/22/19 08/22/19 15:20 15:36 15:36 RBC 3.99 L Hgb 12.1 L Hct 36.1 L MCHC Lymphocytes # 0.9 L INR 1.2 H APTT 105.1 H* D-Dimer ABG pO2 ABG Total CO2 ABG O2 Saturation Sodium Potassium BUN Glucose POC Glucose (mg/dL) Calcium Magnesium AST Alkaline Phosphatase Lactate Dehydrogenase Creatine Kinase Troponin I C-Reactive Protein Total Protein Albumin Coronavirus (PCR) Detected A 08/22/19 08/22/19 08/22/19 15:36 15:36 16:30 RBC Hgb Hct MCHC Lymphocytes # INR APTT 39.4 H D-Dimer ABG pO2 ABG Total CO2 ABG O2 Saturation Sodium 134 L Potassium 3.3 L BUN 24 H Glucose 180 H POC Glucose (mg/dL) Calcium 7.5 L Magnesium 1.2 L AST 101 H Alkaline Phosphatase Lactate Dehydrogenase Creatine Kinase Troponin I 15.200 H* C-Reactive Protein Total Protein 5.5 L Albumin 2.6 L Coronavirus (PCR) 08/22/19 08/22/19 08/22/19 18:57 20:22 20:58 RBC Hgb Hct MCHC Lymphocytes # INR APTT D-Dimer ABG pO2 ABG Total CO2 ABG O2 Saturation Sodium Potassium BUN Glucose POC Glucose (mg/dL) 183 H 245 H Calcium Magnesium AST Alkaline Phosphatase Lactate Dehydrogenase Creatine Kinase Troponin I 16.500 H* C-Reactive Protein Total Protein Albumin Coronavirus (PCR) 08/23/19 08/23/19 08/23/19 03:31 03:31 03:31 RBC 3.78 L Hgb 11.2 L Hct 33.8 L MCHC Lymphocytes # 0.9 L INR APTT D-Dimer ABG pO2 ABG Total CO2 ABG O2 Saturation Sodium 129 L Potassium BUN 23 H Glucose 218 H POC Glucose (mg/dL) Calcium 8.2 L Magnesium AST 121 H Alkaline Phosphatase Lactate Dehydrogenase Creatine Kinase 669 H Troponin I 17.800 H* C-Reactive Protein Total Protein 5.3 L Albumin 2.6 L Coronavirus (PCR) 08/23/19 08/23/19 08/23/19 03:31 06:05 11:43 RBC Hgb Hct MCHC Lymphocytes # INR APTT 116.0 H* D-Dimer ABG pO2 ABG Total CO2 ABG O2 Saturation Sodium Potassium BUN Glucose POC Glucose (mg/dL) 214 H 167 H Calcium Magnesium AST Alkaline Phosphatase Lactate Dehydrogenase Creatine Kinase Troponin I C-Reactive Protein Total Protein Albumin Coronavirus (PCR) 08/23/19 08/23/19 08/23/19 11:48 16:40 16:56 RBC Hgb Hct MCHC Lymphocytes # INR APTT 54.2 H D-Dimer ABG pO2 ABG Total CO2 ABG O2 Saturation Sodium Potassium BUN Glucose POC Glucose (mg/dL) 233 H 229 H Calcium Magnesium AST Alkaline Phosphatase Lactate Dehydrogenase Creatine Kinase Troponin I C-Reactive Protein Total Protein Albumin Coronavirus (PCR) 08/23/19 08/24/19 08/24/19 20:37 06:01 06:26 RBC Hgb Hct MCHC Lymphocytes # INR APTT 58.9 H D-Dimer ABG pO2 ABG Total CO2 ABG O2 Saturation Sodium Potassium BUN Glucose POC Glucose (mg/dL) 236 H 154 H Calcium Magnesium AST Alkaline Phosphatase Lactate Dehydrogenase Creatine Kinase Troponin I C-Reactive Protein Total Protein Albumin Coronavirus (PCR) 08/24/19 08/24/19 08/24/19 11:11 16:13 20:38 RBC Hgb Hct MCHC Lymphocytes # INR APTT D-Dimer ABG pO2 ABG Total CO2 ABG O2 Saturation Sodium Potassium BUN Glucose POC Glucose (mg/dL) 197 H 308 H 301 H Calcium Magnesium AST Alkaline Phosphatase Lactate Dehydrogenase Creatine Kinase Troponin I C-Reactive Protein Total Protein Albumin Coronavirus (PCR) 08/25/19 08/25/19 08/25/19 02:03 06:17 08:43 RBC 3.31 L Hgb 10.0 L Hct 30.9 L MCHC Lymphocytes # 0.8 L INR APTT D-Dimer ABG pO2 ABG Total CO2 ABG O2 Saturation Sodium Potassium BUN Glucose POC Glucose (mg/dL) 267 H 204 H Calcium Magnesium AST Alkaline Phosphatase Lactate Dehydrogenase Creatine Kinase Troponin I C-Reactive Protein Total Protein Albumin Coronavirus (PCR) 08/25/19 08/25/19 08/25/19 08:43 11:56 17:14 RBC Hgb Hct MCHC Lymphocytes # INR APTT D-Dimer ABG pO2 ABG Total CO2 ABG O2 Saturation Sodium 134 L Potassium BUN Glucose 186 H POC Glucose (mg/dL) 178 H 337 H Calcium 7.8 L Magnesium 1.4 L AST Alkaline Phosphatase 127 H Lactate Dehydrogenase Creatine Kinase Troponin I C-Reactive Protein Total Protein 5.1 L Albumin 2.4 L Coronavirus (PCR) 08/25/19 08/26/19 08/26/19 21:08 02:01 03:35 RBC Hgb Hct MCHC Lymphocytes # INR APTT D-Dimer ABG pO2 ABG Total CO2 ABG O2 Saturation Sodium Potassium BUN Glucose POC Glucose (mg/dL) 368 H 235 H 238 H Calcium Magnesium AST Alkaline Phosphatase Lactate Dehydrogenase Creatine Kinase Troponin I C-Reactive Protein Total Protein Albumin Coronavirus (PCR) 08/26/19 08/26/19 08/26/19 04:02 04:05 04:20 RBC Hgb Hct MCHC Lymphocytes # INR APTT D-Dimer ABG pO2 149 H ABG Total CO2 26 H ABG O2 Saturation 99.2 H Sodium 133 L Potassium BUN Glucose 236 H POC Glucose (mg/dL) 229 H Calcium Magnesium AST Alkaline Phosphatase Lactate Dehydrogenase Creatine Kinase Troponin I C-Reactive Protein Total Protein Albumin Coronavirus (PCR) 08/26/19 08/26/19 08/26/19 04:20 04:20 07:43 RBC 3.36 L Hgb 9.8 L Hct 31.9 L MCHC 30.8 L Lymphocytes # 0.7 L INR APTT D-Dimer ABG pO2 ABG Total CO2 ABG O2 Saturation Sodium Potassium BUN Glucose POC Glucose (mg/dL) 272 H Calcium Magnesium AST Alkaline Phosphatase Lactate Dehydrogenase 1067 H Creatine Kinase Troponin I C-Reactive Protein 166.9 H Total Protein Albumin Coronavirus (PCR) 08/26/19 08/26/19 09:21 12:13 RBC Hgb Hct MCHC Lymphocytes # INR APTT D-Dimer 1.03 H ABG pO2 ABG Total CO2 ABG O2 Saturation Sodium Potassium BUN Glucose POC Glucose (mg/dL) 243 H Calcium Magnesium AST Alkaline Phosphatase Lactate Dehydrogenase Creatine Kinase Troponin I C-Reactive Protein Total Protein Albumin Coronavirus (PCR) - Diagnostic Findings Chest x-ray: image reviewed (As noted in HPI.) CT scan - chest: image reviewed (As noted in HPI.) Assessment and Plan Assessment: Impression: acute hypoxic respiratory failure secondary to covid 19 pneumonia. And secondary to acute pulmonary embolism as well as acute ST elevation myocardial infarction Acute pneumonia secondary to Covid 19 Hypercoagulability secondary to Covid 19 pneumonitis Acute pulmonary embolism, bilateral. Acute ST elevation myocardial infarction High degree AV block may or may not require pacemaker implantation, being followed by cardiology. Ischemic cardiomyopathy and LV dysfunction, ejection fraction is 45%. History of diabetes with diabetic neuropathy Recommendation: Continue present supportive care measures Continue anticoagulation therapy patient is now on Eliquis, aspirin, and Plavix. Continue antibiotics for presumptive superimposed bacterial pneumonia in addition to his Covid 19 pneumonia Monitor daily labs and inflammatory markers. Continue high flow oxygen and titrate accordingly. Resume home meds. We'll continue to monitor closely in the ICU. At this point, the patient does not need to be intubated or mechanically ventilated. Overall prognosis remains guarded, we'll continue to follow Time with Patient: Greater than 30
--- NOTE | 2019-08-26 13:11 | P.PN ---
Subjective This is a pleasant 64-year-old male transferred from [place]. He continues to have abdominal discomfort. He answers yes to all questions about current symptoms, however he continually points to his abdomen when questioned regarding chest pain, dizziness, shortness of breath or palpitations. Blood pressure 99/57 heart rate 68 afebrile and maintaining oxygen saturation on nasal cannula. Laboratory data reviewed, WBC 7.7, hemoglobin 10, platelets 268, sodium 134, potassium 4.2, creatinine 0.72, magnesium 1.4, albumin 2.4. Blood pressure 99/57 heart rate 68 afebrile maintaining oxygen saturation on nasal cannula. Currently maintained on Eliquis 10 mg twice a day, aspirin 81 mg daily, atorvastatin 80 mg daily, Plavix 75 mg daily and Lopressor 12.5 mg twice a day. Telemetry tracings reveal intermittent second degree Wenkeback AV block. GENERAL: Well-appearing, well-nourished and in no acute distress. NECK: Supple without JVD or thyromegaly. LUNGS: Breath sounds clear to auscultation bilaterally. Respiration equal and unlabored. No wheezes, rales or rhonchi. HEART: Regular rate and rhythm without murmurs, rubs or gallops. S1 and S2 heard. EXTREMITIES: Normal range of motion, no edema. No clubbing or cyanosis. Pe ripheral pulses intact. ASSESSMENT Inferior wall myocardial infarction with ST elevations and inferior Q waves Covid 19 Abdominal pain with thickening of the rectal wall with ongoing diarrhea Pneumonitis, bilateral Pulmonary embolism Dyslipidemia PLAN Continue current medical regimen. Hold Lopressor for heart rate of less than 50 and systolic blood pressure was then 100. Ongoing telemetry monitoring. Replace magnesium per protocol. Repeat CT angios of the chest pending. We will continue to follow. Objective - Vital Signs Vital signs: Vital Signs Temp 97.9 F 08/25/19 08:00 Pulse 68 08/25/19 08:00 Resp 16 08/25/19 08:00 BP 99/57 08/25/19 08:00 Pulse Ox 94 L 08/25/19 08:00 Intake & Output 08/24/19 08/25/19 08/25/19 18:59 06:59 18:59 Intake Total 1153.718 640 Output Total 1800 350 1 Balance -646.282 290 -1 Weight 77 kg Intake: Intake, IV Titration 193.718 320 Amount Heparin Sod,Pork in 0.45% 193.718 NaCl 25,000 unit In 0.45 % NaCl 1 250ml.bag @ 18 UNITS/KG/HR 13.472 mls/hr IV .[id number] [facility] Rx#: [id number] Sodium Chloride 0.9% 1, 320 000 ml @ 80 mls/hr IV . [id number] [facility] Rx#:[id number] Oral 960 320 Output: Urine 1800 350 Straight 1100 Stool 1 Other: Voiding Method Indwelling Catheter Indwelling Catheter - Labs CBC & Chem 7: 08/26/19 04:20 08/26/19 04:20 Labs: Abnormal Lab Results - Last 24 Hours (Table) 08/24/19 08/24/19 08/25/19 Range/Units 16:13 20:38 02:03 RBC (4.30-5.90) m/uL Hgb (13.0-17.5) gm/dL Hct (39.0-53.0) % Lymphocytes # (1.0-4.8) k/uL Sodium (137-145) mmol/L Glucose (74-99) mg/dL POC Glucose (mg/dL) 308 H 301 H 267 H (75-99) mg/dL Calcium (8.4-10.2) mg/dL Magnesium (1.6-2.3) mg/dL Alkaline Phosphatase (38-126) U/L Total Protein (6.3-8.2) g/dL Albumin (3.5-5.0) g/dL 08/25/19 08/25/19 08/25/19 Range/Units 06:17 08:43 08:43 RBC 3.31 L (4.30-5.90) m/uL Hgb 10.0 L (13.0-17.5) gm/dL Hct 30.9 L (39.0-53.0) % Lymphocytes # 0.8 L (1.0-4.8) k/uL Sodium 134 L (137-145) mmol/L Glucose 186 H (74-99) mg/dL POC Glucose (mg/dL) 204 H (75-99) mg/dL Calcium 7.8 L (8.4-10.2) mg/dL Magnesium 1.4 L (1.6-2.3) mg/dL Alkaline Phosphatase 127 H (38-126) U/L Total Protein 5.1 L (6.3-8.2) g/dL Albumin 2.4 L (3.5-5.0) g/dL Microbiology - Last 24 Hours (Table) 08/22/19 17:00 Blood Culture - Preliminary Blood No Growth after 48 hours
--- NOTE | 2019-08-26 13:11 | P.PN ---
<Anabell Kendall - Last Filed: 08/26/19 12:42> Subjective This is Anabell Kendall PA-C scribing on behalf of Dr. Romeo The patient was interviewed by Dr. Romeo HPI/interval history patient is a 64-year-old male who was transferred from [facility] due to an abnormal EKG showing ST elevations inferiorly. He was also found to have bilateral pulmonary embolism and pneumonitis. He was found to be coronavirus positive. Yesterday he became hypoxic and was transferred to the ICU. Today his oxygen saturation has improved and he is on 3 L nasal canula. Continues to complain of abdominal pain. EXAMINATION Patient is afebrile, pulse in the 80s, respirations 14, blood pressure 99/67, oxygen saturation 95% on 3 L nasal cannula Patient not examined, as he is Covid positive, visual inspection only, appeared comfortable and not in any acute distress REVIEW OF LABS, ECG WBC 8.5, hemoglobin 9.8, platelets 234, sodium 133, BUN 16, creatinine 0.78 Telemetry reveals heart rates in the 50s with some intermittent AV node Wenckebach block echocardiogram shows EF 45-50%, basal inferior and basal infersoeptal LV wall hypokinesis Venous Doppler shows no DVT IMPRESSION / ASSESSMENT: Inferior wall WI, medical therapy recommended, beta blockers currently on hold Second-degree AV block and bradycardia in the 50s Bilateral pneumonitis Covid pneumonia Pulmonary embolism systemic signs above are typical progression of COVID virus Ischemic cardiomyopathy EF 45-50% Dyslipidemia PLAN: Continue holding beta blockers, will resume once AV block resolves continue statins and aspirin continue anticoagulation Objective - Vital Signs Vital signs: Vital Signs Temp 98.9 F 08/26/19 12:00 Pulse 80 08/26/19 12:00 Resp 14 08/26/19 12:00 BP 99/67 08/26/19 12:00 Pulse Ox 95 08/26/19 12:00 Intake & Output 08/25/19 08/26/19 08/26/19 18:59 06:59 18:59 Intake Total 384 816 3039 Output Total 761 75 125 Balance -942 458 3073 Intake: IV 80 1400 Sodium Chloride 0.9% 1, 80 300 000 ml @ 80 mls/hr IV . [id number] [facility] Rx#:[id number] Sodium Chloride 0.9% 500 500 ml 500 ml @ 999 mls/hr IV .Q31M [facility] Rx#:[id number] Sodium Chloride 0.9% 500 500 ml 500 ml @ 999 mls/hr IV .Q31M [facility] Rx#:[id number] cefTRIAXone 1 gm In 100 Sodium Chloride 0.9% 50 ml @ 100 mls/hr IVPB Q24HR [facility] Rx#:[id number] Oral 360 120 Output: Urine 760 75 125 Stool 1 Other: Voiding Method Indwelling Catheter Indwelling Catheter Indwelling Catheter # Voids 0 1 # Bowel Movements 0 - Labs CBC & Chem 7: 08/26/19 04:20 08/26/19 04:20 Labs: Abnormal Lab Results - Last 24 Hours (Table) 08/25/19 08/25/19 08/26/19 Range/Units 17:14 21:08 02:01 RBC (4.30-5.90) m/uL Hgb (13.0-17.5) gm/dL Hct (39.0-53.0) % MCHC (31.0-37.0) g/dL Lymphocytes # (1.0-4.8) k/uL D-Dimer (<0.60) mg/L FEU ABG pO2 (83-108) mmHg ABG Total CO2 (19-24) mmol/L ABG O2 Saturation (94-97) % Sodium (137-145) mmol/L Glucose (74-99) mg/dL POC Glucose (mg/dL) 337 H 368 H 235 H (75-99) mg/dL Lactate Dehydrogenase (313-618) U/L C-Reactive Protein (<10.0) mg/L 08/26/19 08/26/19 08/26/19 Range/Units 03:35 04:02 04:05 RBC (4.30-5.90) m/uL Hgb (13.0-17.5) gm/dL Hct (39.0-53.0) % MCHC (31.0-37.0) g/dL Lymphocytes # (1.0-4.8) k/uL D-Dimer (<0.60) mg/L FEU ABG pO2 149 H (83-108) mmHg ABG Total CO2 26 H (19-24) mmol/L ABG O2 Saturation 99.2 H (94-97) % Sodium (137-145) mmol/L Glucose (74-99) mg/dL POC Glucose (mg/dL) 238 H 229 H (75-99) mg/dL Lactate Dehydrogenase (313-618) U/L C-Reactive Protein (<10.0) mg/L 08/26/19 08/26/19 08/26/19 Range/Units 04:20 04:20 04:20 RBC 3.36 L (4.30-5.90) m/uL Hgb 9.8 L (13.0-17.5) gm/dL Hct 31.9 L (39.0-53.0) % MCHC 30.8 L (31.0-37.0) g/dL Lymphocytes # 0.7 L (1.0-4.8) k/uL D-Dimer (<0.60) mg/L FEU ABG pO2 (83-108) mmHg ABG Total CO2 (19-24) mmol/L ABG O2 Saturation (94-97) % Sodium 133 L (137-145) mmol/L Glucose 236 H (74-99) mg/dL POC Glucose (mg/dL) (75-99) mg/dL Lactate Dehydrogenase 1067 H (313-618) U/L C-Reactive Protein 166.9 H (<10.0) mg/L 08/26/19 08/26/19 08/26/19 Range/Units 07:43 09:21 12:13 RBC (4.30-5.90) m/uL Hgb (13.0-17.5) gm/dL Hct (39.0-53.0) % MCHC (31.0-37.0) g/dL Lymphocytes # (1.0-4.8) k/uL D-Dimer 1.03 H (<0.60) mg/L FEU ABG pO2 (83-108) mmHg ABG Total CO2 (19-24) mmol/L ABG O2 Saturation (94-97) % Sodium (137-145) mmol/L Glucose (74-99) mg/dL POC Glucose (mg/dL) 272 H 243 H (75-99) mg/dL Lactate Dehydrogenase (313-618) U/L C-Reactive Protein (<10.0) mg/L Microbiology - Last 24 Hours (Table) 08/22/19 17:00 Blood Culture - Preliminary Blood No Growth after 72 hours <Giorgio Romeo - Last Filed: 08/26/19 13:11> Objective - Vital Signs Vital signs: Vital Signs Temp 98.9 F 08/26/19 12:00 Pulse 80 08/26/19 12:00 Resp 14 08/26/19 12:00 BP 99/67 08/26/19 12:00 Pulse Ox 95 08/26/19 12:00 Intake & Output 08/25/19 08/26/19 08/26/19 18:59 06:59 18:59 Intake Total 918 956 6971 Output Total 761 75 125 Balance -538 516 9911 Intake: IV 80 1400 Sodium Chloride 0.9% 1, 80 300 000 ml @ 80 mls/hr IV . [id number] [facility] Rx#:[id number] Sodium Chloride 0.9% 500 500 ml 500 ml @ 999 mls/hr IV .Q31M [facility] Rx#:[id number] Sodium Chloride 0.9% 500 500 ml 500 ml @ 999 mls/hr IV .Q31M [facility] Rx#:[id number] cefTRIAXone 1 gm In 100 Sodium Chloride 0.9% 50 ml @ 100 mls/hr IVPB Q24HR [facility] Rx#:[id number] Oral 360 120 Output: Urine 760 75 125 Stool 1 Other: Voiding Method Indwelling Catheter Indwelling Catheter Indwelling Catheter # Voids 0 1 # Bowel Movements 0 - Labs CBC & Chem 7: 08/26/19 04:20 08/26/19 04:20 Labs: Abnormal Lab Results - Last 24 Hours (Table) 08/25/19 08/25/19 08/26/19 Range/Units 17:14 21:08 02:01 RBC (4.30-5.90) m/uL Hgb (13.0-17.5) gm/dL Hct (39.0-53.0) % MCHC (31.0-37.0) g/dL Lymphocytes # (1.0-4.8) k/uL D-Dimer (<0.60) mg/L FEU ABG pO2 (83-108) mmHg ABG Total CO2 (19-24) mmol/L ABG O2 Saturation (94-97) % Sodium (137-145) mmol/L Glucose (74-99) mg/dL POC Glucose (mg/dL) 337 H 368 H 235 H (75-99) mg/dL Lactate Dehydrogenase (313-618) U/L C-Reactive Protein (<10.0) mg/L 08/26/19 08/26/19 08/26/19 Range/Units 03:35 04:02 04:05 RBC (4.30-5.90) m/uL Hgb (13.0-17.5) gm/dL Hct (39.0-53.0) % MCHC (31.0-37.0) g/dL Lymphocytes # (1.0-4.8) k/uL D-Dimer (<0.60) mg/L FEU ABG pO2 149 H (83-108) mmHg ABG Total CO2 26 H (19-24) mmol/L ABG O2 Saturation 99.2 H (94-97) % Sodium (137-145) mmol/L Glucose (74-99) mg/dL POC Glucose (mg/dL) 238 H 229 H (75-99) mg/dL Lactate Dehydrogenase (313-618) U/L C-Reactive Protein (<10.0) mg/L 08/26/19 08/26/19 08/26/19 Range/Units 04:20 04:20 04:20 RBC 3.36 L (4.30-5.90) m/uL Hgb 9.8 L (13.0-17.5) gm/dL Hct 31.9 L (39.0-53.0) % MCHC 30.8 L (31.0-37.0) g/dL Lymphocytes # 0.7 L (1.0-4.8) k/uL D-Dimer (<0.60) mg/L FEU ABG pO2 (83-108) mmHg ABG Total CO2 (19-24) mmol/L ABG O2 Saturation (94-97) % Sodium 133 L (137-145) mmol/L Glucose 236 H (74-99) mg/dL POC Glucose (mg/dL) (75-99) mg/dL Lactate Dehydrogenase 1067 H (313-618) U/L C-Reactive Protein 166.9 H (<10.0) mg/L 08/26/19 08/26/19 08/26/19 Range/Units 07:43 09:21 12:13 RBC (4.30-5.90) m/uL Hgb (13.0-17.5) gm/dL Hct (39.0-53.0) % MCHC (31.0-37.0) g/dL Lymphocytes # (1.0-4.8) k/uL D-Dimer 1.03 H (<0.60) mg/L FEU ABG pO2 (83-108) mmHg ABG Total CO2 (19-24) mmol/L ABG O2 Saturation (94-97) % Sodium (137-145) mmol/L Glucose (74-99) mg/dL POC Glucose (mg/dL) 272 H 243 H (75-99) mg/dL Lactate Dehydrogenase (313-618) U/L C-Reactive Protein (<10.0) mg/L Microbiology - Last 24 Hours (Table) 08/22/19 17:00 Blood Culture - Preliminary Blood No Growth after 72 hours
[2019-08-26] MEDS ORDERED: FUROSEMIDE 10 MG/ML 10 ML VIAL IV STA (15:27)
[2019-08-26 16:53] LABS: Glucose,Whole Blood 322 mg/dL (75-99)
[2019-08-26 16:53] LABS: Glucose,Whole Blood 270 mg/dL (75-99)
[2019-08-26 20:54] LABS: Glucose,Whole Blood 312 mg/dL (75-99)
[2019-08-26] MEDS ORDERED: INSULIN DETEMIR (LEVEMIR) 100 UNIT/ML SYR SQ SCH (21:00)
[2019-08-26] MEDS: DULoxetine HCL 30 MG CAPSULE.DR PO SCH (21:57)
[2019-08-27 02:01] LABS: Glucose,Whole Blood 367 mg/dL (75-99)
[2019-08-27] MEDS: SODIUM CHLORIDE 0.9% 1,000 ML IV SCH (04:27)
[2019-08-27 05:50] LABS: HCT 30.6 % (39.0-53.0); HGB 9.6 gm/dL (13.0-17.5); Hypochromasia Slight; MCH 29.7 pg (25.0-35.0); MCHC 31.3 g/dL (31.0-37.0); MCV 94.9 fL (80.0-100.0); Mean Platelet Volume 8.2; Platelet Count 250 k/uL (150-450); RBC 3.23 m/uL (4.30-5.90); RDW 13.5 % (11.5-15.5); WBC 7.7 k/uL (3.8-10.6)
--- NOTE | 2019-08-27 06:17 | XR ---
EXAMINATION TYPE: XR chest 1V DATE OF EXAM: 08/27/2019 CLINICAL HISTORY: Covid positive with shortness of breath progress study. TECHNIQUE: Single AP portable upright view of the chest is obtained. COMPARISON: Chest x-ray from one day earlier. CTA chest May 16, 2017 FINDINGS: Persistent elevated right hemidiaphragm. Persistent bilateral multifocal airspace opacitie s. No pleural effusion or pneumothorax seen bilaterally. Cardiac silhouette size stable and upper borges its of normal. Osseous structures are intact. Overlying EKG leads. IMPRESSION: Overall stable findings, elevated right hemidiaphragm with bilateral multifocal acute i nfiltrates redemonstrated.
[2019-08-27 06:22] LABS: African American GFR (CKD) >90 (>60 ml/min/1.73 sqM); Anion Gap 5 mmol/L; Blood Urea Nitrogen 16 mg/dL (9-20); Calcium 8.2 mg/dL (8.4-10.2); Carbon Dioxide 30 mmol/L (22-30); Chloride 98 mmol/L (98-107); Glucose 319 mg/dL (74-99); LDH 928 U/L (313-618); Magnesium 1.4 mg/dL (1.6-2.3); Non-African American GFR(CKD) >90 (>60 ml/min/1.73 sqM); Sodium 133 mmol/L (137-145)
[2019-08-27 06:24] LABS: Band Neutrophils % 3 %; Eosinophils # (M) 0.31 k/uL (0-0.7); Lymphocytes # (M) 1.08 k/uL (1.0-4.8); Monocytes # (M) 0.23 k/uL (0-1.0); Neutrophils % (M) 76 %; Nucleated Red Blood Cells 0 /100 WBC (0-0); Total Cells Counted 100
[2019-08-27 06:25] LABS: Rouleaux Present
[2019-08-27 06:36] LABS: C Reactive Protein 196.3 mg/L (<10.0)
[2019-08-27] MEDS: INSULIN ASPART (NovoLOG) 100 UNIT/ML VIAL SQ SCH ×4 (06:36→20:39)
[2019-08-27 06:40] LABS: Glucose,Whole Blood 328 mg/dL (75-99)
[2019-08-27] MEDS ORDERED: Magnesium Replacement Protocol 1 EACH MISC MISCELLANE PRN (06:40)
[2019-08-27] MEDS: MAGNESIUM SULFATE-D5W PMX 1 GM in DEXTROSE/WATER 1 100ML.BAG IVPB SCH ×3 (06:55→09:28)
[2019-08-27] MEDS: ASPIRIN 81 MG PO SCH (09:00)
[2019-08-27] MEDS: DULoxetine HCL 60 MG CAPSULE.DR PO SCH (09:00)
[2019-08-27] MEDS: GABAPENTIN 300 MG CAP PO SCH ×3 (09:00→20:39)
[2019-08-27] MEDS: CLOPIDOGREL 75 MG TAB PO SCH (09:00)
[2019-08-27] MEDS: APIXABAN 5 MG TAB PO SCH ×2 (09:00→20:34)
[2019-08-27] MEDS: ATORVASTATIN 80 MG TAB PO SCH (09:00)
[2019-08-27] MEDS: AZITHROMYCIN 500 MG TAB PO SCH (09:01)
[2019-08-27] MEDS: ZINC SULFATE 220 MG CAP PO SCH (09:01)
[2019-08-27] MEDS: ATROPINE OPHTH SOLN 1% 5ML BTL LEFT EYE SCH ×2 (09:17→20:37)
[2019-08-27] MEDS: DORZOLAMIDE HCL 2% DROPS 10 ML BTL RIGHT EYE SCH ×2 (09:17→20:37)
[2019-08-27] MEDS: BRIMONIDINE TARTRATE 0.2% DROPS 5 ML BTL RIGHT EYE SCH ×2 (09:17→20:37)
--- NOTE | 2019-08-27 10:41 | P.PN ---
Subjective Progress Note Date: 08/27/19 Principal diagnosis: Chest pain Patient is feeling slightly better overall compared to when he came in. He still having cough and shortness of breath as well as some chest pain. No overnight events. His heart rate and oxygen saturations are improving compared to prior. Oxygen requirements currently at 3 L down from 8. Objective - Vital Signs Vital signs: Vital Signs Temp 98.4 F 08/27/19 04:00 Pulse 96 08/27/19 09:00 Resp 21 08/27/19 09:00 BP 109/65 08/27/19 09:00 Pulse Ox 93 L 08/27/19 09:00 Intake & Output 08/26/19 08/27/19 08/27/19 18:59 06:59 18:59 Intake Total 1880 1040 540 Output Total 1724 2064 100 Balance 155 -1025 440 Weight 75.3 kg Intake: IV 1880 1040 240 Sodium Chloride 0.9% 1, 780 1040 240 000 ml @ 80 mls/hr IV . [id number] [facility] Rx#:[id number] Sodium Chloride 0.9% 500 500 ml 500 ml @ 999 mls/hr IV .Q31M [facility] Rx#:[id number] Sodium Chloride 0.9% 500 500 ml 500 ml @ 999 mls/hr IV .Q31M [facility] Rx#:[id number] cefTRIAXone 1 gm In 100 Sodium Chloride 0.9% 50 ml @ 100 mls/hr IVPB Q24HR [facility] Rx#:[id number] Intake, IV Titration 250 Amount Magnesium Sulfate-D5w Pmx 200 1 gm In Dextrose/Water 1 100ml.bag @ 100 mls/hr IVPB Q1H [facility] Rx#: [id number] cefTRIAXone 1 gm In 50 Sodium Chloride 0.9% 50 ml @ 100 mls/hr IVPB Q24HR [facility] Rx#:[id number] Oral 50 Output: Urine 1724 2064 100 Other: Voiding Method Indwelling Catheter Indwelling Catheter Indwelling Catheter # Bowel Movements 0 - Exam General: [non toxic], [no distress], [appears at stated age] Derm: [warm], [dry] Head: [atraumatic], [normocephalic], [symmetric] Eyes: [EOMI], [no lid lag], [anicteric sclera] Mouth: [no lip lesion], [mucus membranes moist] Cardiovascular: [S1S2 reg], [no murmur], [positive DP pulse bilateral], Lungs: [Decreased breath sounds bilateral], [no rhonchi, no rales] , [no accessory muscle use] Abdominal: [soft], [ nontender to palpation], [no guarding], [no appreciable organomegaly] Ext: [no gross muscle atrophy], [no edema], [no contractures] Neuro: [no focal neuro deficits] Psych: [Alert], [oriented], [appropriate affect] - Labs CBC & Chem 7: 08/27/19 05:13 08/27/19 05:13 Labs: Abnormal Lab Results - Last 24 Hours (Table) 08/26/19 08/26/19 08/26/19 Range/Units 12:13 16:50 16:51 RBC (4.30-5.90) m/uL Hgb (13.0-17.5) gm/dL Hct (39.0-53.0) % D-Dimer (<0.60) mg/L FEU Sodium (137-145) mmol/L Glucose (74-99) mg/dL POC Glucose (mg/dL) 243 H 322 H 270 H (75-99) mg/dL Calcium (8.4-10.2) mg/dL Magnesium (1.6-2.3) mg/dL Lactate Dehydrogenase (313-618) U/L C-Reactive Protein (<10.0) mg/L 08/26/19 08/27/19 08/27/19 Range/Units 20:34 01:41 05:13 RBC 3.23 L (4.30-5.90) m/uL Hgb 9.6 L (13.0-17.5) gm/dL Hct 30.6 L (39.0-53.0) % D-Dimer (<0.60) mg/L FEU Sodium (137-145) mmol/L Glucose (74-99) mg/dL POC Glucose (mg/dL) 312 H 367 H (75-99) mg/dL Calcium (8.4-10.2) mg/dL Magnesium (1.6-2.3) mg/dL Lactate Dehydrogenase (313-618) U/L C-Reactive Protein (<10.0) mg/L 08/27/19 08/27/19 08/27/19 Range/Units 05:13 05:13 06:33 RBC (4.30-5.90) m/uL Hgb (13.0-17.5) gm/dL Hct (39.0-53.0) % D-Dimer 1.46 H (<0.60) mg/L FEU Sodium 133 L (137-145) mmol/L Glucose 319 H (74-99) mg/dL POC Glucose (mg/dL) 328 H (75-99) mg/dL Calcium 8.2 L (8.4-10.2) mg/dL Magnesium 1.4 L (1.6-2.3) mg/dL Lactate Dehydrogenase 928 H (313-618) U/L C-Reactive Protein 196.3 H (<10.0) mg/L Microbiology - Last 24 Hours (Table) 08/22/19 17:00 Blood Culture - Preliminary Blood No Growth after 96 hours Assessment and Plan Plan: ST elevation SC High degree AV block Chronic systolic CHF Bilateral pulmonary emboli COVID pneumonia Hyponatremia Bilateral lower extremity pain Diabetes mellitus with hyperglycemia General weakness Ceftriaxone and azithromycin added by pulmonary to cover for possible bacterial infection Discussed with Dr. Romeo, no indication for pacemaker placement at this point. No indication for heart cath. He will need to be on triple anti-coagulation therapy with aspirin, Plavix as well as eliquis. Continue Lipitor. Hold metoprolol due to bradycardia/AV block. Echocardiogram shows EF 45-50% with hypokinetic wall motion. Would likely benefit from ESTRELLITA inhibitor prior to discharge. O2 per NC to maintain O2 saturation greater than 92%. Currently on 3 L Lantus added, increase to 12 units daily at bedtime due to persistent hyperglycemia Tylenol as needed for fever. Pain control with Tylenol, morphine as needed. Continue home medication of gabapentin and Cymbalta. PT and OT
[2019-08-27 12:00] LABS: Glucose,Whole Blood 226 mg/dL (75-99)
--- NOTE | 2019-08-27 12:56 | P.PN ---
Subjective Progress Note Date: 08/27/19 Principal diagnosis: Acute hypoxic respiratory failure, multifactorial. This is a 63-year-old white male with history of multiple medical problems including diabetes, diabetic neuropathy, degenerative joint disease, patient was transferred on 08/22/19 from [facility] were in he presented with chest pain. He was also complaining of lower extremities pain with symptoms of myalgia. Pain was described as substernal, severe and 9 out of 10 in severity. It was stabbing in nature. He was also complaining of 2 weeks history of dry cough. Also voiced concern that he had intermittent episodes of falling prior to presentation. Never lost his consciousness. His pain was described as associated with diaphoresis. At any rate patient was evaluated at [facility], and his CTA of the chest showed bilateral subsegmental pulmonary embolism and some multilobar interstitial process. Patient was tested for covid 19, and the test was positive. Arrangements were made to transfer patient to [facility], and this was done on 08/21. Patient was seen upon presentation by cardiology and he was felt to have ST elevation myocardial infarction however medical therapy was advised and set of primary angioplasty. Patient was placed on anticoagulation therapy and he was eventually transitioned to Eliquis. It was felt that his symptoms of discomfort have been going on for 3 days prior to presentation to [facility]. Patient was continued on heparin initially, he was also placed on low dose beta blockers, continued on aspirin and nitroglycerin. Patient denied any fever or chills, denied any hemoptysis. Denied any neurological symptoms upon presentation. Last night, the patient had an episode of hypoxia, and his heart rate was dropping down to the 40s. Patient was noted to turn blue and he was very pale and diaphoretic. Hence arrangements were made for the patient to be transferred to the ICU, placed on high flow nasal cannula, and I was asked to see him on consultation. Reviewed all the workup done including his chest x-ray which is clearly consistent with pneumonitis. Reviewed his CT of the chest, suggestive of pulmonary embolism. And reviewed his cardiac workup since admission consistent with acute ST elevation myocardial infarction. Echocardiogram showed ejection fraction of 45%. Labs this morning were unremarkable. ABG this morning on 100% FiO2 showed a pO2 of 149 pCO2 of 44 pH of 7.36. His d-dimer is 1.03. Renal profile is normal. C-reactive protein is 167 and LDH is 1067 blood sugar is 272 Patient was reevaluated today on 08/27/19, patient remains in the ICU, feeling a bit better. Remains on 3 L nasal cannula, O2 saturations 96%. He is hemodynamically stable, urine output remains marginal, received multiple fluid boluses yesterday and he later received Lasix. His IV fluid is at 80 mL/h and it is to be cut down to 50 mL per hour. Chest x-ray continues to show evidence of bilateral interstitial infiltrates. Basically unchanged. Labs including CBC and basic metabolic profile were noted to be normal. Patient had elevated LDH of 928 elevated C-reactive protein of 196 and elevated d-dimer of 1.46 Objective - Vital Signs Vital signs: Vital Signs Temp 98.4 F 08/27/19 04:00 Pulse 96 08/27/19 09:00 Resp 21 08/27/19 09:00 BP 109/65 08/27/19 09:00 Pulse Ox 93 L 08/27/19 09:00 Intake & Output 08/26/19 08/27/19 08/27/19 18:59 06:59 18:59 Intake Total 1880 1040 540 Output Total 1725 2065 100 Balance 155 -1025 440 Weight 75.3 kg Intake: IV 1880 1040 240 Sodium Chloride 0.9% 1, 780 1040 240 000 ml @ 80 mls/hr IV . [id number] [facility] Rx#:[id number] Sodium Chloride 0.9% 500 500 ml 500 ml @ 999 mls/hr IV .Q31M [facility] Rx#:[id number] Sodium Chloride 0.9% 500 500 ml 500 ml @ 999 mls/hr IV .Q31M [facility] Rx#:[id number] cefTRIAXone 1 gm In 100 Sodium Chloride 0.9% 50 ml @ 100 mls/hr IVPB Q24HR [facility] Rx#:[id number] Intake, IV Titration 250 Amount Magnesium Sulfate-D5w Pmx 200 1 gm In Dextrose/Water 1 100ml.bag @ 100 mls/hr IVPB Q1H [facility] Rx#: [id number] cefTRIAXone 1 gm In 50 Sodium Chloride 0.9% 50 ml @ 100 mls/hr IVPB Q24HR [facility] Rx#:[id number] Oral 50 Output: Urine 1725 2065 100 Other: Voiding Method Indwelling Catheter Indwelling Catheter Indwelling Catheter # Bowel Movements 0 - Exam Gen.: Reveals 64-year-old white male in no distress. On 3 L nasal cannula. Head: Atraumatic, normocephalic. HEENT:[Neck is supple.] [No neck masses.] [No thyromegaly.] [No JVD.] PERRLA, EOMI, no icterus. Chest: Symmetrical chest expansion, crackles at the bases bilaterally. No accessory muscles use. Cardiac Exam: [Normal S1 and S2, no S3 gallop, no murmur.] Abdomen: [Soft, nontender, no megaly, no rebound, no guarding, normal bowel so unds.] Extremities: [No clubbing, no edema, no cyanosis.] Good pulses bilaterally. Psychiatric: Normal mood affect and normal mental status examination. Neurological Exam: [No focal neurologic deficit.] Alert and oriented 3. Skin: No rashes. - Labs CBC & Chem 7: 08/27/19 05:13 08/27/19 05:13 Labs: Abnormal Lab Results - Last 24 Hours (Table) 08/26/19 08/26/19 08/26/19 Range/Units 16:50 16:51 20:34 RBC (4.30-5.90) m/uL Hgb (13.0-17.5) gm/dL Hct (39.0-53.0) % D-Dimer (<0.60) mg/L FEU Sodium (137-145) mmol/L Glucose (74-99) mg/dL POC Glucose (mg/dL) 322 H 270 H 312 H (75-99) mg/dL Calcium (8.4-10.2) mg/dL Magnesium (1.6-2.3) mg/dL Lactate Dehydrogenase (313-618) U/L C-Reactive Protein (<10.0) mg/L 08/27/19 08/27/19 08/27/19 Range/Units 01:41 05:13 05:13 RBC 3.23 L (4.30-5.90) m/uL Hgb 9.6 L (13.0-17.5) gm/dL Hct 30.6 L (39.0-53.0) % D-Dimer (<0.60) mg/L FEU Sodium 133 L (137-145) mmol/L Glucose 319 H (74-99) mg/dL POC Glucose (mg/dL) 367 H (75-99) mg/dL Calcium 8.2 L (8.4-10.2) mg/dL Magnesium 1.4 L (1.6-2.3) mg/dL Lactate Dehydrogenase 928 H (313-618) U/L C-Reactive Protein 196.3 H (<10.0) mg/L 08/27/19 08/27/19 08/27/19 Range/Units 05:13 06:33 11:59 RBC (4.30-5.90) m/uL Hgb (13.0-17.5) gm/dL Hct (39.0-53.0) % D-Dimer 1.46 H (<0.60) mg/L FEU Sodium (137-145) mmol/L Glucose (74-99) mg/dL POC Glucose (mg/dL) 328 H 226 H (75-99) mg/dL Calcium (8.4-10.2) mg/dL Magnesium (1.6-2.3) mg/dL Lactate Dehydrogenase (313-618) U/L C-Reactive Protein (<10.0) mg/L Microbiology - Last 24 Hours (Table) 08/22/19 17:00 Blood Culture - Preliminary Blood No Growth after 96 hours Assessment and Plan Assessment: Impression: acute hypoxic respiratory failure secondary to covid [address] elevation LA, and acute pulmonary embolism noted on CT of the chest upon p resentation Acute pneumonia secondary to Covid 19 Hypercoagulability secondary to Covid 19 pneumonitis Acute pulmonary embolism, bilateral. Acute ST elevation myocardial infarction High degree AV block may or may not require pacemaker implantation, being followed by cardiology. Ischemic cardiomyopathy and LV dysfunction, ejection fraction is 45%. History of diabetes with diabetic neuropathy Recommendation: Continue present supportive care measures, we'll monitor for the next 24 hours in the ICU. Continue anticoagulation therapy patient is now on Eliquis, aspirin, and Plavix. Continue antibiotics for presumptive superimposed bacterial pneumonia in addition to his Covid 19 pneumonia Monitor inflammatory markers. Titrate oxygen accordingly to keep saturation above 90% Resume home meds. We'll continue to monitor closely in the ICU. Will follow. Time with Patient: Less than 30
[2019-08-27 15:20] VITALS: BMI 25.9
[2019-08-27] MEDS: LATANOPROST 0.005% OPHTH DROPS 2.5 ML BTL BOTH EYES SCH (20:37)
[2019-08-27] MEDS: DULoxetine HCL 30 MG CAPSULE.DR PO SCH (20:46)
[2019-08-27] MEDS ORDERED: INSULIN DETEMIR (LEVEMIR) 100 UNIT/ML SYR SQ SCH (21:00)
[2019-08-28 05:46] LABS: Basophils % (A) 0 %; Eosinophils % (A) 0 %; HCT 30.7 % (39.0-53.0); HGB 9.4 gm/dL (13.0-17.5); Hypochromasia Slight; Lymphocytes # (A) 0.7 k/uL (1.0-4.8); Lymphocytes % (A) 8 %; MCH 29.1 pg (25.0-35.0); MCHC 30.8 g/dL (31.0-37.0); MCV 94.6 fL (80.0-100.0); Monocytes # (A) 1.1 k/uL (0-1.0); Monocytes % (A) 13 %; Neutrophils # (A) 6.5 k/uL (1.3-7.7); Neutrophils % (A) 76 %; Platelet Count 269 k/uL (150-450); RBC 3.24 m/uL (4.30-5.90); RDW 13.6 % (11.5-15.5); WBC 8.6 k/uL (3.8-10.6)
[2019-08-28 06:01] LABS: African American GFR (CKD) >90 (>60 ml/min/1.73 sqM); Anion Gap 6 mmol/L; Blood Urea Nitrogen 12 mg/dL (9-20); Calcium 8.1 mg/dL (8.4-10.2); Carbon Dioxide 32 mmol/L (22-30); Chloride 95 mmol/L (98-107); Glucose 131 mg/dL (74-99); Magnesium 1.5 mg/dL (1.6-2.3); Non-African American GFR(CKD) >90 (>60 ml/min/1.73 sqM); Potassium 3.9 mmol/L (3.5-5.1); Sodium 133 mmol/L (137-145)
[2019-08-28] MEDS ORDERED: Potassium Replacement Protocol 1 EACH MISC MISCELLANE PRN (06:12)
[2019-08-28] MEDS: INSULIN ASPART (NovoLOG) 100 UNIT/ML VIAL SQ SCH ×2 (06:31→12:37)
[2019-08-28] MEDS ORDERED: POTASSIUM CHLORIDE ER 20 MEQ TAB.ER PO SCH (07:00)
[2019-08-28] MEDS ORDERED: NOREPINEPHRINE 1 MG/ML 4 ML VIAL IV ONE (07:05)
[2019-08-28] MEDS ORDERED: DEXTROSE 5% IN WATER 250 ML BAG IV ONE (07:05)
[2019-08-28] MEDS ORDERED: EPINEPHrine 10 ML SYRINGE (0.1 MG/ML) ONE (07:05)
[2019-08-28 07:45] LABS: Glucose,Whole Blood 240 mg/dL (75-99)
[2019-08-28 07:45] LABS: Glucose,Whole Blood 180 mg/dL (75-99)
[2019-08-28 07:45] LABS: Glucose,Whole Blood 131 mg/dL (75-99)
[2019-08-28] MEDS: MAGNESIUM SULFATE-D5W PMX 1 GM in DEXTROSE/WATER 1 100ML.BAG IVPB SCH ×2 (08:24→13:37)
[2019-08-28] MEDS: ZINC SULFATE 220 MG CAP PO SCH (08:26)
[2019-08-28] MEDS: AZITHROMYCIN 500 MG TAB PO SCH (08:26)
[2019-08-28] MEDS: ATORVASTATIN 80 MG TAB PO SCH (08:26)
[2019-08-28] MEDS: ASPIRIN 81 MG PO SCH (08:26)
[2019-08-28] MEDS: APIXABAN 5 MG TAB PO SCH (08:26)
[2019-08-28] MEDS: DULoxetine HCL 60 MG CAPSULE.DR PO SCH (08:27)
[2019-08-28] MEDS: CLOPIDOGREL 75 MG TAB PO SCH (08:27)
[2019-08-28] MEDS: GABAPENTIN 300 MG CAP PO SCH (08:27)
[2019-08-28] MEDS: ATROPINE OPHTH SOLN 1% 5ML BTL LEFT EYE SCH (08:28)
[2019-08-28] MEDS: DORZOLAMIDE HCL 2% DROPS 10 ML BTL RIGHT EYE SCH (08:29)
[2019-08-28] MEDS: BRIMONIDINE TARTRATE 0.2% DROPS 5 ML BTL RIGHT EYE SCH (08:29)
[2019-08-28] MEDS ORDERED: METOPROLOL TARTRATE 12.5 MG TAB PO SCH (09:00)
--- NOTE | 2019-08-28 11:54 | P.PN ---
<Anabell Kendall - Last Filed: 08/27/19 12:27> Subjective This is Anabell Kendall PA-C scribing on behalf of Dr. Romeo The patient was interviewed by Dr. Romeo HPI/interval history patient is a 64-year-old male who was transferred from [facility] due to an abnormal EKG showing ST elevations inferiorly. He was also found to have bilateral pulmonary embolism and pneumonitis. He was found to be coronavirus positive. Patient remains in the ICU. Remains on 3 L nasal cannula. He is overall feeling better. EXAMINATION Patient is afebrile, pulse in the 90s.respirations of the 20s, blood pressure 109/65, oxygen saturation 93% on 3 L nasal cannula Patient not examined, as he is Covid positive, visual inspection only, appeared comfortable lying flat in bed and not in any acute distress REVIEW OF LABS, ECG Bedside telemetry revealed sinus mechanism with rates in the 90s WBC 7.7, hemoglobin 9.6, platelets 250, sodium 133, potassium 4.0, BUN 16, creatinine 0.8 echocardiogram shows EF 45-50%, basal inferior and basal infersoeptal LV wall hypokinesis Venous Doppler shows no DVT IMPRESSION / ASSESSMENT: Inferior wall OK in the setting of systemic COVID virus infection, medical therapy only at this time, beta blockers remains on hold at this time due to AV block Second-degree AV block and bradycardia in the 50s, improved Covid pneumonia Pulmonary embolism systemic signs above are typical progression of COVID virus Ischemic cardiomyopathy EF 45-50% Dyslipidemia PLAN: continue current medication regimen occluding statins, aspirin, and anticoagulation Continue holding beta blockers for now, will resume once he recovers from coronavirus, may consider restarting tomorrow Objective - Vital Signs Vital signs: Vital Signs Temp 98.4 F 08/27/19 04:00 Pulse 96 08/27/19 09:00 Resp 21 08/27/19 09:00 BP 109/65 08/27/19 09:00 Pulse Ox 93 L 08/27/19 09:00 Intake & Output 08/26/19 08/27/19 08/27/19 18:59 06:59 18:59 Intake Total 1880 1040 540 Output Total 1725 2065 100 Balance 155 -1025 440 Weight 75.3 kg Intake: IV 1880 1040 240 Sodium Chloride 0.9% 1, 780 1040 240 000 ml @ 80 mls/hr IV . [id number] [facility] Rx#:[id number] Sodium Chloride 0.9% 500 500 ml 500 ml @ 999 mls/hr IV .Q31M [facility] Rx#:[id number] Sodium Chloride 0.9% 500 500 ml 500 ml @ 999 mls/hr IV .Q31M [facility] Rx#:[id number] cefTRIAXone 1 gm In 100 Sodium Chloride 0.9% 50 ml @ 100 mls/hr IVPB Q24HR [facility] Rx#:[id number] Intake, IV Titration 250 Amount Magnesium Sulfate-D5w Pmx 200 1 gm In Dextrose/Water 1 100ml.bag @ 100 mls/hr IVPB Q1H [facility] Rx#: [id number] cefTRIAXone 1 gm In 50 Sodium Chloride 0.9% 50 ml @ 100 mls/hr IVPB Q24HR [facility] Rx#:[id number] Oral 50 Output: Urine 1725 2065 100 Other: Voiding Method Indwelling Catheter Indwelling Catheter Indwelling Catheter # Bowel Movements 0 - Labs CBC & Chem 7: 08/27/19 05:13 08/27/19 05:13 Labs: Abnormal Lab Results - Last 24 Hours (Table) 08/26/19 08/26/19 08/26/19 Range/Units 16:50 16:51 20:34 RBC (4.30-5.90) m/uL Hgb (13.0-17.5) gm/dL Hct (39.0-53.0) % D-Dimer (<0.60) mg/L FEU Sodium (137-145) mmol/L Glucose (74-99) mg/dL POC Glucose (mg/dL) 322 H 270 H 312 H (75-99) mg/dL Calcium (8.4-10.2) mg/dL Magnesium (1.6-2.3) mg/dL Lactate Dehydrogenase (313-618) U/L C-Reactive Protein (<10.0) mg/L 08/27/19 08/27/19 08/27/19 Range/Units 01:41 05:13 05:13 RBC 3.23 L (4.30-5.90) m/uL Hgb 9.6 L (13.0-17.5) gm/dL Hct 30.6 L (39.0-53.0) % D-Dimer (<0.60) mg/L FEU Sodium 133 L (137-145) mmol/L Glucose 319 H (74-99) mg/dL POC Glucose (mg/dL) 367 H (75-99) mg/dL Calcium 8.2 L (8.4-10.2) mg/dL Magnesium 1.4 L (1.6-2.3) mg/dL Lactate Dehydrogenase 928 H (313-618) U/L C-Reactive Protein 196.3 H (<10.0) mg/L 08/27/19 08/27/19 08/27/19 Range/Units 05:13 06:33 11:59 RBC (4.30-5.90) m/uL Hgb (13.0-17.5) gm/dL Hct (39.0-53.0) % D-Dimer 1.46 H (<0.60) mg/L FEU Sodium (137-145) mmol/L Glucose (74-99) mg/dL POC Glucose (mg/dL) 328 H 226 H (75-99) mg/dL Calcium (8.4-10.2) mg/dL Magnesium (1.6-2.3) mg/dL Lactate Dehydrogenase (313-618) U/L C-Reactive Protein (<10.0) mg/L Microbiology - Last 24 Hours (Table) 08/22/19 17:00 Blood Culture - Preliminary Blood No Growth after 96 hours <Giorgio Romeo - Last Filed: 08/28/19 11:54> Objective - Vital Signs Vital signs: Vital Signs Temp 98.5 F 08/28/19 08:00 Pulse 104 H 08/28/19 09:00 Resp 13 08/28/19 09:00 BP 91/58 08/28/19 09:00 Pulse Ox 96 08/28/19 09:00 Intake & Output 08/27/19 08/28/19 08/28/19 18:59 06:59 18:59 Intake Total 740 575 300 Output Total 250 320 115 Balance 490 255 185 Weight 75.3 kg 76.2 kg Intake: IV 440 575 300 Magnesium Sulfate-D5w Pmx 100 1 gm In Dextrose/Water 1 100ml.bag @ 100 mls/hr IVPB Q1H [facility] Rx#: [id number] Sodium Chloride 0.9% 1, 440 550 150 000 ml @ 50 mls/hr IV . Q20H [facility] Rx#:[id number] amio 25 cefTRIAXone 1 gm In 50 Sodium Chloride 0.9% 50 ml @ 100 mls/hr IVPB Q24HR [facility] Rx#:[id number] Intake, IV Titration 250 Amount Magnesium Sulfate-D5w Pmx 200 1 gm In Dextrose/Water 1 100ml.bag @ 100 mls/hr IVPB Q1H [facility] Rx#: [id number] cefTRIAXone 1 gm In 50 Sodium Chloride 0.9% 50 ml @ 100 mls/hr IVPB Q24HR [facility] Rx#:[id number] Oral 50 Output: Urine 250 320 115 Other: Voiding Method Indwelling Catheter Indwelling Catheter Indwelling Catheter # Bowel Movements 0 - Labs CBC & Chem 7: 08/28/19 04:45 08/28/19 04:45 Labs: Abnormal Lab Results - Last 24 Hours (Table) 08/27/19 08/27/19 08/27/19 Range/Units 11:59 16:42 20:38 RBC (4.30-5.90) m/uL Hgb (13.0-17.5) gm/dL Hct (39.0-53.0) % MCHC (31.0-37.0) g/dL Lymphocytes # (1.0-4.8) k/uL Monocytes # (0-1.0) k/uL Sodium (137-145) mmol/L Chloride (98-107) mmol/L Carbon Dioxide (22-30) mmol/L Glucose (74-99) mg/dL POC Glucose (mg/dL) 226 H 240 H 180 H (75-99) mg/dL Calcium (8.4-10.2) mg/dL Magnesium (1.6-2.3) mg/dL 08/28/19 08/28/19 08/28/19 Range/Units 04:45 04:45 06:05 RBC 3.24 L (4.30-5.90) m/uL Hgb 9.4 L (13.0-17.5) gm/dL Hct 30.7 L (39.0-53.0) % MCHC 30.8 L (31.0-37.0) g/dL Lymphocytes # 0.7 L (1.0-4.8) k/uL Monocytes # 1.1 H (0-1.0) k/uL Sodium 133 L (137-145) mmol/L Chloride 95 L (98-107) mmol/L Carbon Dioxide 32 H (22-30) mmol/L Glucose 131 H (74-99) mg/dL POC Glucose (mg/dL) 131 H (75-99) mg/dL Calcium 8.1 L (8.4-10.2) mg/dL Magnesium 1.5 L (1.6-2.3) mg/dL Microbiology - Last 24 Hours (Table) 08/22/19 17:00 Blood Culture - Preliminary Blood No Growth after 120 hours
[2019-08-28 12:17] LABS: Glucose,Whole Blood 196 mg/dL (75-99)
--- NOTE | 2019-08-28 12:19 | P.PN ---
Subjective This is Anabell Kendall PA-C scribing on behalf of Dr. Romeo The patient was interviewed by Dr. Romeo HPI/interval history patient is a 64-year-old male who was transferred from [facility] due to an abnormal EKG showing ST elevations inferiorly. He was also found to have bilateral pulmonary embolism and pneumonitis. He was found to be coronavirus positive. Patient remains in the ICU. Remains on 3 L nasal cannula. He was initially bradycardic and had second-degree AV block today his pulse has been been in the 90s to low 100s EXAMINATION Patient is afebrile, pulse in the 100s, respirations 13, blood pressure 91/58, oxygen saturation 96% on 3 L nasal cannula Patient not examined, as he is Covid positive, visual inspection only, appeared comfortable sitting up in the chair REVIEW OF LABS, ECG WBC 8.6, hemoglobin 9.4, platelets. 269, potassium 3.9, BUN 12, creatinine 0.7 echocardiogram shows EF 45-50%, basal inferior and basal infersoeptal LV wall hypokinesis Venous Doppler shows no DVT IMPRESSION / ASSESSMENT: Inferior wall IA in the setting of systemic COVID virus infection, medical therapy only at this time Second-degree AV block and bradycardia in the 50s, improved, pulse currently in the 90s to 100s Covid pneumonia Pulmonary embolism systemic signs above are typical progression of COVID virus Ischemic cardiomyopathy EF 45-50% Dyslipidemia PLAN: Initiate low-dose metoprolol continue current medication regimen including statins, aspirin, and anticoagulation Objective - Vital Signs Vital signs: Vital Signs Temp 98.5 F 08/28/19 08:00 Pulse 104 H 08/28/19 09:00 Resp 13 08/28/19 09:00 BP 91/58 08/28/19 09:00 Pulse Ox 96 08/28/19 09:00 Intake & Output 08/27/19 08/28/19 08/28/19 18:59 06:59 18:59 Intake Total 740 575 300 Output Total 250 320 115 Balance 490 255 185 Weight 75.3 kg 76.2 kg Intake: IV 440 575 300 Magnesium Sulfate-D5w Pmx 100 1 gm In Dextrose/Water 1 100ml.bag @ 100 mls/hr IVPB Q1H [facility] Rx#: [id number] Sodium Chloride 0.9% 1, 440 550 150 000 ml @ 50 mls/hr IV . Q20H [facility] Rx#:[id number] amio 25 cefTRIAXone 1 gm In 50 Sodium Chloride 0.9% 50 ml @ 100 mls/hr IVPB Q24HR [facility] Rx#:[id number] Intake, IV Titration 250 Amount Magnesium Sulfate-D5w Pmx 200 1 gm In Dextrose/Water 1 100ml.bag @ 100 mls/hr IVPB Q1H [facility] Rx#: [id number] cefTRIAXone 1 gm In 50 Sodium Chloride 0.9% 50 ml @ 100 mls/hr IVPB Q24HR [facility] Rx#:[id number] Oral 50 Output: Urine 250 320 115 Other: Voiding Method Indwelling Catheter Indwelling Catheter Indwelling Catheter # Bowel Movements 0 - Labs CBC & Chem 7: 08/28/19 04:45 08/28/19 04:45 Labs: Abnormal Lab Results - Last 24 Hours (Table) 08/27/19 08/27/19 08/28/19 Range/Units 16:42 20:38 04:45 RBC 3.24 L (4.30-5.90) m/uL Hgb 9.4 L (13.0-17.5) gm/dL Hct 30.7 L (39.0-53.0) % MCHC 30.8 L (31.0-37.0) g/dL Lymphocytes # 0.7 L (1.0-4.8) k/uL Monocytes # 1.1 H (0-1.0) k/uL Sodium (137-145) mmol/L Chloride (98-107) mmol/L Carbon Dioxide (22-30) mmol/L Glucose (74-99) mg/dL POC Glucose (mg/dL) 240 H 180 H (75-99) mg/dL Calcium (8.4-10.2) mg/dL Magnesium (1.6-2.3) mg/dL 08/28/19 08/28/19 08/28/19 Range/Units 04:45 06:05 12:15 RBC (4.30-5.90) m/uL Hgb (13.0-17.5) gm/dL Hct (39.0-53.0) % MCHC (31.0-37.0) g/dL Lymphocytes # (1.0-4.8) k/uL Monocytes # (0-1.0) k/uL Sodium 133 L (137-145) mmol/L Chloride 95 L (98-107) mmol/L Carbon Dioxide 32 H (22-30) mmol/L Glucose 131 H (74-99) mg/dL POC Glucose (mg/dL) 131 H 196 H (75-99) mg/dL Calcium 8.1 L (8.4-10.2) mg/dL Magnesium 1.5 L (1.6-2.3) mg/dL Microbiology - Last 24 Hours (Table) 08/22/19 17:00 Blood Culture - Preliminary Blood No Growth after 120 hours
[2019-08-28] MEDS: SODIUM CHLORIDE 0.9% 1,000 ML IV SCH (13:38)
--- NOTE | 2019-08-28 13:40 | P.PN ---
Subjective Progress Note Date: 08/28/19 Principal diagnosis: Acute hypoxic respiratory failure, multifactorial. This is a 63-year-old white male with history of multiple medical problems including diabetes, diabetic neuropathy, degenerative joint disease, patient was transferred on 08/22/19 from [facility] were in he presented with chest pain. He was also complaining of lower extremities pain with symptoms of myalgia. Pain was described as substernal, severe and 9 out of 10 in severity. It was stabbing in nature. He was also complaining of 2 weeks history of dry cough. Also voiced concern that he had intermittent episodes of falling prior to presentation. Never lost his consciousness. His pain was described as associated with diaphoresis. At any rate patient was evaluated at [facility], and his CTA of the chest showed bilateral subsegmental pulmonary embolism and some multilobar interstitial process. Patient was tested for covid 19, and the test was positive. Arrangements were made to transfer patient to [facility], and this was done on 08/21. Patient was seen upon presentation by cardiology and he was felt to have ST elevation myocardial infarction however medical therapy was advised and set of primary angioplasty. Patient was placed on anticoagulation therapy and he was eventually transitioned to Eliquis. It was felt that his symptoms of discomfort have been going on for 3 days prior to presentation to [facility]. Patient was continued on heparin initially, he was also placed on low dose beta blockers, continued on aspirin and nitroglycerin. Patient denied any fever or chills, denied any hemoptysis. Denied any neurological symptoms upon presentation. Last night, the patient had an episode of hypoxia, and his heart rate was dropping down to the 40s. Patient was noted to turn blue and he was very pale and diaphoretic. Hence arrangements were made for the patient to be transferred to the ICU, placed on high flow nasal cannula, and I was asked to see him on consultation. Reviewed all the workup done including his chest x-ray which is clearly consistent with pneumonitis. Reviewed his CT of the chest, suggestive of pulmonary embolism. And reviewed his cardiac workup since admission consistent with acute ST elevation myocardial infarction. Echocardiogram showed ejection fraction of 45%. Labs this morning were unremarkable. ABG this morning on 100% FiO2 showed a pO2 of 149 pCO2 of 44 pH of 7.36. His d-dimer is 1.03. Renal profile is normal. C-reactive protein is 167 and LDH is 1067 blood sugar is 272 Patient was reevaluated today on 08/27/19, patient remains in the ICU, feeling a bit better. Remains on 3 L nasal cannula, O2 saturations 96%. He is hemodynamically stable, urine output remains marginal, received multiple fluid boluses yesterday and he later received Lasix. His IV fluid is at 80 mL/h and it is to be cut down to 50 mL per hour. Chest x-ray continues to show evidence of bilateral interstitial infiltrates. Basically unchanged. Labs including CBC and basic metabolic profile were noted to be normal. Patient had elevated LDH of 928 elevated C-reactive protein of 196 and elevated d-dimer of 1.46 Patient was reevaluated today on 08/28/19. Patient remains in the ICU, but he seems to be hemodynamically stable, he is on 3 L nasal cannula, maintaining a O2 saturation of 94%. Patient denies any chest pain, he has occasional cough, no wheezing, no fever, no chills, no hemoptysis. Chest x-ray continues to show small bibasilar infiltrates. Patient is being treated for acute pulmonary embolism, acute myocardial infarction, and Covid 19 pneumonitis. Labs today including CBC and basic metabolic profile are noted to be unremarkable. Objective - Vital Signs Vital signs: Vital Signs Temp 98.5 F 08/28/19 08:00 Pulse 104 H 08/28/19 09:00 Resp 13 08/28/19 09:00 BP 91/58 08/28/19 09:00 Pulse Ox 96 08/28/19 09:00 Intake & Output 08/27/19 08/28/19 08/28/19 18:59 06:59 18:59 Intake Total 740 575 300 Output Total 250 320 115 Balance 490 255 185 Weight 75.3 kg 76.2 kg Intake: IV 440 575 300 Magnesium Sulfate-D5w Pmx 100 1 gm In Dextrose/Water 1 100ml.bag @ 100 mls/hr IVPB Q1H [facility] Rx#: [id number] Sodium Chloride 0.9% 1, 440 550 150 000 ml @ 50 mls/hr IV . Q20H [facility] Rx#:[id number] amio 25 cefTRIAXone 1 gm In 50 Sodium Chloride 0.9% 50 ml @ 100 mls/hr IVPB Q24HR [facility] Rx#:[id number] Intake, IV Titration 250 Amount Magnesium Sulfate-D5w Pmx 200 1 gm In Dextrose/Water 1 100ml.bag @ 100 mls/hr IVPB Q1H [facility] Rx#: [id number] cefTRIAXone 1 gm In 50 Sodium Chloride 0.9% 50 ml @ 100 mls/hr IVPB Q24HR [facility] Rx#:[id number] Oral 50 Output: Urine 250 320 115 Other: Voiding Method Indwelling Catheter Indwelling Catheter Indwelling Catheter # Bowel Movements 0 - Exam Gen.: Reveals 64-year-old white male in no distress. On 3 L nasal cannula. Asymptomatic, in no distress Head: Atraumatic, normocephalic. HEENT:[Neck is supple.] [No neck masses.] [No thyromegaly.] [No JVD.] PERRLA, EOMI, no icterus. Chest: Symmetrical chest expansion, crackles at the bases bilaterally. No accessory muscles use. Cardiac Exam: [Normal S1 and S2, no S3 gallop, no murmur.] Abdomen: [Soft, nontender, no megaly, no rebound, no guarding, normal bowel sounds.] Extremities: [No clubbing, no edema, no cyanosis.] Good pulses bilaterally. Psychiatric: Normal mood affect and normal mental status examination. Neurological Exam: [No focal neurologic deficit.] Alert and oriented 3. Skin: No rashes. - Labs CBC & Chem 7: 08/28/19 04:45 08/28/19 04:45 Labs: Abnormal Lab Results - Last 24 Hours (Table) 08/27/19 08/27/19 08/28/19 Range/Units 16:42 20:38 04:45 RBC 3.24 L (4.30-5.90) m/uL Hgb 9.4 L (13.0-17.5) gm/dL Hct 30.7 L (39.0-53.0) % MCHC 30.8 L (31.0-37.0) g/dL Lymphocytes # 0.7 L (1.0-4.8) k/uL Monocytes # 1.1 H (0-1.0) k/uL Sodium (137-145) mmol/L Chloride (98-107) mmol/L Carbon Dioxide (22-30) mmol/L Glucose (74-99) mg/dL POC Glucose (mg/dL) 240 H 180 H (75-99) mg/dL Calcium (8.4-10.2) mg/dL Magnesium (1.6-2.3) mg/dL 08/28/19 08/28/19 08/28/19 Range/Units 04:45 06:05 12:15 RBC (4.30-5.90) m/uL Hgb (13.0-17.5) gm/dL Hct (39.0-53.0) % MCHC (31.0-37.0) g/dL Lymphocytes # (1.0-4.8) k/uL Monocytes # (0-1.0) k/uL Sodium 133 L (137-145) mmol/L Chloride 95 L (98-107) mmol/L Carbon Dioxide 32 H (22-30) mmol/L Glucose 131 H (74-99) mg/dL POC Glucose (mg/dL) 131 H 196 H (75-99) mg/dL Calcium 8.1 L (8.4-10.2) mg/dL Magnesium 1.5 L (1.6-2.3) mg/dL Microbiology - Last 24 Hours (Table) 08/22/19 17:00 Blood Culture - Preliminary Blood No Growth after 120 hours Assessment and Plan Assessment: Impression: acute hypoxic respiratory failure secondary to covid [address] elevation GA, and acute pulmonary embolism noted on CT of the chest upon presentation Acute pneumonia secondary to Covid 19 Hypercoagulability secondary to Covid 19 pneumonitis Acute pulmonary embolism, bilateral. Acute ST elevation myocardial infarction High degree AV block may or may not require pacemaker implantation, being followed by cardiology. Ischemic cardiomyopathy and LV dysfunction, ejection fraction is 45%. History of diabetes with diabetic neuropathy Recommendation: Continue present supportive care measures, transfer patient today out of the ICU to a monitor bed on the cardiology floor. Continue anticoagulation therapy patient is now on Eliquis, aspirin, and Plavix. Continue antibiotics for presumptive superimposed bacterial pneumonia in addition to his Covid 19 pneumonia Monitor inflammatory markers. Titrate oxygen accordingly to keep saturation above 90% Possible discharge planning early next week. Once cleared by cardiology. We'll continue to follow. Time with Patient: Less than 30
[2019-08-28 15:52] VITALS: BP 110/98; TEMP 98.1
[2019-08-28 16:41] LABS: Glucose,Whole Blood 248 mg/dL (75-99)
--- NOTE | 2019-08-28 18:24 | P.PN ---
Subjective Progress Note Date: 08/28/19 (delayed charting seen at 1230) Principal diagnosis: chest pain Patient is a 63-year-old male with known diabetes mellitus type 2 who was transferred here from [facility] secondary to non ST segment elevated myocardial infarction. At [facility] underwent a CT of the chest which showed possible subacute segmental pulmonary emboli and multilobar i nterstitial process. EKG done there did show some Q waves. He was transferred here for cardiology evaluation. On arrival here he was found to have a troponin of 15.2, sodium 134, potassium 3.3, and elevated blood sugar of 180. Covid testing was positive. In the ER here he received nitroglycerin and oral beta blockers and had a drop in his blood pressure. He was seen by Dr. Main of cardiology in the emergency department and diagnosed with acute myocardial injury with ST segment elevation with Q waves, bilateral Covid 19 pneumonitis, and pulmonary embolism. They recommended IV heparin, aspirin, and statin. They also recommend avoiding nitroglycerin. He recommended the patient be treated medically and not taken to the [employer]. The night after admission had ongoing hypotension. He underwent an echocardiogram which showed an ejection fraction of 45-50% with hypokinesis. Lower extremity venous Doppler without signs of DVT. His heparin drip was discontinued and he was started on Eliquis per PE protocol, he was started on Plavix for myocardial infarction. Cardiology recomm ended triple therapy for 1 month and then discontinuing aspirin. He did develop recurrent hypotensive bradycardia well and the ICU. He was seen by cardiology and diagnosed with second degree AV block at that point in time as beta blockers were held. The morning of 08/27 he had improvement in his blood pressure and was a longer bradycardic. He was restarted on low-dose metoprolol by cardiology. Patient seen and examined at bedside. He states that his chest pain is now 5 out of 10 in significantly better, he continues to have some shortness of breath, no nausea, no vomiting, and diarrhea is improved. Objective - Vital Signs Vital signs: Vital Signs Temp 98.1 F 08/28/19 15:00 Pulse 96 08/28/19 15:00 Resp 18 08/28/19 15:00 BP 110/98 08/28/19 15:00 Pulse Ox 96 08/28/19 15:00 Intake & Output 08/27/19 08/28/1908/27/20 18:59 06:59 18:59 Intake Total 740 575 350 Output Total 250 320 235 Balance 490 255 115 Weight 75.3 kg 76.2 kg Intake: IV 440 575 350 Magnesium Sulfate-D5w Pmx 100 1 gm In Dextrose/Water 1 100ml.bag @ 100 mls/hr IVPB Q1H ROXI Rx#: [id number] Sodium Chloride 0.9% 1, 440 550 200 000 ml @ 50 mls/hr IV . Q20H ROXI Rx#:[id number] amio 25 cefTRIAXone 1 gm In 50 Sodium Chloride 0.9% 50 ml @ 100 mls/hr IVPB Q24HR ROXI Rx#:[id number] Intake, IV Titration 250 Amount Magnesium Sulfate-D5w Pmx 200 1 gm In Dextrose/Water 1 100ml.bag @ 100 mls/hr IVPB Q1H ROXI Rx#: [id number] cefTRIAXone 1 gm In 50 Sodium Chloride 0.9% 50 ml @ 100 mls/hr IVPB Q24HR ROXI Rx#:[id number] Oral 50 Output: Urine 250 320 235 Other: Voiding Method Indwelling Catheter Indwelling Catheter Indwelling Catheter # Bowel Movements 0 - Exam General: non toxic, no distress, [appears older than stated age Derm: warm, dry Head: atraumatic, normocephalic, symmetric Eyes: EOMI, no lid lag, anicteric sclera Mouth: no lip lesion, mucus membranes moist Cardiovascular: S1S2 reg, no murmur, positive posterior tibial pulse bilateral, Lungs: crackles bilateral bases , no accessory muscle use Abdominal: soft, nontender to palpation, no guarding, no appreciable organomegaly Ext: no gross muscle atrophy, 1+ edema, no contractures Neuro: CN II-XI grossly intact, no focal neuro deficits Psych: Alert, oriented, appropriate affect - Labs CBC & Chem 7: 08/28/19 04:45 08/28/19 04:45 Labs: Abnormal Lab Results - Last 24 Hours (Table) 08/27/19 08/27/19 08/28/19 Range/Units 16:42 20:38 04:45 RBC 3.24 L (4.30-5.90) m/uL Hgb 9.4 L (13.0-17.5) gm/dL Hct 30.7 L (39.0-53.0) % MCHC 30.8 L (31.0-37.0) g/dL Lymphocytes # 0.7 L (1.0-4.8) k/uL Monocytes # 1.1 H (0-1.0) k/uL Sodium (137-145) mmol/L Chloride (98-107) mmol/L Carbon Dioxide (22-30) mmol/L Glucose (74-99) mg/dL POC Glucose (mg/dL) 240 H 180 H (75-99) mg/dL Calcium (8.4-10.2) mg/dL Magnesium (1.6-2.3) mg/dL 08/28/19 08/28/19 08/28/19 Range/Units 04:45 06:05 12:15 RBC (4.30-5.90) m/uL Hgb (13.0-17.5) gm/dL Hct (39.0-53.0) % MCHC (31.0-37.0) g/dL Lymphocytes # (1.0-4.8) k/uL Monocytes # (0-1.0) k/uL Sodium 133 L (137-145) mmol/L Chloride 95 L (98-107) mmol/L Carbon Dioxide 32 H (22-30) mmol/L Glucose 131 H (74-99) mg/dL POC Glucose (mg/dL) 131 H 196 H (75-99) mg/dL Calcium 8.1 L (8.4-10.2) mg/dL Magnesium 1.5 L (1.6-2.3) mg/dL 08/28/19 Range/Units 16:38 RBC (4.30-5.90) m/uL Hgb (13.0-17.5) gm/dL Hct (39.0-53.0) % MCHC (31.0-37.0) g/dL Lymphocytes # (1.0-4.8) k/uL Monocytes # (0-1.0) k/uL Sodium (137-145) mmol/L Chloride (98-107) mmol/L Carbon Dioxide (22-30) mmol/L Glucose (74-99) mg/dL POC Glucose (mg/dL) 248 H (75-99) mg/dL Calcium (8.4-10.2) mg/dL Magnesium (1.6-2.3) mg/dL Microbiology - Last 24 Hours (Table) 08/22/19 17:00 Blood Culture - Preliminary Blood No Growth after 120 hours Assessment and Plan Assessment: COVID19 infection associated with [address] segment elevated myocardial infarction and pulmonary embolism consistent with hypercoagulable state to the Kovic 19, gastroenteritis, and pneumonia -Continue with aspirin, Plavix, and Eliquis -Lipitor -On low-dose beta hal will need to monitor heart rate closely -Cardiology recommendations appreciated -Pulmonary recommendations appreciated -Continue with careful fluid monitoring -If blood pressure stabilizes ultimately would benefit from ACEI/ARB - Repeat CRP, LDH, Liver enzymes in AM - Check Ferritin level Ischemic cardiomyopathy with ejection fraction 45-50%, Second-degree AV block with bradycardia -If blood pressure stabilizes ultimately would benefit from ACEI/ARB - Metoprolol - Cardio recs appreciated - careful fluid management Hyponatremia Diabetes mellitus with hyperglycemia with neuropathy - Check A1C -Metformin, glipizide on hold -Continue with long-acting and sliding scale insulin -Continue Neurontin Anemia, - Appears chronic and at baseline - Follow CBC, no indication for transfusion at this time - Ferritin likely to be elevated from COVID. Recommned testing as outpatient once infection improved. DVT prophylaxis: joaquin Discussed with: patient, nursing Anticipated discharge: 2-[address]: SNF A total of 45 minutes was spent on the care of this complex patient more than 50% of the time was spent in counseling and care coordination.
[2019-08-28 18:49] LABS: Glucose,Whole Blood 279 mg/dL (75-99)
[2019-08-28] MEDS ORDERED: MIDAZOLAM 1 MG/ML 5 ML VIAL IV STA (19:01)
[2019-08-28] MEDS ORDERED: HEPARIN SODIUM,PORCINE 5,000 UNIT/ML 1 ML VIAL IV PRN (19:02)
[2019-08-28] MEDS ORDERED: HEPARIN SODIUM,PORCINE 10,000 UNIT/ML 1 ML VIAL IV ONE (19:02)
[2019-08-28] MEDS ORDERED: PROPOFOL 1,000 MG in EMPTY BAG 1 BAG IV SCH (19:15)
[2019-08-28] MEDS ORDERED: HEPARIN SOD,PORK IN 0.45% NACL 25,000 UNIT in 0.45% NACL 1 250ML.BAG IV SCH (19:15)
[2019-08-28] MEDS ORDERED: MIDAZOLAM 2 MG/2 ML VIAL IV STA (19:30)
--- NOTE | 2019-08-28 19:55 | XR ---
EXAMINATION TYPE: XR chest 1V portable DATE OF EXAM: 08/28/2019 Comparison: 08/27/2019 Clinical History: 64-year-old male Tube placement Findings: ET tube tip 3.1 cm from the emilio. Heart borderline in size. Increasing patchy and confluent multifo lukasz bilateral airspace opacities. No pleural effusion. Impression: 1. Satisfactory ET tube. 2. Increasing patchy and confluent multifocal airspace disease.
--- NOTE | 2019-08-28 20:01 | P.EN ---
ZULEMA BLUE note: CODE BLUE called overhead Arrived to the unit to find CPR being started, patient was being hooked up to the monitor. Apparently the patient had been having a bladder scan when he became unresponsive. Review of telemetry showed asystole. Patient was put monitor and received 1 dose of epinephrine and an amp of sodium bicarb. Repeat pulse check showed no pulses but PE and the monitor. She received an additional dose of epinephrine and regained runoff with elevated blood pressure. During the first episode of CPR he was intubated by the PRE FABRICATOR and there is good color change. He was immediately moved to the ICU. He was subsequently with initial settings of PEEP of 5, FiO2 100%, rate 22, and tidal volume of 450. His pulse ox was noted to be at 80% and I asked him to increase the PEEP to 8. Patient was awakened bucking the vent 5 of Versed was ordered Dr. Li was notified. He will order propofol. I left the room he started becoming hypoxic and bradycardic. Again a ZULEMA RUGGIERO was called and PEA was noted on the monitor. CPR was again initiated he got 1 dose of appendectomy and one amp of bicarb. Ross was achieved. As her blood pressure was 88/62. He had 1 L of normal saline running in. He initially was very difficult to get up pulse ox on but it appeared to be 80%. At that point in time PEEP was unable to be increased secondary to hypotension. Levothyroid was ordered secondary to his hypotension. Repeat EKG, CBC, CMP, mag, 5, troponin, and ABG ordered. Dr. Branham updated by nursing. We are currently primary. Sign out given to lashanda. Sister contacted by nursing. Patient was made DNR. Sister told we would call if patient coded again. Total amount of critical care time 65 minutes.
[2019-08-28 20:06] LABS: Allen Test Performed? Yes
[2019-08-28 20:07] LABS: ABG Base Excess -4.6 mmol/L; ABG HCO3 24 mmol/L (21-25); ABG PCO2 68 mmHg (35-45); ABG PH 7.16 (7.35-7.45); ABG TCO2 26 mmol/L (19-24)
[2019-08-28 20:50] VITALS: RESP 9
[2019-08-28] MEDS ORDERED: CHLORHEXIDINE GLUCONATE 15 ML CUP MUCOUS MEM SCH (21:00)
[2019-08-28] MEDS ORDERED: INSULIN DETEMIR (LEVEMIR) 100 UNIT/ML SYR SQ SCH (21:00)
[2019-08-28 22:27] VITALS: PULSE 130
--- NOTE | 2019-08-29 07:40 | P.DS ---
Providers Date of admission: 08/22/19 16:42 Expected date of discharge: 08/29/19 Attending physician: Ovi Robledo MD Consults: 08/22/19 16:42 Consult Physician Stat Consulting Provider: Giorgio Romeo Consult Reason/Comments: elevated troponin Do you want consulting provider notified?: Already Contacted 08/26/19 03:47 Consult Physician Stat Consulting Provider: Linda Branham Consult Reason/Comments: Respiratory distress, COVID + Do you want consulting provider notified?: Yes, Notify in am Primary care physician: Physician Nonstaff Hospital Course: Discharge Diagnosis: Cardiac Arrest COVID19 infection associated with ST segment elevated myocardial infarction and pulmonary embolism consistent with hypercoagulable state due COVID 19 gastroenteritis COVID 19 pneumonia Ischemic cardiomyopathy with ejection fraction 45-50%, Second-degree AV block with bradycardia Hyponatremia Anemia, Hypomagnesemia Hospital Course: Patient is a 64-year-old male with known diabetes mellitus type 2 who was transferred here from [facility] secondary to non ST segment elevated myocardial infarction. At [facility] underwent a CTA of the chest which showed possible subsegmental pulmonary emboli and multilobar interstitial process. EKG done there did show some Q waves. He was transferred here for cardiology evaluation. On arrival here he was found to have a troponin of 15.2, sodium 134, potassium 3.3, and elevated blood sugar of 180. Covid-19 testing was positive. In the ER here he received nitroglycerin and oral beta blockers and had a drop in his blood pressure. He was seen by Dr. Main of cardiology in the emergency department and diagnosed with acute myocardial injury with ST segment elevation with Q waves, bilateral Covid 19 pneumonitis, and pulmonary embolism. They started IV heparin, aspirin, and statin. Cardiology also recommend avoiding nitroglycerin. He recommended the patient be treated medically and not taken to the [employer]. The night after admission had ongoing hypotension requiring multiple fluid bolus. He underwent an echocardiogram which showed an ejection fraction of 45-50% with hypokinesis. Lower extremity venous Doppler without signs of DVT. His heparin drip was discontinued and he was started on Eliquis per PE protocol, he was started on Plavix for myocardial infarction. Cardiology recommended triple therapy for 1 month and then discontinuing aspirin. He did develop recurrent hypotension and bradycardia well and the ICU. He was seen by cardiology and diagnosed with second degree AV block at that point in time as beta blockers were held. He was slow improving and walking around the unit. The morning of 08/27 he had improvement in his blood pressure and was no longer bradycardic. He was restarted on low-dose metoprolol by cardiology. He was transferred out of the ICU and to our selective care unit. On the evening of 08/28/2019 a quintin blue was called and he underwent CPR with Epi X1 and bicarb, he was intubated and achieved ROSC, he was transferred to the ICU. Initially he was showing signs of responsiveness and moving and biting the tube. He was given some versed. Dr. Branham called back. He was noted to have lowering SPO2 levels despite being on the vent with 100% FiO2 and 8 of PEEP. He quickly became bradycardic and arrested again. He received 1 dose of epi and 1 of bicarb and again achieved ROSC with A fib with RVR noted on the monitor. Sister was contacted and he was made a DNR. He again lost pulses and passed at 2018. Sister notified by night nursing staff. A total of 25 minutes of time were spent preparing this complex discharge summary . Patient Condition at Discharge: Stable Plan - Discharge Summary Discharge Rx Participant: No New Discharge Prescriptions: No Action rOPINIRole HCL [Requip] 1 mg PO HS Magnesium Oxide [Mag-Ox] 400 mg PO TID DULoxetine HCL [Cymbalta] 60 mg PO BID metFORMIN HCL 1,000 mg PO BID Gabapentin [Neurontin] 300 mg PO BID Alogliptin Benzoate [Alogliptin] 12.5 mg PO DAILY Aspirin EC [Ecotrin Low Dose] 81 mg PO DAILY Atropine Ophth Soln 1% 5Ml [Isopto Atropine 1% 5Ml] 1 drops LEFT EYE BID Brinzolamide/Brimonidine Tart [Simbrinza 1%-0.2% Eye Drops] 1 drop RIGHT EYE BID Cholecalciferol (Vitamin D3) [Vitamin D3] 2,000 unit PO DAILY glipiZIDE [Glucotrol] 10 mg PO DAILY Insulin Glargine,Hum.rec.anlog [Basaglar Kwikpen U-100] 60 unit SQ DAILY Travoprost 1 drop BOTH EYES HS Naproxen 500 mg PO BID PRN PRN Reason: Headache Discharge Medication List DULoxetine HCL [Cymbalta] 60 mg PO BID 05/08/17 [History] Gabapentin [Neurontin] 300 mg PO BID 05/08/17 [History] Magnesium Oxide [Mag-Ox] 400 mg PO TID 05/08/17 [History] metFORMIN HCL 1,000 mg PO BID 05/08/17 [History] rOPINIRole HCL [Requip] 1 mg PO HS 05/08/17 [History] Alogliptin Benzoate [Alogliptin] 12.5 mg PO DAILY 08/22/19 [History] Aspirin EC [Ecotrin Low Dose] 81 mg PO DAILY 08/22/19 [History] Atropine Ophth Soln 1% 5Ml [Isopto Atropine 1% 5Ml] 1 drops LEFT EYE BID 08/22/19 [History] Brinzolamide/Brimonidine Tart [Simbrinza 1%-0.2% Eye Drops] 1 drop RIGHT EYE BID 08/22/19 [History] Cholecalciferol (Vitamin D3) [Vitamin D3] 2,000 unit PO DAILY 08/22/19 [History] Insulin Glargine,Hum.rec.anlog [Basaglar Kwikpen U-100] 60 unit SQ DAILY 08/22/19 [History] Naproxen 500 mg PO BID PRN 08/22/19 [History] Travoprost 1 drop BOTH EYES HS 08/22/19 [History] glipiZIDE [Glucotrol] 10 mg PO DAILY 08/22/19 [History] Follow up Appointment(s)/Referral(s): Nonstaff,Physician [Primary Care Provider] - 1-2 days Discharge Disposition: - Preliminary Cause of Preliminary Cause of : arrhythmia
--- NOTE | 2019-08-31 14:04 | CDI ---
Documentation Clarification Form Date: 08/31/19 From: Kelly Tony Phone: If you have a question about this query, please contact Peggy Carson, Scale Shooter at [phone] between 8am and 5pm. Admit Date: 08/22/19 Discharge Date: 08/28/19 Patient Name: JJ BURKETT Visit Number: [id number] ATTENTION: The Clinical Documentation Specialists (CDI) and [facility] Coding Staff appreciate your assistance in clarifying documentation. Please respond to the clarification below the line at the bottom and electronically sign. The CDI & [facility] Coding staff will review the response and follow-up if needed. Please note: Queries are made part of the Legal Health Record. If you have any questions, please contact the author of this message via ITS. Dear Dr. Nellie Machuca, Atrial Fibrillation is documented in the CPR record and DS, History/Risk Factors: COVID 19 W MD, PE, acute hypoxic respiratory failure, viral pneumonia and viral gastroenteritis Clinical Indicators: Patient arrested and was given 1 dose of epi and 1 of bicarb and again achieved ROSC with A fib with RVR note on the monitor. In your professional opinion, can you please clarify the type of Atrial Fibrillation, if known? Chronic Permanent Paroxysmal Persistent, longstanding Persistent, other Persistent, permanent Other, please specify Unable to determine Patient only had a brief episode of A Fib after CPR this is not clinically significant MTDD
== END 2019-08-28 22:34 | disposition expired | DRG 208 ==
LOC: EC 14:55 → 3SCARD 16:42 → 2SICU 08-26 04:01 → 3SCARD 08-28 15:19 → 2SICU 08-28 18:49
PROVIDERS: ADMIT Family Medicine; ATTEND Family Medicine
PROC: 0BH17EZ Insertion of Endotracheal Airway into Trachea, Via Natural or Artificial Opening (ICD-10-PCS; principal; 2019-08-28)
PROC: 5A1935Z Respiratory Ventilation, Less than 24 Consecutive Hours (ICD-10-PCS; principal; 2019-08-28)
PROC: 5A12012 Performance of Cardiac Output, Single, Manual (ICD-10-PCS; 2019-08-28)
PROC: 5A12012 Performance of Cardiac Output, Single, Manual (ICD-10-PCS; 2019-08-28)
DX: U07.1 COVID-19 (principal); I21.19 ST elevation (STEMI) myocardial infarction involving other coronary artery of inferior wall; J96.01 Acute respiratory failure with hypoxia; I26.93 Single subsegmental thrombotic pulmonary embolism without acute cor pulmonale; J15.9 Unspecified bacterial pneumonia; J12.89 Other viral pneumonia; D68.69 Other thrombophilia; E87.1 Hypo-osmolality and hyponatremia; I50.22 Chronic systolic (congestive) heart failure; A08.39 Other viral enteritis; I44.1 Atrioventricular block, second degree; E11.40 Type 2 diabetes mellitus with diabetic neuropathy, unspecified; I46.8 Cardiac arrest due to other underlying condition; Z66 Do not resuscitate; E11.65 Type 2 diabetes mellitus with hyperglycemia; E87.6 Hypokalemia; I25.5 Ischemic cardiomyopathy; E78.5 Hyperlipidemia, unspecified; F32.9 Major depressive disorder, single episode, unspecified; E83.42 Hypomagnesemia; R00.1 Bradycardia, unspecified; M54.2 Cervicalgia; Z79.4 Long term (current) use of insulin; M54.9 Dorsalgia, unspecified; M79.18 Myalgia, other site; D64.9 Anemia, unspecified; M19.90 Unspecified osteoarthritis, unspecified site; Z79.82 Long term (current) use of aspirin; Z79.899 Other long term (current) drug therapy; Z98.890 Other specified postprocedural states; W19.XXXA Unspecified fall, initial encounter; Z82.49 Family history of ischemic heart disease and other diseases of the circulatory system; Z80.9 Family history of malignant neoplasm, unspecified
CPT/HCPCS: 36415; 36600; 71045; 71275; 80048; 80053; 82550; 82805; 83605; 83615; 83735; 83880; 84100; 84145; 84484; 85025; 85379; 85610; 85730; 86140; 87040; 87635; 92950; 93005; 93306; 93970; 94002; 96365; 96366; 99291